=== PATIENT | male | born 1945 | race Caucasian/White ===

== ENCOUNTER 2017-04-18 08:00 | Day surgery (SDC) | payer MEDICARE, BC ==
[~2017-04-18] VITALS: Ht 182.9 cm; Wt 93.4 kg
[~2017-04-18 08:00] MED LIST: ASPI1TAB PO; CRES40TA PO; D31000CA4 PO; ISOS30TA4 PO; LOSA50TA20 PO; LR 1,000 ML IV ONE; METF500T13 PO; NEXI20GR PO; WARF-21 PO; WARF-22 PO; WARF-23 PO; [UNRECOGNIZED DRUG - OTHER] PO
[2017-04-18 08:43] LABS: INR 1.07
[2017-04-18 08:56] LABS: BILIRUBIN,DIRECT 0.2 MG/DL (0.0-0.2); BILIRUBIN,TOTAL 0.7 MG/DL (0.2-1.0)
[2017-04-18] MEDS ORDERED: LOVE0.8I SC (09:06)
[2017-04-18] MEDS ORDERED: LIDOCAINE 2% INJ 100 MG/5 ML SDV (FOR ANES.) As Ordered ONE ×2 (09:36→10:53)
[2017-04-18] MEDS ORDERED: GLYCOPYRROLATE INJ 0.2 MG/ML 2 ML VIAL As Ordered ONE (09:36)
[2017-04-18] MEDS ORDERED: ROCURONIUM BROMIDE 50 MG/5 ML VIAL/SYRINGE As Ordered ONE ×2 (09:36→10:45)
[2017-04-18] MEDS ORDERED: PROPOFOL 200 MG/20 ML VIAL As Ordered ONE ×2 (09:36→10:53)
[2017-04-18] MEDS ORDERED: ONDANSETRON 4MG/2ML VIAL (J2405) As Ordered ONE (09:36)
[2017-04-18] MEDS ORDERED: MIDAZOLAM INJ 2 MG/2 ML VIAL (J2250) As Ordered ONE (09:36)
[2017-04-18] MEDS ORDERED: BUPIVACAINE/EPIN 0.25% 30 ML VIAL As Ordered ONE (09:52)
[2017-04-18] MEDS ORDERED: fentaNYL 100 MCG/2 ML INJECTION (J3010) As Ordered ONE ×2 (10:17→10:53)
[2017-04-18] MEDS ORDERED: HYDROmorphone HCL 2 MG/ML 1ML VIAL (J1170) As Ordered ONE (10:54)
[2017-04-18] MEDS ORDERED: HYDROmorphone HCL 1 MG/ML SYRINGE (J1170) IV PRN (12:00)
[2017-04-18] MEDS ORDERED: NORCO, ANEXSIA 5/325MG TABLET (HYDROcodone/ACETAMINOPHEN) PO PRN (12:00)
[2017-04-18] MEDS ORDERED: PERCOCET 5MG/325MG TAB PO PRN (12:00)
[2017-04-18] MEDS ORDERED: fentaNYL 100 MCG/2 ML INJECTION (J3010) IV PRN (12:00)
[2017-04-18] MEDS ORDERED: LR 1,000 ML IV SCH (12:00)
[2017-04-18] MEDS ORDERED: ONDANSETRON 4MG/2ML VIAL (J2405) IV PRN (12:00)
[2017-04-18] MEDS ORDERED: METOCLOPRAMIDE INJ 10MG/2ML VIAL (J2765) As Ordered ONE (13:24)
[2017-04-18] MEDS ORDERED: METOCLOPRAMIDE INJ 10MG/2ML VIAL (J2765) IV ONE (13:45)
[2017-04-18 14:01] VITALS: BP 149/67
--- NOTE | 2017-04-21 06:53 | RO ---
DATE OF PROCEDURE: 04/18/2017 PREOPERATIVE DIAGNOSIS: Chronic cholecystitis with cholelithiasis. POSTOPERATIVE DIAGNOSIS: Chronic cholecystitis with cholelithiasis. PROCEDURE: Laparoscopic cholecystectomy. SURGEON: Dr. Milad Monson PIPE OUT WORKER: Dr. Kirk ANESTHESIA: General: ESTIMATED BLOOD LOSS: 10. COMPLICATIONS: None. INDICATIONS FOR PROCEDURE: The patient is a 71-year-old male who had a history of bacteremia recently due to an attack of acute cholecystitis. He was then transferred to [place] for evaluation. Recommendation was to proceed with laparoscopic and possible open cholecystectomy. We checked his labs preoperatively. His bilirubins were all normal. Therefore, there was no need for intraoperative cholangiogram (IOC) at this time. The risks and benefits of the procedure, not limited to, but including bleeding, infection, hernia formation, damage to surrounding structures, and need for further surgery were discussed in detail with the patient. Informed consent was obtained and the procedure was planned. PROCEDURE: The patient was brought back to operating room six after sufficient sedation and the abdomen was sterilely prepped and draped. Next, a time out was done to confirm proper patient and proper procedure. Following that, a stab incision was made in left upper quadrant and a Veress needle was inserted and the abdomen was insufflated to 15 mmHg. Next, a 5 mm incision was made infraumbilically. The incision was carried down to the level of the fascia. The abdomen was entered with a 5 mm OptiView port. The abdomen was examined, noting a lot of adhesions in the right upper quadrant and a normal Veress site. The Veress was then removed and the incision was extended and a 5 mm port was placed there. Using sharp dissection, the adhesions were all taken down without any difficulty. Once that was completed, an 11 mm port was placed subxiphoid and two 5 mm ports in the right upper quadrant. The gallbladder was grasped and elevated up towards the right shoulder. The cystic duct and cystic artery were both dissected free using a combination of blunt and sharp dissection. Once they were both clearly identified, they were both doubly clamped and cut. The gallbladder was then removed from the gallbladder fossa using electrocautery. The right upper quadrant was examined. No signs of bleeding were noted. The abdomen was then desufflated again. Skin incisions were closed with #4-0 Vicryl subcuticular sutures. The abdomen was cleaned and dried. Steri-Strips, 4x4 and tape were applied, thus ending the procedure.
== END 2017-04-18 15:15 | disposition home or self-care (01) ==
LOC: M SDC 08:00
PROVIDERS: ATTEND Surgery
DX: K80.10 Calculus of gallbladder with chronic cholecystitis without obstruction (principal)

== ENCOUNTER 2017-04-20 08:53 | Inpatient (IN) | payer MEDICARE, BC ==
[~2017-04-20] VITALS: Ht 182.9 cm; Wt 99.2 kg
[~2017-04-20 08:53] MED LIST changes: +LOVE0.8I SC; -LR 1,000 ML IV ONE
[2017-04-20] MEDS ORDERED: NS 500 ML IV ONE ×2 (09:15→10:00)
[2017-04-20] MEDS ORDERED: fentaNYL 100 MCG/2 ML INJECTION (J3010) IV ONE ×2 (09:30→11:00)
[2017-04-20] MEDS ORDERED: MORPHINE 2 MG/ML 1ML SYRINGE IV ONE (09:30)
[2017-04-20 09:41] LABS: BASO # 0.1 K/mm3 (0.0-0.2); BASO % 0.3 % (0.0-1.0); EOS % 0.3 % (0.0-3.0); LARGE UNSTAINED CELL # 0.3 K/mm3 (0.0-0.4); LARGE UNSTAINED CELL % 1.7 % (0.0-4.0); LYMPH # 1.6 K/mm3 (1.5-4.5); LYMPH % 7.9 % (24.0-44.0); MEAN CORPUSCULAR HEMOGLOBIN 31.7 pg (27.0-33.0); MEAN CORPUSCULAR HGB CONC 33.7 g/dl (32.0-36.5); MEAN CORPUSCULAR VOLUME 94.2 fl (80.0-96.0); MONO # 1.5 K/mm3 (0.0-0.8); MONO % 8.9 % (0.0-5.0); NEUTROPHILS # 13.6 K/mm3 (1.8-7.7); PLATELET COUNT, AUTOMATED 231 k/mm3 (150-450); WHITE BLOOD COUNT 16.8 K/mm3 (4.0-10.0)
[2017-04-20] MEDS ORDERED: NS 250 ML IV ONE ×2 (09:45→10:15)
[2017-04-20 09:46] LABS: INR 1.47
[2017-04-20 09:49] LABS: ALBUMIN 3.6 GM/DL (3.2-5.2); ALBUMIN/GLOBULIN RATIO 0.88 (1.00-1.93); BILIRUBIN,DIRECT 0.4 MG/DL (0.0-0.2); BILIRUBIN,TOTAL 1.4 MG/DL (0.2-1.0); CALCIUM LEVEL 8.8 MG/DL (8.8-10.2); CREATININE FOR GFR 3.5 MG/DL (0.70-1.30); GLOMERULAR FILTRATION RATE 18.5 (>42); POTASSIUM SERUM 3.9 MEQ/L (3.5-5.1); TOTAL PROTEIN 7.7 GM/DL (6.4-8.2)
[2017-04-20] MEDS ORDERED: NS 1,000 ML IV ONE (10:15)
[2017-04-20] MEDS ORDERED: PIPERACILLIN/TAZOBACTAM SOD 2.25 GM in D5W MINI-BAG PLUS 50 ML IV ONE (10:15)
[2017-04-20] MEDS ORDERED: ISOS30TA4 PO (10:44)
[2017-04-20] MEDS ORDERED: NEXI20CA PO (10:44)
[2017-04-20] MEDS ORDERED: ASPI81TA24 PO (10:44)
[2017-04-20] MEDS ORDERED: VITA100066 PO (10:44)
[2017-04-20] MEDS ORDERED: LOVE0.8I SC (10:44)
[2017-04-20] MEDS ORDERED: EYECAP PO (10:44)
[2017-04-20] MEDS ORDERED: LOSA50TA20 PO (10:44)
[2017-04-20] MEDS ORDERED: WARF-21 PO (10:48)
[2017-04-20] MEDS ORDERED: SENO8.6T10 PO (10:48)
[2017-04-20] MEDS ORDERED: CRES40TA PO (10:48)
[2017-04-20] MEDS ORDERED: WARF-22 PO (10:48)
[2017-04-20] MEDS ORDERED: ACETAMINOPHEN TAB 650MG DOSE (2X325MG) PO PRN (11:45)
[2017-04-20] MEDS ORDERED: ONDANSETRON 4MG/2ML VIAL (J2405) IV PRN (11:45)
[2017-04-20] MEDS ORDERED: NORCO, ANEXSIA 5/325MG TABLET (HYDROcodone/ACETAMINOPHEN) PO PRN (11:45)
[2017-04-20] MEDS: LR 1,000 ML IV SCH ×2 (12:20→18:40)
[2017-04-20] MEDS: MORPHINE 4 MG/ML 1ML SYRINGE IV PRN ×4 (12:20→23:54)
--- NOTE | 2017-04-20 13:01 | HPEPDOC ---
General Surgery H&P Date of Admission Apr 20, 2017 at 11:36 History and Physical CHIEF COMPLAINT: abdominal pain HISTORY OF PRESENT ILLNESS: 71 M with significant history of mechanical heart valve on coumadin who had cholecystectomy done last Friday and returns to the ED complaining of severe right upper quadrant abdominal pain, worsening with taking deep breaths. He has been maintained on lovenox (last dose this am) and he has resumed his coumadin (took last night). He reports increasing right upper quadrant discomfort not relieved by the norco he was given postoperatively. He was brought to [facility] ER last night, labs drawn were unremarkable and discharged home on percocets after he felt mildly improved with morphine. Overnight he did not get any relief from his abdominal pain and was having low grade fever. ALLERGIES: Please see below. HOME MEDICATIONS: Please see below. 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 ATHEROSCLEROSIS CORONARY ARTERY WITH UNSTABLE PECTORIS URINARY CALCULI OCULAR MIGRAINES HYPERLIPIDEMIA CATARACT BILATERAL ALLERGIC RHINITIS BUNDLE BRANCH BLOCK BARRETTS ESOPHAGUS HYPERTENSION ATYPICAL CHEST PAIN ENLARGED PROSTATE SOLITARY PULMONARY NODULE CHOLELITHIASIS WITHOUT OBSTRUCION MACULAR DEGENERATION LUMBAGO REMOTE ADVISOR USE OF ANTICOAGULANTS GLAUCOMA CHRONIC KINDEY DISEASE STAGE 3 CERVICALGIA PAST SURGICAL HISTORY: ANGIOGRAM 12/13 ANGIOPLASTY W/STENT 10/08 AND 10/12 APPENDECTOMY 1980 CABG 1992 COLONOSCOPY 12/31 AND 02/01 AND 04/05 AND 05/09 VARICOSE VEINS 1977 AORTIC VALVE REPLACEMENT 12/06 PERSONAL/SOCIAL HISTORY: Denies smoking, alcohol use, or recreational drug use. REVIEW OF SYSTEMS: GENERAL: Reports low-grade fever, no chills over the weekend postoperatively HEENT: Denies blurred vision and double vision. Denies ear symptoms. Denies hoarseness. NECK: Denies any neck pain. CARDIOVASCULAR: Denies chest pain and palpitations. MUSCULOSKELETAL: Denies arthralgias, back pain and thrombophlebitis. SKIN: Denies rash. NEUROLOGIC: Denies headache, stroke and transient ischemic attack. PSYCHIATRIC: Denies anxiety and depression. ENDOCRINE: Denies thyroid disease. HEMATOLOGY/ONCOLOGY: Denies any bleeding or clotting disorder. Patient is on Lovenox shots as bridge therapy and Coumadin for mechanical heart valve HEART: Denies any chest pains, palpitations, paroxysmal dyspnea, orthopnea. PULMONARY: Denies chronic cough, dyspnea and wheezing. GASTROINTESTINAL: Denies rectal bleeding, family history of colon cancer, constipation, diarrhea, dysphagia, heartburn and jaundice. GENITOURINARY: Denies dysuria, frequency, hematuria and nocturia. ENDOCRINE: Denies polydipsia, polyphagia, polyuria, heat or cold intolerance. INFECTIOUS: Denies any recent upper respiratory tract infection, UTI, need for use of antibiotics. NUTRITION: Reports poor appetite PHYSICAL EXAMINATION: VITAL SIGNS: Please see below. GENERAL APPEARANCE: Patient seen at bedside, mildly uncomfortable. HEENT: Normocephalic, atraumatic. Slight pale palpebral conjunctivae. Anicteric sclerae. Lips dry CHEST: No chest wall abnormalities. Normal respiratory motion/effort. NECK: Supple. No thyromegaly. No lymphadenopathies. LUNGS: Lung sounds are clear to auscultation bilaterally. No wheezing appreciated. Decreased breath sounds both bilateral areas. HEART: No chest wall abnormalities. Heart rate and rhythm are regular with no murmurs. ABDOMEN: Abdomen is obese, markedly rounded, protuberant, tympanitic to percussion, port sites are clean dry and intact, small amount of hematoma in the left side/left flank area. Tender to palpation over the right upper quadrant with mild guarding. SKIN: Warm, dry EXTREMITIES: Extremities have no deformities. No edema identified. NEUROLOGICAL: . ANCILLARIES: . LABORATORY DATA: Please see below. MICROBIOLOGY: Please see below. IMAGING: Noncontrast CT abdomen and pelvis Very large new perihepatic hematoma, largely subcapsular but with some hemoperitoneum. There is a small, component of hematoma in the omental fat. At its largest, the perihepatic hematoma displayes dimensions of 16.8 centimeters anteroposterior by 6.0 cm medial to lateral by 17.9 cm craniocaudal. IMPRESSION AND PLAN: S/P Laparoscopic Cholecystectomy Postoperative hematoma Dehydration - with acute elevation of his BUN and creatinine Patient will be admitted to the PCU we will continue to monitor his hemodynamic parameters as well as his hemoglobin and hematocrit. He may or may not need blood transfusion. So far he got 2 L of IV fluids and 125 ML's of crystalloid in our running. He was reported to have had some drop in his blood pressure when he got up to urinate. With regards to his anticoagulation, we'll hold both the Lovenox and the Coumadin. His Lovenox would still be active at this point that he got a shot of Lovenox this morning. Unfortunately this is not reversible. Also the main issue will be trying to balance the timing of the anticoagulation to the bleeding. He will need to restart his anticoagulation probably will heparin drip once we are sure that his active bleeding has stopped. The last the medical service to come see him and help us manage his other medical problems. Vital Signs Vital Signs Date Time Temp Pulse Resp B/P (MAP) Pulse Ox O2 Delivery O2 Flow Rate FiO2 04/20/17 12:20 16 04/20/17 10:30 88 97/58 (71) 98 04/20/17 09:15 Room Air 04/20/17 08:53 97.7 Laboratory Data Labs 24H Laboratory Tests 2 04/20/17 09:03: White Blood Count 16.8H, Red Blood Count 4.29L, Hemoglobin 13.6L, Hematocrit 40.4L, Mean Corpuscular Volume 94.2, Mean Corpuscular Hemoglobin 31.7, Mean Corpuscular Hemoglobin Concent 33.7, Red Cell Distribution Width 14.0, Platelet Count 231, Neutrophils (%) (Auto) 81.0H, Lymphocytes (%) (Auto) 7.9L, Monocytes (%) (Auto) 8.9H, Eosinophils (%) (Auto) 0.3, Basophils (%) (Auto) 0.3, Neutrophils # (Auto) 13.6H, Lymphocytes # (Auto) 1.6, Monocytes # (Auto) 1.5H, Eosinophils # (Auto) 0.0, Basophils # (Auto) 0.1, Large Unclassified Cells % 1.7 , Large Unclassified Cells # 0.3, Prothrombin Time 18.2H, Prothromb Time International Ratio 1.47, Activated Partial Thromboplast Time 58.7H, Anion Gap 15, Glomerular Filtration Rate 18.5L, Lactic Acid Level 6.4*H, Calcium Level 8.8 , Aspartate Amino Transf (AST/SGOT) 76H, Alanine Aminotransferase (ALT/SGPT) 102H, Alkaline Phosphatase 62, Total Bilirubin 1.4#H, Direct Bilirubin 0.4H, Total Creatine Kinase 88, Creatine Kinase MB 1.0, Creatine Kinase MB Relative Index 1.13, Troponin I 0.06, Total Protein 7.7, Albumin 3.6, Albumin/Globulin Ratio 0.88L, Lipase 261 CBC/BMP Laboratory Tests 04/20/17 09:03 Red Blood Count 4.29 L, Mean Corpuscular Volume 94.2, Mean Corpuscular Hemoglobin 31.7, Mean Corpuscular Hemoglobin Concent 33.7, Red Cell Distribution Width 14.0, Neutrophils (%) (Auto) 81.0 H, Lymphocytes (%) (Auto) 7.9 L, Monocytes (%) (Auto) 8.9 H, Eosinophils (%) (Auto) 0.3, Basophils (%) ( Auto) 0.3, Neutrophils # (Auto) 13.6 H, Lymphocytes # (Auto) 1.6, Monocytes # ( Auto) 1.5 H, Eosinophils # (Auto) 0.0, Basophils # (Auto) 0.1 Microbiology Microbiology 04/20/17 Blood Culture, Received Pending 04/20/17 Blood Culture, Received Pending Home Medications Scheduled Aspirin (Aspirin EC) 81 Mg Tab, 81 MG PO QHS, (Reported) Cholecalciferol (Vitamin D) 1,000 Unit Tab, 1,000 UNIT PO DAILY, (Reported) Enoxaparin Sodium (Lovenox) 100 Mg/Ml Inj, 100 MG SC DAILY, (Reported) Esomeprazole Magnesium Trihydr (Nexium) 20 Mg Cap, 20 MG PO BID, (Reported) Isosorbide Mononitrate (Isosorbide Mononitrate ER) 30 Mg Tab, 30 MG PO DAILY, ( Reported) Losartan Potassium (Losartan Potassium) 50 Mg Tab, 50 MG PO QHS, (Reported) Multivitamins (Eye Vitamins) 1 Cap Cap, 1 CAP PO DAILY, (Reported) Rosuvastatin Calcium (Crestor) 40 Mg Tab, 40 MG PO QHS, (Reported) Warfarin Sod (Warfarin Sodium) 10 Mg Tab, 10 MG PO 5XW, (Reported) QHS: SUN, , WED, FRI, SAT Warfarin Sod (Warfarin Sodium) 7.5 Mg Tab, 7.5 MG PO 2XW, (Reported) QHS: MON & THURS Scheduled PRN Docusate Sod/Senna (Senokot S 8.6-50 mg) 1 Tab Tab, 1 TAB PO BID PRN for CONSTIPATION, (Reported) Allergies Coded Allergies: No Known Allergies (Unverified , 04/18/17) VALE SANFORD MD Apr 20, 2017 13:01
[2017-04-20 14:20] VITALS: BP 116/62
--- NOTE | 2017-04-20 19:16 | CR ---
DATE OF CONSULTATION: 04/20/2017 This is a patient of Dr. Ballesteros, Dr. Pathak, Dr. Monson. CHIEF COMPLAINT: Abdominal pain. SUMMARY OF PRESENTATION: This is a 71-year-old who had a laparoscopic cholecystectomy done on 04/18/2017. He has a mechanical mitral valve, was sent home with Lovenox for anticoagulation. He felt somewhat bloated and uncomfortable when he went home. On Friday the pain got worse. On Friday he went to the [place] emergency room around 5:00 p.m. on Friday and stayed there until about 11:30. He was sent home with some pain medication. He had a terrible evening. He has sharp right upper quadrant pain, made worse with breathing. He said that it even hurts to burp. He had no vomiting. No chest pain. He had a normal bowel movement on Friday but not one today. He normally is quite flatulent. Today he has only had one episode of flatus and none recently. He has had no chest pain. This past evening he woke up at 5:00 a.m. He was not feeling well. He drank a large cup of iced coffee, too, his medications and his Lovenox, went back to bed and woke up at 7:00 to 7:30, felt lightheaded and like he might pass out. He felt that way all morning and his called the surgical service and he was instructed to come to the emergency department. In the emergency department, he was found to have evidence of an intraabdominal hematoma. He is undergoing transfusions at this point on the surgical service and I was asked to see him in medical consultation. He has listed allergy to doxycycline. Home medication list is not yet available. PAST MEDICAL HISTORY: Notable for: 1. Anemia. 2. Gastroesophageal reflux disease (GERD). 3. Anxiety. 4. Colonic polyps. 5. Varicose veins. 6. He has a listed diagnosis of aortic valve replacement. 7. History of atherosclerosis. 8. Urinary stones. 9. Ocular migraines. 10. Hyperlipidemia. 11. Cataracts. 12. Allergic rhinitis. 13. Left bundle branch block. 14. Cedillo's esophagus. 15. Hypertension. 16. Enlarged prostate. 17. Solitary pulmonary nodule. 18. Cholelithiasis. 19. Macular degeneration. 29. Chronic kidney disease stage III. I do not know his baseline creatinine. SURGICAL HISTORY: 1. Angiogram. 2. Stenting. 3. Appendectomy. 4. Coronary artery bypass graft (CABG). 5. Colonoscopies. 6. Aortic valve replacement in November 2006. FAMILY HISTORY: Notable for a father who at age 66 of some sort of bone cancer. Mother at age 90 of old age. SOCIAL HISTORY: He has a remote smoking history. He does not drink any particular alcohol. REVIEW OF SYSTEMS: Notable for no headache. No visual changes. No runny nose. No sore throat. He is not particularly hungry. He does not have chest pain. He has not been short of breath. No palpitations. He has felt lightheaded when he stands up. He had a bowel movement yesterday. He did not describe any dysuria. Otherwise unremarkable. PHYSICAL EXAMINATION: VITAL SIGNS: Temperature 98.0, pulse 91, respiratory rate 18, blood pressure 116/62, 97% on room air. His blood pressure has been low. He is awake, appropriately interactive, pleasantly conversant. He is uncomfortable with position change and spontaneously intermittently he is seen to wince. HEAD: Normocephalic. Sinuses nontender. Mucous membranes are tacky. NECK: Supple. Thick. LUNGS: Breathing is symmetrically diminished. HEART: Distant sounding. Normal S1, S2. There is a metallic click, loudest on the left mid clavicular line, which to me seems somewhat unusual for an aortic valve. Radial pulses are 1+. Capillary refill is less than 2 seconds. ABDOMEN: Grossly distended. Tympanitic. There is bruising of the subcutaneous tissue, especially on the left lower quadrant. There is tenderness in the right upper quadrant without rebound or guarding. EXTREMITIES: There is no significant lower extremity edema. He is moving all four extremities. PSYCHIATRIC: He has normal mood and affect. White cell count is 16.8, hemoglobin 13.6, and platelets of 231. INR is 1.47. BUN 23, creatinine 3.5. We do not have a baseline. Glucose of 167, lactic acid 6.4 and repeat is 3.8. Troponin 0.06. Blood culture pending. Abdominal and pelvic CT shows very large new perihepatic hematoma, largely subcapsular with some hemoperitoneum. There is a small component of hematoma in the omental fat. Perihepatic hematoma displays dimensions of 16 cm anteroposteriorly by 6 cm medially to laterally by 17.9 cm equina caudal. Chest x-ray showed bilateral lower plate-like atelectasis, right greater than left. Relatively low level of inspiration. Previous sternotomy. ASSESSMENT: As follows: This is a 71-year-old with postoperative hematoma. PLAN: As follows: 1. Hematoma. Management per the primary surgery team. At this point, the plan is to withhold Lovenox and plan to restart with heparin for prophylaxis against stroke in the setting of his mechanical valve. I would recommend following up with his outpatient mobile security specialist tomorrow for further guidance or perhaps even consultation as deemed clinically necessary. Certainly stop anticoagulation for 24 hours is not unreasonable and even 48 could be considered, but would defer to cardiology in this regard. 2. The patient has acute renal failure. We do not know his baseline creatinine. We will obtain old records from Dr. Ballesteros, as able tomorrow. We will calculate a FENA. Giving IV fluids and blood. Most likely this represents a hypotensive state. The patient is receiving blood during my evaluation. 3. The patient has hyperlipidemia. We will continue his statin. 4. The patient has hypertension by history, which certainly is not a current problem. 5. The patient has a doting family at bedside. 6. Deep vein thrombosis (DVT) prophylaxis will be mechanical. MTDD
[2017-04-20 19:48] LABS: CALCIUM LEVEL 7.9 MG/DL (8.8-10.2); CREATININE FOR GFR 3.73 MG/DL (0.70-1.30); GLOMERULAR FILTRATION RATE 17.2 (>42); POTASSIUM SERUM 4.5 MEQ/L (3.5-5.1)
[2017-04-20 19:59] VITALS: BP 120/59
[2017-04-20 20:54] LABS: CALCIUM OXALATE CRYSTALS SMALL
[2017-04-20] MEDS ORDERED: ROSUVASTATIN 10 MG TAB (CRESTOR) PO SCH (21:00)
[2017-04-20] MEDS ORDERED: PANTOPRAZOLE 40MG INJ (PROTONIX) (C9113) IV ONE (21:30)
--- NOTE | 2017-04-20 21:37 | ECGEPIP ---
Stationary ECG Study [facility] - ED Test Date: 2017-04-20 Pat Name: NEENA THOMPSON Department: Room: - Gender: M Piggery Worker: bryant : 1945 Requested By: GAVIN Reid Order Number: [id number] Reading MD: Magali Lindsay Measurements Intervals [place] Rate: 97 P: 40 W[place]: 183 QRS: 269 QRSD: 148 T: 39 QT: 371 QTc: 473 Interpretive Statements SINUS RHYTHM MARKED RIGHT AXIS DEVIATION RIGHT BUNDLE BRANCH BLOCK NO PRIOR FOR COMPARISON Electronically Signed On 04-20-2017 21:37:17 EDT by Magali Lindsay
[2017-04-20] MEDS: NORCO, ANEXSIA 5/325MG TABLET (HYDROcodone/ACETAMINOPHEN) PO PRN (21:44)
[2017-04-20] MEDS: SENOKOT S TAB PO SCH (21:45)
[2017-04-20 23:46] VITALS: BP 118/62
[2017-04-21] VITALS (21 sets, daily range): BP systolic 78–116; BP diastolic 46–72
[2017-04-21 02:40] LABS: ALBUMIN 2.8 GM/DL (3.2-5.2); ALBUMIN/GLOBULIN RATIO 0.88 (1.00-1.93); CALCIUM LEVEL 7.7 MG/DL (8.8-10.2); CREATININE FOR GFR 4.66 MG/DL (0.70-1.30); GLOMERULAR FILTRATION RATE 13.3 (>42); POTASSIUM SERUM 4.6 MEQ/L (3.5-5.1)
[2017-04-21] MEDS ORDERED: LR 1,000 ML IV ONE (03:00)
[2017-04-21] MEDS: LR 1,000 ML IV SCH ×2 (04:00→11:36)
[2017-04-21] MEDS: NORCO, ANEXSIA 5/325MG TABLET (HYDROcodone/ACETAMINOPHEN) PO PRN (04:52)
[2017-04-21 08:21] LABS: ALBUMIN 2.9 GM/DL (3.2-5.2); ALBUMIN/GLOBULIN RATIO 1.16 (1.00-1.93); ALKALINE PHOSPHATASE 64 U/L (45-117); ALT/SGPT 2090 U/L (12-78); ANION GAP 14 MEQ/L (8-16); AST/SGOT 2383 U/L (15-37); BILIRUBIN,TOTAL 0.9 MG/DL (0.2-1.0); BLOOD UREA NITROGEN 44 MG/DL (7-18); CALCIUM LEVEL 7.7 MG/DL (8.8-10.2); CARBON DIOXIDE LEVEL 22 MEQ/L (21-32); CHLORIDE LEVEL 102 MEQ/L (98-107); CREATININE FOR GFR 5.07 MG/DL (0.70-1.30); GLOMERULAR FILTRATION RATE 12.1 (>42); GLUCOSE, FASTING 136 MG/DL (83-110); MAGNESIUM LEVEL 2.1 MG/DL (1.8-2.4); PHOSPHORUS LEVEL 5.5 MG/DL (2.5-4.9); POTASSIUM SERUM 4.7 MEQ/L (3.5-5.1); SODIUM LEVEL 138 MEQ/L (136-145); TOTAL PROTEIN 5.4 GM/DL (6.4-8.2)
[2017-04-21] MEDS: SENOKOT S TAB PO SCH ×2 (09:00→21:00)
[2017-04-21] MEDS ORDERED: MORPHINE 2 MG/ML 1ML SYRINGE IV ONE ×2 (09:30→10:45)
[2017-04-21] MEDS: PANTOPRAZOLE 40MG INJ (PROTONIX) (C9113) IV SCH (09:31)
[2017-04-21] MEDS: MORPHINE 4 MG/ML 1ML SYRINGE IV PRN ×2 (12:44→14:55)
[2017-04-21 12:50] LABS: BASO % 0.1 % (0.0-1.0); EOS % 0.3 % (0.0-3.0); LARGE UNSTAINED CELL # 0.3 K/mm3 (0.0-0.4); LARGE UNSTAINED CELL % 2.3 % (0.0-4.0); LYMPH # 0.8 K/mm3 (1.5-4.5); LYMPH % 5.2 % (24.0-44.0); MEAN CORPUSCULAR HEMOGLOBIN 31.3 pg (27.0-33.0); MEAN CORPUSCULAR HGB CONC 33.6 g/dl (32.0-36.5); MEAN CORPUSCULAR VOLUME 93.2 fl (80.0-96.0); NEUTROPHILS # 9.3 K/mm3 (1.8-7.7); NEUTROPHILS % 83.1 % (36.0-66.0); PLATELET COUNT, AUTOMATED 206 k/mm3 (150-450); RED CELL DISTRIBUTION WIDTH 14.6 % (11.5-14.5); WHITE BLOOD COUNT 11.2 K/mm3 (4.0-10.0)
--- NOTE | 2017-04-21 13:45 | REP ---
CT ABDOMEN AND PELVIS WITHOUT IV OR ORAL CONTRAST: HISTORY: Abdomen pain. Status post gallbladder surgery [address] FINDINGS: There is a very large new hematoma along the right anterior and lateral and posterior aspect of the liver. Much of this appears to be subcapsular in its configuration and appearance, however there is some blood tracking in the some hepatic space and the perihepatic space extending into the paracolic gutter. There is also some hemoperitoneum in the pelvic reflections. Spleen is unremarkable and unchanged. No pancreatic abnormality is seen. There are gallbladder clips. There is some adjacent small hematoma in the omental fat beneath the gallbladder fossa. IMPRESSION: Very large new perihepatic hematoma, largely subcapsular but with some hemoperitoneum. There is a small, component of hematoma in the omental fat. At its largest, the perihepatic hematoma displays dimensions of 16.8 cm anteroposterior x 6.0 cm medial to lateral x 17.9 cm craniocaudal. Signed by Twan Mcleod MD 04/21/2017 03:04 P
[2017-04-21 14:01] LABS: ALBUMIN 2.7 GM/DL (3.2-5.2); BILIRUBIN,TOTAL 0.9 MG/DL (0.2-1.0); CALCIUM LEVEL 7.4 MG/DL (8.8-10.2); CREATININE FOR GFR 5.68 MG/DL (0.70-1.30); GLOMERULAR FILTRATION RATE 10.6 (>42); POTASSIUM SERUM 5.1 MEQ/L (3.5-5.1); TOTAL PROTEIN 5.4 GM/DL (6.4-8.2)
--- NOTE | 2017-04-21 14:31 | REP ---
Portable chest x-ray: Sitting AP view. History: Systemic inflammatory response syndrome. Comparison chest x-ray February 07, 2016. Findings: The lungs are exposed at a lesser level of inspiration. There is bibasilar linear opacity consistent with discoid atelectasis. This is heavier and more coarse on the right than on the left. No other infiltrate is seen. No evidence of pleural effusion. Impression: Prior sternotomy. Bilateral lower lobe plate-like atelectasis, right greater than left. Relatively low level of inspiration. Signed by Twan Mcleod MD 04/21/2017 03:07 P
--- NOTE | 2017-04-21 16:39 | IPNPDOC ---
Text Note Date of Service The patient was seen on 04/21/17. NOTE Subjective: Patient is a 71 year old male with a PMHx of Mechanical aortic valve replacement (on Coumadin), CAD, LBBB, HTN, DLP, CKD3 (Cr of 1.1 on 03/24/17) Allergic rhinitis, Solitary pulmonary nodule, Anemia, Hx of Nephrolithiasis, Migraines, Anxiety, BPH, Cedillo's Esophagus and GERD. Patient had a laparoscopic cholecystectomy on 04/18/17 and was sent home with Lovenox for his mechanical aortic valve. He began to develop abdominal pain at home, presented to the ER on 04/20 and was found to have a perihepatic hematoma. Patient was admitted to surgery's service and hospitalist service was consulted. Patient was seen and examined at the bedside. Currently he still notes extensive RUQ abdominal pain. Patient complained of nausea this morning and had an NG tube placed. He denies any chest pain or shortness of breath. He does note that he is dizzy upon ambulation. Objective: Vitals (See below) General: Lying in bed, no acute distress, comfortable, AAOx3 HEENT: NC, AT CVS: RRR, +S1S2, Mechanical S2 Lungs: Fair air entry b/l, -w/r/r Abdomen: Soft, ND, Tenderness at RUQ Extremities: - Edema, - Calf tenderness Assessment and plan: RUQ abdominal pain - likely 2/2 perihepatic hematoma - likely 2/2 recent surgical procedure - Presented to ER with abdominal pain - Physical with RUQ tenderness - Hemoglobin of ~14 on presentation; likely hemoconcentrated - CT abdomen 04/21: Perihepatic hematoma, subcapsular but with some hemoperitoneum, 16.8 x 6.0 x 17.9 cm - Has been transfused 3 units PRBC - Will continue to follow Hg and transfuse as required - Surgery following and managing - Discussed with Cardiology (Dr. Peralta); plan will be to remain off anticoagulation until Hg and hematoma stabilize Hypotension - likely 2/2 hypovolemia - See #1 Acute renal failure - likely 2/2 pre-renal etiology 2/2 hypovolemia / hypotension, possible intra-renal etiology 2/2 ATN - FENa of 0.3% - Hx of CKD3 with baseline Cr of 1.1 on 03/24/17 - CT abdomen does not appear to show any signs of hydronephrosis - c/w Aggressive IV fluid hydration; will switch LR to NS - Will hold on Renal US (re: CT abdomen completed) - Discussed case with Nephrology (Dr. Guerrero) on consult; appreciate their input Mechanical aortic valve replacement - on Coumadin as an outpatient - Was being bridged with Lovenox as an outpatient - See Hematoma section for Cardiology plan CAD LBBB HTN - Hold BP meds DLP - c/w Rosuvastatin Allergic rhinitis Solitary pulmonary nodule Hx of Nephrolithiasis Migraines Anxiety BPH - c/w Cedillo's Esophagus / GERD - c/w Protonix DVT prophylaxis - c/w SCDs VS,Fishbone, I+O VS, Fishbone, I+O Laboratory Tests 04/20/17 19:14 Calcium Level 7.9 L 04/21/17 02:07 Calcium Level 7.7 L, Aspartate Amino Transf (AST/SGOT) 1770 H, Alanine Aminotransferase (ALT/SGPT) 1438 H, Alkaline Phosphatase 54, Total Bilirubin 1.0 , Total Protein 6.0 #L, Albumin 2.8 #L 04/21/17 07:07 04/21/17 08:00 Calcium Level 7.7 L, Aspartate Amino Transf (AST/SGOT) 2383 H, Alanine Aminotransferase (ALT/SGPT) 2090 H, Alkaline Phosphatase 64, Total Bilirubin 0.9 , Total Protein 5.4 L, Albumin 2.9 L, Phosphorus Level 5.5 H 04/21/17 12:05 Red Blood Count 3.12 L, Mean Corpuscular Volume 93.2, Mean Corpuscular Hemoglobin 31.3, Mean Corpuscular Hemoglobin Concent 33.6, Red Cell Distribution Width 14.6 H, Neutrophils (%) (Auto) 83.1 H, Lymphocytes (%) (Auto ) 5.2 L, Monocytes (%) (Auto) 9.0 H, Eosinophils (%) (Auto) 0.3, Basophils (%) ( Auto) 0.1, Neutrophils # (Auto) 9.3 H, Lymphocytes # (Auto) 0.8 L, Monocytes # ( Auto) 1.0 H, Eosinophils # (Auto) 0.0, Basophils # (Auto) 0.0, Calcium Level 7.4 L, Aspartate Amino Transf (AST/SGOT) 3515 H, Alanine Aminotransferase (ALT/ SGPT) 2881 H, Alkaline Phosphatase 74, Total Bilirubin 0.9, Total Protein 5.4 L , Albumin 2.7 L Vital Signs Date Time Temp Pulse Resp B/P (MAP) Pulse Ox O2 Delivery O2 Flow Rate FiO2 04/21/17 14:55 18 04/21/17 12:00 97.6 100 96/54 (68) 95 Room Air 04/21/17 08:06 2.0 I&O- Last 24 Hours up to 6 AM 04/21/17 06:00 Intake Total 5035 ml Output Total 200 ml Balance 4835 ml MILIND SYKES MD Apr 21, 2017 16:39
[2017-04-21] MEDS ORDERED: NS 1,000 ML IV SCH (17:00)
[2017-04-21 19:11] LABS: MEAN CORPUSCULAR HEMOGLOBIN 31.5 pg (27.0-33.0); MEAN CORPUSCULAR HGB CONC 33.8 g/dl (32.0-36.5); MEAN CORPUSCULAR VOLUME 93.1 fl (80.0-96.0); RED CELL DISTRIBUTION WIDTH 15.1 % (11.5-14.5)
--- NOTE | 2017-04-21 19:47 | CR ---
DATE OF CONSULTATION: 04/21/2017 REQUESTING PHYSICIAN: Pilar Good REASON FOR CONSULT: Oligoanuric Acute Kidney Injury HISTORY OF THE PRESENT ILLNESS: The patient is a 71-year-old male with a past medical history of mechanical aortic valve replacement, on Coumadin, history of coronary artery disease, left bundle branch block, hypertension, history of nephrolithiasis and benign prostatic hyperplasia, history of chronic kidney disease stage III with baseline creatinine of 1.1 to 1.3, history of anemia, gastroesophageal reflux disease (GERD) and solitary pulmonary nodule. Patient was in his usual state of health until 04/18/2017 when he had a laparoscopic cholecystectomy. He was subsequently sent home with [employer] for his history of mechanical aortic valve. At home on Friday, the patient began to develop right upper quadrant abdominal pain, unrelieved with Percocet. He went to [facility] and was given a different prescription pain medication and sent home from the hospital. The patient's abdominal pain persisted and he developed abdominal distention. The patient became lightheaded and dizzy, and he felt that he may pass out. His dizziness and lightheadedness worsened throughout the course of the day, and his called the surgical service and he was instructed to come to the emergency room. The patient notes that while he was at home, he had continued to take his home antihypertensives, which include losartan 50 mg daily and isosorbide 30 mg daily. He denies any use of nonsteroidal anti-inflammatory drugs (NSAIDS) for pain relief. In the emergency room, on arrival, the patient was tachycardic, heart rate 126 and hypotensive. Blood pressure 72/46. CT scan of the abdomen and pelvis demonstrated a very large new perihepatic hematoma 16 cm x 6 cm x 17 cm. The patient was given vigorous IV hydration with five liters of lactated Ringers and he also received two units of packed red blood cells. Labs demonstrated leukocytosis, a drop in hemoglobin and acute kidney injury and elevated transaminases. PAST MEDICAL HISTORY: Chronic kidney disease, stage II-III. Baseline creatinine obtained from Dr. Ballesteros's office. Creatinine on 03/24/2017 was 1.1. Creatinine on 04/19/2017 at [facility] was 1.2. History of aortic valve replacement, on Coumadin. History of nephrolithiasis. Left bundle branch block. Hypertension. Enlarged prostate. Anemia. Anxiety. Migraines. Dyslipidemia. Solitary pulmonary nodule. Cholelithiasis. SURGICAL HISTORY: Angioplasty with stent, 2006 and 2010. Coronary artery bypass graft (CABG) in 1992. Aortic valve replacement in 2006. Appendectomy in 1980. Cholecystectomy on 04/18/2017. PERSONAL AND SOCIAL HISTORY: Denies smoking, alcohol use or recreational drug use. FAMILY HISTORY: Father age 66 of malignancy. Mother age 90 of old age. No reported renal failure. REVIEW OF SYSTEMS: Notable for dizziness and lightheadedness at rest. No syncope or presyncope. No visual changes. No chest pain. No shortness of breath. No vomiting. No diarrhea. Positive for abdominal pain and distention and scattered ecchymosis over the abdomen and decreased urination. Denies lower extremity swelling. Remainder review of systems negative. PHYSICAL EXAMINATION: VITAL SIGNS: Temperature 99.3, pulse 106, blood pressure 110/72, pulse oximetry 93% on 2 liters nasal cannula. INTAKE AND OUTPUT: In the past 24 hours, the patient has received 6 liters of intravenous (IV) fluids, mostly lactated Ringers. He has had a urine output of 240 mL to Clayton catheter. GENERAL: He is awake, alert, oriented. He is appropriately interactive, and in no acute distress. He does complain of lightheadedness at rest and appears fatigued. HEAD: Normocephalic, moist tongue. Extraocular muscles intact. No pallor NECK: Supple. Neck veins not prominent LUNGS: Bilateral symmetric air entry. No crackles or rales appreciated. CVS: S1, S2 mechanical click, tachycardic, 2+ radial pulse ABDOMEN: Distended. Scattered ecchymosis, tympanic, tender right upper quadrant. Deep palpation not performed to avoid injury. GENITOURINARY (): Clayton catheter in place with minimal urine. EXTREMITIES: No significant lower extremity edema, no dependent edema. PSYCHIATRIC: Normal mood and affect. Neurologic: No focal deficit. Appropriately interactive. LABORATORY DATA: WBC 11.2, hemoglobin 9.8, platelets 206, INR 1.4, lactic acid improved to 1.7 from 6.4 on admission. Sodium 137, potassium 5.1, bicarbonate 21 , anion gap 15, creatinine 5.6 from baseline creatinine of 1.1, corrected calcium 8.5, phosphorus 5.5, magnesium 2.1. LFTs rising: AST 3500, ALT 2800. Microbiology: Blood cultures - no growth for 24 hours. IMAGING: CT of the abdomen and pelvis, noncontrast, demonstrates a large new perihepatic hematoma 16 x 6 x 17 cm. No hydronephrosis / obstruction. ASSESSMENT AND PLAN: A 71-year-old male with a history of mechanical aortic valve replacement, on Coumadin, status post laparoscopic cholecystectomy on 04/18/2017 with subsequent perihepatic hematoma and acute renal failure secondary to hemodynamically mediated tubular injury, likely acute tubular necrosis superimposed on ARB dysautoregulation. 1. Acute renal failure. This is secondary to hemodynamically-mediated acute tubular injury/acute tubular necrosis with superimposed ARB dysautoregulation. He has a baseline history of chronic kidney disease stage III with creatinine ranging from 1.1 to 1.3. Most recent outpatient labs on 03/24/2017 showed a creatinine of 1.1. On 04/19/2017, at [facility], his creatinine was 1.2. CT abdomen and pelvis reviewed. No hydronephrosis or obstruction seen. The patient remains with borderline hypotension. His home systolic blood pressure is usually 120s to 130s. Here, at best, he has systolic 110. Most of his readings persist to be systolic 90s and as low as systolic 70s and 80s. The patient continues to complain of dizziness even upon rest. He has been aggressively volume resuscitated with five liters of lactated Ringers and we will now switch to normal saline. He has also received two units of packed red blood cells transfusion. He has had a rapid deterioration in glomerular filtration rate (GFR ) and this may be a dense ATN. His urine output has been minimal, oligoanuric, 200 mL of urine to the Clayton catheter. His electrolytes thus far are fairly stable, and he has no urgent indication for dialysis at this moment. However, he has a high likelihood of progressing to need renal replacement therapy within the next 24 hours. As his blood pressures are borderline, he may not be able to tolerate intermittent hemodialysis and may require continuous renal replacement therapy. I have discussed the same with the admitting team and will reach out to the airline operations agent hot iron worker for transfer to the ICU. He will need close monitoring of his volume status while he is fluid resuscitated and concomitantly oligoanuric. 2. Perioperative hematoma, perihepatic hematoma; secondary to recent surgical procedure and long-term anticoagulation, has received three units of packed red blood cells and is being volume resuscitated. Surgery is following. The patient will remain off of anticoagulation until hemoglobin stabilizes. Along with his acute renal failure, he has other manifestations of hypotensive organ injury, including liver function tests (LFTs) that are in the 1000s. 3. Mechanical aortic valve replacement. Anticoagulation currently on hold. Plan of care was discussed at the bedside with the patient and his . The possibility of possible renal replacement therapy and dialysis catheter placement was discussed with the patient and his as well. Plan of care was discussed with Dr. Pilar Good. We will monitor his chemistries every 6 to 8 hours. [facility]
[2017-04-21 21:11] LABS: CALCIUM LEVEL 7.5 MG/DL (8.8-10.2); CREATININE FOR GFR 6.68 MG/DL (0.70-1.30); GLOMERULAR FILTRATION RATE 8.8 (>42)
[2017-04-21 21:12] LABS: POTASSIUM SERUM 5.3 MEQ/L (3.5-5.1)
[2017-04-21] MEDS ORDERED: CALCIUM GLUCONATE 1,000 MG in D5W MINI-BAG PLUS 100 ML IV ONE (22:00)
[2017-04-22] VITALS (47 sets, daily range): BP systolic 95–181; BP diastolic 50–83
--- NOTE | 2017-04-22 00:06 | RO ---
DATE OF PROCEDURE: 04/21/2017 PREPROCEDURE DIAGNOSIS: Hypotension. POSTPROCEDURE: DIAGNOSIS: Hypotension. PROCEDURE: Left triple lumen venous internal jugular (IJ) catheter. SURGEON: Dr. Taye Huntley RADIOLOGIC TECHNICIAN: None. ANESTHESIA: 1% lidocaine. DESCRIPTION OF PROCEDURE: After informed consent was obtained and placed in the chart, the patient was placed in the supine position. The left IJ was prepped with sterile precautions, chlorhexidine and full sterile barrier precautions. The IJ was flat with inspiration; therefore, the patient was placed in Trendelenburg. Ultrasound was used to guide instillation of the 1% lidocaine subcutaneously. After adequate anesthetization of the skin, the RaSylantroson syringe was passed into the left IJ on the first pass. There was return of venous blood flow, although minimal. Wire was fed through the needle and the needle was removed. Nima in the skin was made. The triple lumen was then placed via modified Seldinger technique. All three ports returned venous blood flow and flushed easily. The line was sutured in at 16 cm. A sterile impregnated dressing was placed over the site. Postprocedure chest x-ray is pending. No observed complications.
[2017-04-22] MEDS ORDERED: NS 1,000 ML IV ONE ×2 (00:20→01:30)
[2017-04-22] MEDS ORDERED: HEPARIN SOD (PORCINE) 5000 UNITS/ML VIAL As Ordered ONE (01:13)
[2017-04-22] MEDS ORDERED: HEPARIN 1,000 UNITS/ML 10ML VIAL (FOR RADIOLOGY& DIALYSIS ONLY) IV ONE ×2 (01:45)
[2017-04-22 02:08] LABS: MEAN CORPUSCULAR HEMOGLOBIN 30.2 pg (27.0-33.0); MEAN CORPUSCULAR HGB CONC 32.9 g/dl (32.0-36.5); MEAN CORPUSCULAR VOLUME 91.8 fl (80.0-96.0); RED CELL DISTRIBUTION WIDTH 15.3 % (11.5-14.5); WHITE BLOOD COUNT 8.7 K/mm3 (4.0-10.0)
[2017-04-22 02:17] LABS: INR 3.3
[2017-04-22 02:52] LABS: CREATININE FOR GFR 7.02 MG/DL (0.70-1.30); GLOMERULAR FILTRATION RATE 8.3 (>42)
[2017-04-22 02:55] LABS: POTASSIUM SERUM 5.2 MEQ/L (3.5-5.1)
[2017-04-22] MEDS ORDERED: CALCIUM GLUCONATE 1,000 MG in D5W MINI-BAG PLUS 100 ML IV ONE (03:15)
--- NOTE | 2017-04-22 05:26 | CCN ---
DATE: 04/21/2017 I was consulted for hypotension and hypovolemic shock. Critical care time was one hour, this excludes procedures. Patient is lying in bed complaining of feeling lightheaded. He states his abdominal discomfort is better from his liver hematoma. Apparently the patient was admitted on 04/20. He has been having progressive hypotension and poor urine output, impending renal failure. Nephrology is planning to start continuous renal replacement therapy (CRRT) in the morning. I placed the left internal jugular (IJ) for his hypotension and potential need for vasopressor therapy and central venous pressure (CVP) monitoring. His CVP was extremely low measuring one. This matched my ultrasound results of near-collapse of the blood vessel. After a liter of fluid, CVP is up to 2-3. Additional fluid was has been administered. PHYSICAL EXAMINATION: VITAL SIGNS: Temperature is 99.3, pulse is 104, respiratory rate 18, oxygen saturation is 95% on two liters, and blood pressure is 101/53 with a mean arterial pressure (MAP) of 69. GENERAL: The patient is awake, alert and oriented. Affect and mood are appropriate. Nutrition and hygiene are good. HEENT: Oral and nasal mucosa pink and moist without lesions. Oropharynx without erythema or exudate. Pupils are equal and reactive to light. NECK: Supple. No tracheal deviation. He has a left IJ and a right IJ dialysis catheter. CARDIAC: Midline sternotomy scar. Regular S1, S2 without audible murmur, rub or gallop. He does have mechanical heart sounds. PULMONARY: Clear to auscultation without rales, rhonchi or wheezes. No accessory muscle use. ABDOMEN: Distended, tympanic. Some subcutaneous bruising. Right upper quadrant no longer tender. No significant rebound or guarding. EXTREMITIES: No peripheral edema. No clubbing or cyanosis. MUSCULOSKELETAL: Good muscle tone. He is moving all extremities appropriately. PSYCHIATRIC: Normal mood and affect. Speech is normal, not tangential. NEUROLOGIC: No unilateral weakness. No evidence of tremor. Pupils are equal and reactive to light. LABORATORY DATA: Laboratory evaluation shows a most recent hemoglobin at 10.3 at 2030. Chemistry panel at 2030 shows hyponatremia with a sodium 135, potassium 5.3, chloride 101, bicarb of 21, BUN of 58, creatinine of 6.68. Calcium is 7.5. AST is 3515, ALT is 2081, alk phos is 74. Total bilirubin is 0.9, albumin is 2.7. INR is 1.47. IMAGING: Chest x-ray shows appropriate position of both the right IJ dialysis catheter in the left triple lumen venous catheter. Of note on chest x-ray, the right hemidiaphragm is elevated. Abdominal CT was reviewed and shows perihepatic hematoma with largely subcapsular minimal hemoperitoneum, some hematoma in the omental fat. IMPRESSION: 1. Hypovolemic shock with low central venous pressure. I have given additional fluid boluses due to how severely low his CVP is due to his hypovolemia. We will monitor for the need for repeated red blood cell transfusion. Calcium appears to be adequate at this point in time. The patient remains critically ill and guarded due to the severity of his hypovolemia. 2. Renal failure. Dialysis catheter placed, anticipate dialysis on the next 24 hours. 3. Deep venous thrombosis (DVT) prophylaxis: Thromboembolism deterrent stockings (TEDs) and Kevin's. 4. Mechanical aortic valve. Per cardiology, okay to be off anticoagulation for 48 hours due to his hematoma. Will closely monitor for signs/symptoms of stroke. 5. Hyponatremia likely secondary to volume depletion. 6. Hyperkalemia from renal failure. 7. Leukocytosis. 8. Acute liver injury. 9. Hypoalbuminemia. Will start feeding as soon as cleared by surgery. Prognosis is guarded. The patient remains critical due to the severity of his hypotension and renal failure. MTDD
--- NOTE | 2017-04-22 05:31 | RO ---
DATE OF PROCEDURE: 04/22/2017 PREOPERATIVE DIAGNOSIS: Acute renal failure. POSTOPERATIVE DIAGNOSIS: Acute renal failure. PROCEDURE: Right internal jugular (IJ) dialysis catheter placement. SURGEON: Taye Huntley DO SURVEY PARTY CHIEF: None ANESTHESIA: 1% lidocaine REQUESTING PHYSICIAN: Dr. Joceline Guerrero Consent was written, obtained and placed in the chart. DESCRIPTION OF PROCEDURE: Time-out was performed with two patient identifiers identifying correct site, correct procedure. Right IJ was prepped in a sterile manner with chlorhexidine and full sterile barrier precautions. The right IJ was identified on ultrasound and 1% lidocaine was used to anesthetize the skin. [place] syringe was introduced into the right IJ. There was return of venous blood flow. Wire was fed through the needle and the dialysis catheter was placed via modified Seldinger technique. Both ports returned venous blood flow. Both were flushed initially with saline. This was followed by 1.0 mL of heparin in the venous port and 1.5 in the red port. There was no observed complications. Postprocedure chest x-ray is pending. This was sutured in at 15 cm. Sterile impregnated dressing was placed over the site. [facility]
[2017-04-22] MEDS ORDERED: CHLORASEPTIC SPRAY MT ONE (08:00)
--- NOTE | 2017-04-22 08:17 | REP ---
Portable chest x-ray: Sitting AP view. History: Dialysis catheter. Line placement. Comparison study: 12:03 a.m. film on this same date. Findings: EKG monitoring electrodes are seen. A nasogastric tube is noted coursing into the upper stomach. Prior sternotomy wires are seen. A right internal jugular venous catheter is seen terminating in the expected location of the superior vena cava. There is blunting and a little pleural thickening along the right lower lateral chest wall unchanged from the prior study. Increased markings with air bronchograms are seen in the right base. Right hemidiaphragm remains somewhat elevated unchanged. No evidence of pneumothorax seen. Signed by Twan Mcleod MD 04/22/2017 09:54 A
[2017-04-22] MEDS: SENOKOT S TAB PO SCH ×2 (08:32→20:51)
[2017-04-22] MEDS: PANTOPRAZOLE 40MG INJ (PROTONIX) (C9113) IV SCH (08:32)
[2017-04-22 09:03] LABS: CALCIUM LEVEL 7.1 MG/DL (8.8-10.2); CREATININE FOR GFR 7.45 MG/DL (0.70-1.30); GLOMERULAR FILTRATION RATE 7.7 (>42)
--- NOTE | 2017-04-22 09:08 | REP ---
PORTABLE CHEST X-RAY: Sitting AP view. HISTORY: Post line placement. Comparison study April 20, 2017. FINDINGS: EKG monitoring electrodes are seen. An NG tube is noted coiled within the gastric fundus. A left internal jugular central venous line is seen with its tip at the junction of the superior vena cava and brachiocephalic veins region. There is slight blunting of the right lateral pleural angle unchanged. Right hemidiaphragm is somewhat elevated. There are increased markings in the right base medially with one or two air bronchograms. This is similar to the prior study. There is no evidence of pneumothorax. IMPRESSION: Left IJ line at the superior vena cava brachiocephalic vein junction. No evidence of pneumothorax seen. Increased density right base with air bronchograms may reflect atelectasis as on April 20, 2017. Signed by Twan Mcleod MD 04/22/2017 09:55 A
[2017-04-22 09:19] LABS: POTASSIUM SERUM 5.3 MEQ/L (3.5-5.1)
--- NOTE | 2017-04-22 10:33 | CCN ---
DATE: 04/22/2017 This morning Mr. Alexis blood pressure is up to 145/70. Central venous pressure (CVP) is 5. He does have hypoxia and exertional dyspnea. He is in acute renal failure. Because of his improvement in his blood pressure it was determined to hemodialysis rather than CONTRACT GRAPHIC DESIGNER. He remains in acute renal failure with no to little urine output. He was anemic this morning, was transfused 1 unit. His hemoglobin is now 10. International normalized ratio (INR) was elevated at 3.3. His primary team has ordered fresh frozen plasma (FFP). PHYSICAL EXAMINATION: Temperature is 98.7, pulse is 101, respiratory rate is 18, blood pressure is 135/67, oxygen saturation IS 94% on 3.0 liters. General: Patient is awake, alert and oriented. Affect and mood are appropriate. Nutrition and hygiene are good. He is currently getting bedside hemodialysis. HEENT: Sclerae are clear and anicteric. Pupils are reactive to light. Mucous membranes are moist. Tongue is midline. Cardiac: Mechanical heart sounds without audible murmur, rub or gallop. He is currently in sinus tachycardia. No significant peripheral edema. Pulmonary: Clear to auscultation without rales, rhonchi or wheezes. No dullness to percussion. Abdomen: Soft, nontender, nondistended. No hepatosplenomegaly. No masses or herniations. Extremities: No cyanosis, clubbing or edema. Neurologic: No unilateral weakness, tremor or myoclonus. Musculoskeletal: Well-developed, without any joint effusions. LABORATORY EVALUATION: Shows a white blood cell count of 8.7, hemoglobin 8.4, initially improved to 10, and platelet count of 167. Chemistry panel from this morning shows sodium 138, potassium 5.3, chloride 103, bicarbonate of 20, BUN of 73, creatinine of 7.45, calcium of 7.1. IMPRESSION: 1. Hypoxia, likely secondary to volume status and the need for volume replacement with some pulmonary edema. Will monitor oxygen saturations for respiratory failure. Hemodialysis should help with his volume status. His volume status is quite tenuous as CVP is only 5 at this point in time. 2. Acute renal failure on hemodialysis today. Will continue to monitor for hyperkalemia and acidemia. 3. Diabetes. Fingersticks show adequate control on sliding scale insulin. 4. Aortic mechanical valve. Will require reinitiation of anticoagulation tomorrow as long as there is no signs of acute bleeding. The patient remains critically ill. Prognosis is guarded given his mechanical valve need for anticoagulation and his recent hypovolemic shock from liver hematoma. He will be closely monitored in the intensive care unit (ICU).
[2017-04-22] MEDS ORDERED: HEPARIN 1,000 UNITS/ML 10ML VIAL (FOR RADIOLOGY& DIALYSIS ONLY) XX ONE (12:00)
[2017-04-22] MEDS: CHLORASEPTIC SPRAY MT PRN ×3 (12:53→17:59)
[2017-04-22 12:55] LABS: ALBUMIN 2.9 GM/DL (3.2-5.2); ALBUMIN/GLOBULIN RATIO 1.16 (1.00-1.93); BILIRUBIN,DIRECT 0.4 MG/DL (0.0-0.2); BILIRUBIN,TOTAL 0.9 MG/DL (0.2-1.0); TOTAL PROTEIN 5.4 GM/DL (6.4-8.2)
[2017-04-22] MEDS ORDERED: SENN1TAB2 PO (13:27)
[2017-04-22] MEDS ORDERED: ONDA4VLL IV (13:27)
[2017-04-22] MEDS ORDERED: OXYCO5TA PO (13:27)
[2017-04-22] MEDS ORDERED: PROT40IN4 IV (13:27)
[2017-04-22] MEDS ORDERED: CHLORSP MT (13:27)
[2017-04-22] MEDS ORDERED: MORP4SYR IV (13:27)
[2017-04-22] MEDS ORDERED: INSUHUMDS SC (13:27)
[2017-04-22 16:03] LABS: ALBUMIN 2.8 GM/DL (3.2-5.2); ALBUMIN/GLOBULIN RATIO 1.08 (1.00-1.93); BILIRUBIN,DIRECT 0.6 MG/DL (0.0-0.2); BILIRUBIN,TOTAL 1.3 MG/DL (0.2-1.0); TOTAL PROTEIN 5.4 GM/DL (6.4-8.2)
[2017-04-22] MEDS ORDERED: FAT EMULSION IV 20% 500 ML IV SCH (18:00)
[2017-04-22] MEDS ORDERED: AMINO AC/ELECTROLYTE/DEX/CALC 2,000 ML IV SCH (18:00)
[2017-04-22] MEDS: HumaLOG INSULIN (NovoLOG) PER UNIT SC SCH ×2 (18:33→23:29)
[2017-04-22] MEDS ORDERED: VANCOMYCIN HCL 1,000 MG, VIAL MATE ADAPTER 1 EACH in D5W 250 ML IV ONE (18:45)
[2017-04-22 19:39] LABS: INR 1.94
[2017-04-22] MEDS: MEROPENEM INJ 1 GM in D5W MINI-BAG PLUS 100 ML IV SCH (20:51)
--- NOTE | 2017-04-22 23:46 | PHACANCOPD ---
PHARMACY VANCOMYCIN DOSING Pt Demographics Demographics Patient Age:71 , Weight:100.000 , Gender: male Events Past 24 Hours Events Past 24 Hours: YES: Dialysis Vancomycin Vancomycin Target Ranges: 15-20 mcg/ml Vancomycin Load Y/N: No Load Dose Date Time Vancomycin Load Dose: Date: Time: Vancomycin Dose Date: 04/22/17. Current Vancomycin Dose: [1GM x1 DOSE] Intermittent Dosing?: Yes Labs Labs Laboratory Tests 04/22/17 01:56 Red Blood Count 2.76 L, Mean Corpuscular Volume 91.8, Mean Corpuscular Hemoglobin 30.2, Mean Corpuscular Hemoglobin Concent 32.9, Red Cell Distribution Width 15.3 H, Calcium Level 7.0 L Micro Microbiology 04/22/17 Blood Culture, Received Pending 04/22/17 Blood Culture, Received Pending 04/20/17 Blood Culture - Preliminary, Resulted No Growth after 48 hours. All Specime... 04/20/17 Blood Culture - Preliminary, Resulted No Growth after 48 hours. All Specime... 04/20/17 Urine Culture - Final, Complete Creatinine Clearance Date:04/22/17. Creatinine Clearance: [0 ml/min]. Pending Labs VANCO RANDOM IN THE AM 04/23/17 Assessment and Plan Maintaining Current Dose?: Yes Reason for dose change: Other Pharmacist Note Pharmacist Note Date: 04/22/17. Pharm.D. note: 71YO MALE, 100KG, SCR AT 7.45 mcg/ml THIS MORNING PRIOR TO HD (per PN). HIS VANCO WAS INITIATED AT A STANDARD 1GM DOSE POST-HD FOLLOWED BY DAILY DOSING PER HIS RANDOM LEVELS. MEROPENEM WAS ALSO INITIATED AT A REDUCED FREQUENCY WITH THE PRIMARY DOSE GIVEN POST-HD. [facility] Apr 22, 2017 23:46
[2017-04-23] VITALS (20 sets, daily range): BP systolic 122–194; BP diastolic 60–93
[2017-04-23] MEDS ORDERED: CALCIUM CARBONATE 500 MG CHEW U/D PO PRN (02:45)
[2017-04-23] MEDS ORDERED: FAMOTIDINE 20 MG TAB PO SCH (04:45)
[2017-04-23] MEDS: PANTOPRAZOLE 40MG INJ (PROTONIX) (C9113) IV SCH ×3 (04:58→21:57)
[2017-04-23 05:56] LABS: ALBUMIN 2.6 GM/DL (3.2-5.2); BILIRUBIN,TOTAL 1.3 MG/DL (0.2-1.0); CALCIUM LEVEL 6.7 MG/DL (8.8-10.2); CREATININE FOR GFR 7.17 MG/DL (0.70-1.30); GLOMERULAR FILTRATION RATE 8.1 (>42); POTASSIUM SERUM 4.5 MEQ/L (3.5-5.1)
[2017-04-23 06:01] LABS: ALBUMIN/GLOBULIN RATIO 0.76 (1.00-1.93)
--- NOTE | 2017-04-23 06:40 | IPN ---
DATE: 04/22/2017 SUBJECTIVE: Patient seen and examined at the bedside. Chart has been reviewed. The patient continues to be oliguric, with less than 500 out since midnight. He complains this morning of increasing abdominal distention; discomfort is the same with no change. Denies any chest pain, pressure, tightness, lightheadedness or dizziness. Also complains of sore throat. No dysphagia or odynophagia. Afebrile overnight. No nausea or vomiting. OBJECTIVE: VITAL SIGNS: Temperature 98.7, pulse 101, respiratory rate 18, blood pressure 135/67, 94% on three liters nasal cannula. GENERAL: The patient is awake, alert, and oriented to person, place and time. Answering questions appropriately. HEENT: No jaundice or icterus. Pupils are round and reactive. Extraocular muscles are intact. No oral thrush. NECK: No cervical lymphadenopathy or thyromegaly. No jugular venous distention. LUNGS: Diminished. HEART: S1, S2, sinus tachycardia. ABDOMEN: Distended, tender in the right upper quadrant. No rebound or guarding. Positive bowel sounds. EXTREMITIES: Positive pitting edema bilaterally. LABORATORY DATA: White count 8.7, hemoglobin 8.4, hematocrit 25. Recheck hemoglobin and hematocrit are 10 and 29. Platelet count of 167. Sodium 138, potassium 5.2, chloride 102, bicarbonate 20, BUN 73, creatinine 7.45 , glucose of 126. INR of 3.30. MICROBIOLOGY: Urine culture 04/20, no growth of clinical significance. Hepatitis serology is negative. IMAGING: Chest x-ray: Nasogastric tube in the upper stomach. Prior sternotomy. Right internal jugular (IJ). Blunting and a little pleural thickening along the right lower lateral chest. Increased air bronchograms at the right base. No pneumothorax. CT abdomen and pelvis imaging study 04/20: Very large, new perihepatic hematoma, largely subcapsular but with some hemoperitoneum. Small component of hematoma in the omental fat, at its largest, the perihepatic hematoma displays dimensions of 16.8 x 6.0 x 17.9 cm craniocaudal. ASSESSMENT AND PLAN: This is a 71-year-old male with history of aortic valve replacement in November 2006, coronary artery disease (CAD), coronary artery bypass graft (CABG), stenting, Cedillo's esophagus, hypertension, solitary pulmonary nodule, chronic kidney disease stage III, baseline of 1.1, macular degeneration, reflux, colonic polyps, varicosities, atherosclerotic disease, urinary stones, ocular migraines, admitted under surgical services due to complains of increasing abdominal pain, status post laparoscopic cholecystostomy, cholecystectomy on 04/18/2017. The patient was found to have a large, subcapsular perihepatic hematoma measuring 16.8 x 6 x 17.9 cm, admitted due to severe abdominal pain. The patient's hemoglobin has dropped. He has been transfused four units of leukocytes to reduce red blood cells (RBCs), was found to have acute on chronic renal failure with baseline creatinine of 1.1, admitting creatinine of 3.5, most likely secondary to acute tubular injury, acute tubular necrosis from recent hypotensive episode with readings as low as 70 to 80 systolic from blood loss anemia. The patient now continues to have metabolic acidosis, hyperkalemia, fluid overload, and is requiring hemodialysis. IMPRESSION: 1. Perihepatic hematoma, very large with very large subcapsular hematoma measuring 16.8 cm anterior posterior, 6 cm medial to lateral, and 17.9 cm craniocaudal, with some hemoperitoneum. The patient at this time is on full supportive care with fresh frozen plasma (FFP) due to shock liver, and is currently being given fresh frozen plasma for international normalized ratio (INR) of 3.30 with liver function tests in the thousands with normal bilirubin level. Hepatitis serology is negative. Hemoglobin and hematocrit (H and H) had dropped to 8.4 with questionable hemodilution, with repeat hemoglobin and hematocrit of 10 and 29, appears to be stable from 10.3 and 30.7 yesterday. Anticoagulation has been held due to significant hematoma despite risk of emboli from mechanical aortic valve. No surgical intervention. Continue with conservative management for now. 2. Shock liver , hypovolemic shock from continued use of nitrates and ARB as well as acute blood loss anemia from liver hematoma. Systolic pressure was 70-80 on 04/20/2017, and 04/21/2017. The patient's blood pressure is significantlyimproved. However, significant hypotensive episodes has caused his shock liver with severe transaminitis. Supportive care for now. Hepatitis serology isnegative. Monitor patient's acetaminophen limit, acetaminophen to less than 1 gram daily. Concerning for hepatic failure with coagulopathy with INR increase to 3.3, ammonia retention, and increased biliribin. Per Dr. Alegre, [facility] at [place], [place], patient is not a liver transplant candidate due to multiorgan failure with renal failure requiring hemodialysis, age, and multiple co-morbid conditions. He recommends supportive care with antibiotics if febrile, FFP and vitamin K for coagulopathy to stabilize hematoma, RBC transfusion for anemia, and platelet transfusion if thrombocytopenia occurs. 3. Acute tubular necrosis with acute metabolic acidosis, hyperkalemia, and fluid overload. The patient is oliguric and is requiring hemodialysis. Defer to nephrology to arrange for hemodialysis needs. The patient's angiotensin II receptor brittany (ARB) has been discontinued. Will start on total parenteral nutrition (TPN) today. Defer to nephrology for fluid balance. 4. Acute Blood loss anemia secondary to post-op hematoma and lovenox. The patient's hemoglobin and hematocrit appear to be stable; therefore, we will hold off on repeat blood transfusion. Monitor for symptoms and monitor for worsening abdominal pain. 5. History of mechanical aortic valve. Per cardiology, Dr. Hawkins, off anticoagulation due to significant hematoma until blood loss anemia resolves. This has been discussed with the patient regarding increased risk of cerebrovascular accident (CVA) and embolic phenomena. Once h&h remains stable with no coagulopathy and improved liver enzymes, may re-start heparin iv gtt to monitor for recurrent bleeding. 6. Hypotension secondary to continued use of nitrates and ARB with severe blood loss anemia with pericapsular hematoma, resolved. The patient's blood pressure is significantly improved. No signs of infection. 7. Hypoalbuminemia. Nutrition consult and TPN needs. 8. Deep venous thrombosis (DVT) prophylaxis. No anticoagulation secondary hematoma. Thromboembolism deterrent stockings (TEDs) and sequentials for now. MTDD
[2017-04-23] MEDS: HumaLOG INSULIN (NovoLOG) PER UNIT SC SCH ×3 (07:03→17:53)
[2017-04-23] MEDS ORDERED: LACTULOSE 20 GM/30 ML SYRUP UD PO ONE (07:15)
[2017-04-23 07:23] LABS: BASO % 0.2 % (0.0-1.0); EOS # 0.2 K/mm3 (0.0-0.50); EOS % 1.5 % (0.0-3.0); INR 1.97; LARGE UNSTAINED CELL # 0.1 K/mm3 (0.0-0.4); LARGE UNSTAINED CELL % 0.7 % (0.0-4.0); LYMPH # 0.5 K/mm3 (1.5-4.5); LYMPH % 4.1 % (24.0-44.0); MEAN CORPUSCULAR HEMOGLOBIN 32.2 pg (27.0-33.0); MEAN CORPUSCULAR HGB CONC 35.2 g/dl (32.0-36.5); MEAN CORPUSCULAR VOLUME 91.4 fl (80.0-96.0); MONO # 0.4 K/mm3 (0.0-0.8); MONO % 3.9 % (0.0-5.0); NEUTROPHILS % 89.6 % (36.0-66.0); PLATELET COUNT, AUTOMATED 164 k/mm3 (150-450); RED CELL DISTRIBUTION WIDTH 14.4 % (11.5-14.5); WHITE BLOOD COUNT 11.1 K/mm3 (4.0-10.0)
[2017-04-23] MEDS ORDERED: PHYTONADIONE 5 MG TAB PO ONE (08:00)
[2017-04-23] MEDS: SENOKOT S TAB PO SCH ×2 (08:11→22:05)
[2017-04-23] MEDS: SUCRALFATE SUSP 1GM/10ML UD PO SCH ×3 (08:43→17:31)
--- NOTE | 2017-04-23 08:58 | REP ---
PORTABLE CHEST X-RAY: Single view. HISTORY: Shortness of breath and fever. Comparison study April 22, 2017. FINDINGS: A right internal jugular central line terminates in the expected location of the superior vena cava. EKG monitoring electrodes overlie the chest. Median sternotomy wires are seen and mediastinal clips are noted. There is elevation right hemidiaphragm and some blunting of the right pleural angle with pleural thickening is again seen. There is discoid atelectasis in the left base and one or two air bronchograms are seen just above the elevated right hemidiaphragm in the right base medially. No new infiltrate is seen. Signed by Twan Mcleod MD 04/23/2017 03:17 P
--- NOTE | 2017-04-23 09:49 | CCN ---
DATE OF SERVICE: 04/23/2017 Mr. Qureshi is a 71-year-old male who has a subcapsular hematoma. He has acute liver injury with hyperammonemia. Anticoagulation has been held due to his life-threatening hemorrhage. He is experiencing some diaphragmatic irritation with restriction of the lung. He has been out of bed to chair today. His plans are to receive dialysis again today for his renal failure. He is hypocalcemic. He has had no symptoms of the hyperammonemia. His thought process is clear. PHYSICAL EXAMINATION: Pulse is 99, blood pressure is 159/76, main arterial pressure is 103, central venous pressure (CVP) is 8, respiratory rate is 24, oxygen saturation is 96% on 4 liters. Temperature is 99.2. General: Awake and alert and oriented. Minimally tachypneic without accessory muscle use. HEENT: Sclerae clear and anicteric. Pupils are 2-3 mm but reactive to light. Mucous membranes are moist. Tongue is midline. Oropharynx without erythema or exudate. Neck is supple. No tracheal deviation. Right dialysis catheter is in place without surrounding erythema. Left internal jugular (IJ) is in place without surrounding erythema. Cardiac: Regular S1, S2, sharp mechanical click. No rub or gallop. No significant systemic edema. Pulmonary: Decreased breath sounds at the right base. No rales, rhonchi, or wheezes. Otherwise clear to auscultation. Abdomen is distended. There are positive bowel sounds. No mass. The liver is difficult to palpate, and deep palpation was not performed to avoid injury. Extremities: No cyanosis, clubbing, or edema. Musculoskeletal: Normal muscle tone. No evidence of joint effusion or fracture. LABORATORY EVALUATION: Sodium is 135, potassium is 4.5, chloride is 98, bicarbonate is 25, BUN is 65, creatinine is 7.17, calcium is 6.7. White blood cell count is 11.1, glucose is 171, hemoglobin is 10.2, hematocrit is 28.8, platelet count is 164, 90% neutrophilia. INR is 1.97. Total bilirubin (T Bili) is 1.3, AST is down to 4430, ALT is down to 3467, alkaline phosphatase is 211, total bilirubin (T Bili) 1.3, albumin 2.6. Chest x-ray shows right hemidiaphragm elevation. No pulmonary infiltrate. IMPRESSION: 1. Acute liver injury from perihepatic hematoma and hypovolemic shock. The patient's blood pressure actually on the hypertensive side now. AST and ALT are climbing down. International normalized ratio (INR) is now down to 1.9. Total bilirubin bili is 1.3. He still remains critical and needs to be monitored closely for bleeding risk. Will recheck an INR at 11:30. 2. Hyperammonemia, being treated with lactulose. Will continue to monitor ammonia level. 3. Hypocalcemia. I have given 1 gram of calcium gluconate. Nephrology plans on changing the calcium concentration in the bath. 4. Fever. The patient currently on empiric antibiotics, meropenem and vancomycin. 5. Hyperglycemia. Glucose slightly elevated at 171. Would recommend adding insulin to the total parenteral nutrition (TPN). 6. Mild elevation in troponin, likely secondary to his acute clinical state. I do not believe this is secondary to ischemia. 7. Mechanical aortic valve. He has a good mechanical click without evidence of embolic disease. He is at much higher risk for bleeding than he is for thrombosis at this point in time. Will reinitiate anticoagulation when his risk of bleeding is decreased. 8. Hyponatremia, likely from a small amount of volume overload. 9. Hypoalbuminemia, replaced via TPN. 10. Gastrointestinal (GI) prophylaxis, on Protonix. 11. Deep venous thrombosis (DVT) prophylaxis, thromboembolic deterrents (TEDs) and Kend[place]. The patient remains guarded. Clinical condition remains guarded.
[2017-04-23] MEDS ORDERED: VANCOMYCIN HCL 1,000 MG, VIAL MATE ADAPTER 1 EACH in D5W 250 ML IV SCH (10:00)
[2017-04-23] MEDS ORDERED: CALCIUM GLUCONATE 1,000 MG in D5W MINI-BAG PLUS 100 ML IV ONE (10:00)
[2017-04-23] MEDS ORDERED: VANCOMYCIN INTERMITTENT/PULSE DOSING BY CLINICAL PHARMACIST PER DOSING PROTOCOL XX SCH (10:30)
--- NOTE | 2017-04-23 10:33 | PHACANCOPD ---
PHARMACY VANCOMYCIN DOSING Pt Demographics Demographics Patient Age:71 , Weight:104.200 , Gender: male Vancomycin Vancomycin Target Ranges: 15-20 mcg/ml Vancomycin Load Y/N: No Load Dose Date Time Vancomycin Load Dose: Date: Time: Vancomycin Dose Date: 04/22/17. Current Vancomycin Dose: [1GM x1 DOSE] Intermittent Dosing?: Yes Labs Micro Microbiology 04/22/17 Blood Culture, Received Pending 04/22/17 Blood Culture, Received Pending 04/20/17 Blood Culture - Preliminary, Resulted No Growth after 48 hours. All Specime... 04/20/17 Blood Culture - Preliminary, Resulted No Growth after 72 hours. All specime... 04/20/17 Urine Culture - Final, Complete Creatinine Clearance Date:04/22/17. Creatinine Clearance: [0 ml/min]. Pending Labs VANCO RANDOM IN THE AM 04/23/17 Assessment and Plan Maintaining Current Dose?: No Reason for dose change: Other Pharmacist Note Pharmacist Note 04/23/17: Today is Day#2 of meropenem/vancomycin therapy for empiric coverage. Today's random level resulted at 12.5mcg/ml. The patient is scheduled for hemodialysis again today, and so I will increase today's vancomycin dose to 1500mg x 1 dose after HD. Another random vancomycin level will be scheduled to be drawn with tomorrow's morning labs, and we will continue intermittent dosing based on these random levels. Date: 04/22/17. Pharm.D. note: 71YO MALE, 100KG, SCR AT 7.45 mcg/ml THIS MORNING PRIOR TO HD (per PN). HIS VANCO WAS INITIATED AT A STANDARD 1GM DOSE POST-HD FOLLOWED BY DAILY DOSING PER HIS RANDOM LEVELS. MEROPENEM WAS ALSO INITIATED AT A REDUCED FREQUENCY WITH THE PRIMARY DOSE GIVEN POST-HD. [facility]ARM[facility] Apr 23, 2017 10:33
[2017-04-23] MEDS: BISACODYL 10 MG SUPP PR PRN (10:55)
[2017-04-23] MEDS ORDERED: HEPARIN 1,000 UNITS/ML 10ML VIAL (FOR RADIOLOGY& DIALYSIS ONLY) XX ONE (11:00)
[2017-04-23] MEDS: DICYCLOMINE 10 MG CAP PO SCH ×2 (12:00→17:30)
[2017-04-23] MEDS: CHLORASEPTIC SPRAY MT PRN (12:10)
[2017-04-23 12:45] LABS: INR 1.92
[2017-04-23] MEDS: MORPHINE 4 MG/ML 1ML SYRINGE IV PRN ×2 (14:08→18:22)
--- NOTE | 2017-04-23 15:12 | IPN ---
DATE: 04/22/2017 CRITICAL CARE PROGRESS NOTE SUBJECTIVE: The patient is seen this morning in the intensive care unit. Last night, I spoke with the progressive care unit nurse regarding the patient's borderline blood pressure despite vigorous IV fluids. A decision was made to transfer the patient to the intensive care unit for closer monitoring. Dr. Huntley was kind enough to assist in the placement of central line and dialysis access for the patient. His potassium was elevated overnight. He received further intravenous fluid boluses. His CVP was initially 1 with blood pressures 90s over 50s. After two further liters of normal saline, his CVP improved to 5 and this morning when I saw him, his systolic had improved to 130s over 70s. The patient has now received four units of packed red blood cells in total. This morning, he was awake, alert and tolerating clear liquids. He denied any lightheadedness or dizziness at rest. However, he did note shortness of breath with exertion. I had a discussion with the patient, his and his children regarding his renal failure. They consented for dialysis initiation. He remains in acute renal failure, oligoanuric. REVIEW OF SYSTEMS: Negative for headache, lightheadedness, dizziness, chest pain , palpitations. Positive for dyspnea on exertion, abdominal distention, abdominal pain. Positive for urinary catheter. Negative for lower extremity swelling, nausea, vomiting, diarrhea. Negative for visual changes, sore throat, cough. Remainder of review of systems is negative. VITAL SIGNS: Temperature 99.2, pulse 99, respiratory rate 16, blood pressure 131/60, pulse oximetry 93% on 3 liters nasal cannula. GENERAL: Awake, alert, oriented, in no acute distress, seen in the intensive care unit. HEENT: Moist mucous membranes. Extraocular muscles intact. NECK: With central line and temporary dialysis catheter. CHEST: S1, S2, regular rate and rhythm. RESPIRATORY: Decreased breath sounds at the bases on 3 liters nasal cannula. Mild tachypnea. Respiratory rate 20 to 25. ABDOMEN: Distended, tympanic. Scattered ecchymosis. EXTREMITIES: No significant dependent edema or lower extremity edema. NEUROLOGIC: Awake, alert, oriented times three. PSYCHIATRIC: Appropriate mood and affect. GENITOURINARY: Clayton catheter in place with minimal urine. Patient was also seen again when hemodialysis was initiated. He was seen at the bedside tolerating hemodialysis with BFR 250cc/min INTAKE: 3775. URINE OUTPUT: 185 mL. WEIGHT ON THE BED SCALE: 100 kg, increased from 96.9 kg yesterday. MEDICATIONS: Reviewed by me. The patient was started on Clinimix. He was given 2 grams of calcium gluconate overnight while hyperkalemic. He was started on meropenem 1 gram IV every 24 hours. Vancomycin 1 gram IV once. The remainder of his medications are unchanged as compared to yesterday. LABORATORY: Hemoglobin 9.6, platelet count 167, INR 3.3, glucose 158, sodium 138, predialysis potassium 5.3, bicarbonate 20, creatinine 7.4, BUN 73, corrected calcium 8. LFTs continue to rise; AST 13,000, ALT 6500. Microbiology: Initial blood cultures from 04/20/2017 with no growth for 48 hours. Repeat blood cultures 04/22/2017 pending. Chest x-ray from 04/22/2017: Elevated right hemidiaphragm, blunting R base. No pneumothorax. ASSESSMENT AND PLAN: A 71-year-old male with a past medical history of mechanical aortic valve replacement, on Coumadin, status post laparoscopic cholecystectomy on 04/18/2017 with subsequent perihepatic hematoma and hemorrhagic shock with acute renal failure secondary to hemodynamically mediated tubular injury, acute tubular necrosis, superimposed on ARB dysautoregulation. 1. Oligoanuric acute tubular necrosis secondary to hemodynamically mediated tubular injury, tubular necrosis with superimposed ARB dysautoregulation. The patient was dialyzed this morning with a 2K milliequivalent bath for 2-1/2 hours with full measures taken to reduce the risk of dialysis dysequilibrium syndrome. His blood pressure tolerated hemodialysis with half kg ultrafiltration. He will likely require hemodialysis again tomorrow. The patient will be assessed daily for dialysis needs based on his electrolytes and respiratory status. His medication list was reviewed and no nephrotoxic medications found. His vancomycin random level will be checked daily. We will monitor for signs of renal recovery with interdialytic creatinine and for urine output to Clayton catheter. However, I do not expect to see rapid renal recovery. This is more likely a dense ATN. 2. Acute liver injury. The patient's liver function tests (LFTs) continue to rise. AST 13,000, ALT 6500. His international normalized ratio (INR) continues to rise as well; 3.3. There is likely a component of ischemic hepatitis contributing to his elevated transaminases along with the perihepatic hematoma. His statin was discontinued by myself while his liver function tests are markedly abnormal. 3. Hypovolemic shock with low central venous pressure. The patient's CVP has improved after further fluid boluses. He is now status post four units of packed red blood cells. His blood pressure has responded appropriately. He has not required pressor support. 4. Mechanical aortic valve. Anticoagulation has been on hold. The patient was dialyzed today without any heparin. 5. Hyperkalemia. Improved with dialysis initiation. The patient is critically ill and prognosis is guarded. Greater than 45 minutes was spent in the critical care of this patient exclusive of procedures. The plan of care was discussed with the on-call hospitalist, the basket sorter, Dr. Huntley, and with Dr. Guerra and the patient's and daughter at the bedside. EDWIN
[2017-04-23] MEDS: VANCOMYCIN HCL 1,000 MG, VIAL MATE ADAPTER 1 EACH in D5W 250 ML IV ONE ×2 (17:31→22:05)
[2017-04-23] MEDS ORDERED: AMINO AC/ELECTROLYTE/DEX/CALC 2,000 ML IV SCH (18:00)
[2017-04-23] MEDS ORDERED: FAT EMULSION IV 20% 500 ML IV SCH (18:00)
[2017-04-23] MEDS ORDERED: VANCOMYCIN HCL 500 MG in D5W MINI-BAG PLUS 100 ML IV ONE (19:00)
--- NOTE | 2017-04-23 21:55 | IPN ---
DATE: 04/23/2017 The patient is seen and examined at the bedside. Chart has been reviewed. Overnight, the patient had a maximum temperature (t-max) of 101.1. Due to increased risk of infection with multi organ failure, the patient was empirically treated with vancomycin times one dose and meropenem for broad spectrum anaerobic and gram-negative coverage. Chest x-ray shows increased markings with air bronchograms at the right base and unchanged right hemidiaphragm elevation. Blood cultures are pending. He remains oliguric with urine output of 88, gastric drainage was 1.6 liters. He continues to have increasing abdominal distention and discomfort but able to sit on the chair, increasing respiratory rate into 20 to 22. Blood pressures were maintained at 150 to 175. He denies any chest pressure or tightness, slight tachycardia at 98 to 103 with peak of about 120 last evening. Vital signs: Temperature 99.2 with a maximum temperature (t-max) of 101.1, pulse of 98 and sinus rhythm, respiratory rate 22, blood pressure 156/74, 91% on 4 liters nasal cannula. GENERAL: The patient is awake, alert, oriented times three. He is answering questions appropriately. Slight respiratory distress but no nasal flaring or tracheal deviation. No jugular venous distention. LUNGS: Diminished bilaterally but clear to auscultation. HEART: S1, S2. Sinus tachycardia. ABDOMEN: Distended. Obese. Tender in right upper quadrant. No masses or herniations. Hyperactive bowel sounds. EXTREMITIES: No pitting edema. LABORATORY DATA: White count is pending. Hemoglobin 10.4, hematocrit 27.7, previous hemoglobin of 9.4 and hematocrit 26.4. Sodium 135, potassium 4.5, chloride 98, bicarbonate 25, BUN 65, creatinine 7.17, glucose 171, calcium 6.7, total bilirubin 1.3, direct bilirubin 0.6, AST 4431, ALT 3467, alkaline phosphatase 211, ammonia 53. MICROBIOLOGY: 04/20/2017: Blood cultures no growth after 48 hours. 2016 urine culture with no growth of clinical significance. Two sets of blood cultures on 04/22/2017 pending. IMAGING STUDIES: Chest x-ray on 04/23/2017 pending. ASSESSMENT AND PLAN: This is a 71-year-old male with a history of mechanical aortic valve on chronic Coumadin, history of coronary artery disease, left bundle branch block, hypertension, nephrolithiasis, benign prostatic hyperplasia, chronic kidney disease stage III, baseline creatinine 1.1 to 1.3, history of anemia, reflux, solitary pulmonary nodule, status post laparoscopic cholecystectomy on 04/18/2017, was sent home with Lovenox for his mechanical aortic valve, developed increasing right upper quadrant abdominal pain one day post discharge on Friday, seen at [facility] emergency room and was given [place] and was discharged from the emergency room. The patient then complained of lightheadedness and dizziness, presented to [facility] and was found to be hypotensive with systolic pressure in the 70s, tachycardic, no fevers. The patient was using his losartan and isosorbide at home despite dizziness and lightheadedness. Evaluation included CT of the abdomen and pelvis due to complaints of right upper quadrant pain, which showed a large perihepatic hematoma measuring 16.8 cm x 6 cm medial to lateral by 17.9 cm cranial caudal with some adjacent small hematoma in the omental fat beneath the gallbladder fossa. Some hemoperitoneum in the pelvic reflections and blood tracking in the hepatic space and perihepatic space extending into pericolic gutter. Appears to be subcapsular in the right anterolateral and posterior aspect of the liver. The patient was admitted under surgical services. He initially had a hemoglobin of 13 and had decreased to 8.4 throughout his admission. He received leukocyte red blood cell transfusions, total of 4 units. He was found to be much more oliguric with hyperkalemia, metabolic acidosis, and increasing volume overload and required emergent hemodialysis. The patient's liver function tests appear to be consistent with shock liver with initial admission, AST of 76 [place] [address] with increasing bilirubin at 1.3. Ammonia level increased at 53. The patient is awaiting transfer to [facility] for a higher level of care, currently with a fever, maximum temperature (t-max) of 101.1 at 1610 hours on 04/22/2017. Due to increased risk of infection with decompensated liver failure, the patient was given one dose of vancomycin, as well as meropenem for gram-negative and anaerobic broad spectrum coverage. He has also been given supportive care with fresh frozen plasma for elevated INR of 3.3. CURRENT ISSUES: 1. acute hepatic failure with elevated bilirubin, ammonia, shock liver from severe hypotension and coagulopathy with INR of 3.3, acute tubular necrosis secondary to severe hypotension and ARB, dysauto regulation requiring emergent hemodialysis due to oliguria, hyperkalemia and metabolic acidosis, systemic inflammatory response syndrome (SIRS) with tachycardia at 119, fever of 101. The patient is currently receiving full supportive care per Dr. Alegre, liver transplant clinic md associate at [place], [place]. His recommendations will be to continue with full supportive care, vitamin K, fresh frozen plasma for coagulopathy, antibiotics for fevers, as the patient will be increased risk of infection with full hepatic failure, hemodialysis, blood transfusion for anemia and platelet transfusion if the patient develops severe thrombocytopenia with active bleeding. Still awaiting transfer from [facility]. 2. Acute renal failure secondary to acute tubular necrosis and dysauto regulation secondary to ARB, severe hypotension on admission causing shock liver. The patient is currently managed by Dr. Joceline Guerrero, experimental machinist, and has received emergent hemodialysis due to oliguria, metabolic acidosis, hyperkalemia. Systolic pressures have been adequate with 150 to 181 systolic. We will continue with hemodialysis, managed by Dr. Guerrero. 3. Acute blood loss anemia secondary to large subcapsular hematoma measuring 16 cm x 6 cm x 17 cm in the perihepatic region. The patient received a total of 4 units of leukocyte reduced wendie blood cell transfusion. Hemoglobin on admission was 13.6 with the lowest at 8.4, currently at 10.4. Full supportive care. For now, transfuse as needed with fresh frozen plasma if the patient remains coagulopathic and with packed red blood cell transfusion, leukocyte reduced. 4. Respiratory distress secondary to increasing abdominal distention, perihepatic hematoma, as well as fluid overload from renal failure. Management per nephrology for fluids. Removal via hemodialysis. Dr. Huntley has been consulted. The patient is still saturating 90 to 96% on 4 liters nasal cannula. We will repeat the chest x-ray today. The patient may need intubation for worsening respiratory distress, pleural effusion despite hemodialysis. 5. History of mechanical aortic valve. Anticoagulation has been held due to a large liver subcapsular hematoma. The patient is at increased risk of emboli and CVA. The patient has been made aware of the risk and unfortunately anticoagulation needs to be held until the patient is better stabilized. 6. Nutrition. The patient is currently on TPN. Shipping And Receiving Operator has been consulted. Managed by primary service. 7. History of coronary artery disease/coronary artery bypass graft (CABG). Complains of shortness of breath, most likely secondary to increasing abdominal distention. Check cardiac markers. Check BNP with worsening shortness of breath. 8. Gastroesophageal reflux disease (GERD). On intravenous Protonix. 9. Hyperlipidemia. Statins are held due to liver failure. 10. Shock liver with liver failure with coagulopathy, elevated ammonia, hyperbilirubinemia and severe transaminitis. The patient has received full supportive care with fresh frozen plasma, vitamin K. No significant ascites found on previous CT scan to worry about spontaneous bacterial peritonitis. On empiric antibiotics with one dose of vancomycin and meropenem due to fever of 101.1. 11. Chronic left bundle branch block. 12. Diet. TPN managed by licensing director and primary service. 13. Deep vein thrombosis (DVT) prophylaxis. Due to blood loss anemia from the liver subcapsular hematoma, the patient's blood thinners have been discontinued and due to significant coagulopathy, currently on Venodyne and thromboembolic compression stockings (TEDS). DISPOSITION: Still awaiting transfer to [facility]. As of 6: 15 a.m. this morning, there are no beds. MTDD
[2017-04-23] MEDS: MEROPENEM INJ 1 GM in D5W MINI-BAG PLUS 100 ML IV SCH (21:58)
[2017-04-23] MEDS: oxyCODONE 5MG TAB PO PRN (23:23)
[2017-04-24] VITALS (13 sets, daily range): BP systolic 121–165; BP diastolic 61–81
[2017-04-24] MEDS: SUCRALFATE SUSP 1GM/10ML UD PO SCH ×5 (00:14→23:16)
[2017-04-24] MEDS: DICYCLOMINE 10 MG CAP PO SCH ×5 (00:14→23:17)
[2017-04-24] MEDS: HumaLOG INSULIN (NovoLOG) PER UNIT SC SCH ×5 (00:16→23:19)
[2017-04-24] MEDS: MORPHINE 4 MG/ML 1ML SYRINGE IV PRN ×3 (03:54→23:17)
[2017-04-24 05:31] LABS: BASO % 0.2 % (0.0-1.0); EOS # 0.3 K/mm3 (0.0-0.50); EOS % 2.3 % (0.0-3.0); LARGE UNSTAINED CELL # 0.2 K/mm3 (0.0-0.4); LARGE UNSTAINED CELL % 2.1 % (0.0-4.0); LYMPH # 0.7 K/mm3 (1.5-4.5); LYMPH % 4.3 % (24.0-44.0); MEAN CORPUSCULAR HEMOGLOBIN 32.2 pg (27.0-33.0); MEAN CORPUSCULAR HGB CONC 35.9 g/dl (32.0-36.5); MEAN CORPUSCULAR VOLUME 89.7 fl (80.0-96.0); MONO # 0.8 K/mm3 (0.0-0.8); MONO % 6.6 % (0.0-5.0); NEUTROPHILS # 9.6 K/mm3 (1.8-7.7); NEUTROPHILS % 84.5 % (36.0-66.0); PLATELET COUNT, AUTOMATED 170 k/mm3 (150-450); RED CELL DISTRIBUTION WIDTH 14.6 % (11.5-14.5); WHITE BLOOD COUNT 11.4 K/mm3 (4.0-10.0)
[2017-04-24 05:33] LABS: INR 1.55
[2017-04-24 05:55] LABS: ALBUMIN 2.4 GM/DL (3.2-5.2); ALBUMIN/GLOBULIN RATIO 0.89 (1.00-1.93); BILIRUBIN,TOTAL 1.6 MG/DL (0.2-1.0); CALCIUM LEVEL 6.7 MG/DL (8.8-10.2); CREATININE FOR GFR 6.43 MG/DL (0.70-1.30); GLOMERULAR FILTRATION RATE 9.2 (>42); POTASSIUM SERUM 4.4 MEQ/L (3.5-5.1); TOTAL PROTEIN 5.1 GM/DL (6.4-8.2)
--- NOTE | 2017-04-24 08:43 | REP ---
CT ABDOMEN AND PELVIS WITHOUT IV OR ORAL CONTRAST: HISTORY: Abdominal distension worsening anemia, history of subcapsular hematoma. Comparison CT study April 20, 2017. CT FINDINGS: There is a small to moderate right pleural effusion and there is essentially lobar atelectasis in the right lower lobe new from the prior study. Air bronchograms are seen in the right lower lobe. A small quantity of left pleural fluid is seen. This is new from the prior study as well. The lung bases are otherwise clear. Today's study again demonstrates a very large subcapsular hematoma surrounding the right lobe of the liver. This is very slightly larger than on the April 20, 2017 study. There is an area of posteroinferiorly approximately 4 cm in diameter, which is more prominent. The greatest [id number] thickness today is 5.1 cm. The craniocaudal span measures 17.6 cm. Anteroposterior span is 18.4 cm. These measurements are quite similar to those obtained April 20, 2017. The hematoma has a heterogeneous appearance consistent with hematocrit effect and semi-solid content. There is some compression and deformity of the right hepatic contour as before. A moderate hemoperitoneum is seen and this has increased since the April 20, 2017 study with more fluid in the pericolic gutters bilaterally and new fluid surrounding the spleen. No bowel distension is seen. There is distal colonic diverticulosis. A Clayton catheter is in place. IMPRESSION: 1. Increased right pleural effusion now small to moderate. New small left pleural effusion. 2. Progressive, lobar atelectasis right lower lobe of the lung. 3. Slight increase in the size of the subcapsular hematoma. 4. Increased in size of the hemoperitoneum. Signed by Twan Mcleod MD 04/24/2017 08:58 A
[2017-04-24] MEDS ORDERED: PHYTONADIONE 5 MG TAB PO SCH (09:00)
[2017-04-24] MEDS: PANTOPRAZOLE 40MG INJ (PROTONIX) (C9113) IV SCH ×2 (09:35→21:22)
[2017-04-24] MEDS: SENOKOT S TAB PO SCH ×2 (09:35→21:22)
--- NOTE | 2017-04-24 10:40 | IPN ---
DATE OF SERVICE: 04/23/2017 Critical Care Progress Note SUBJECTIVE: The patient is seen today at the bedside in the intensive care unit (ICU). His family is at bedside. His overnight course is significant for fevers, temperature maximum 101.1. He was started on meropenem 1 gram intravenous (IV) every 24 and vancomycin 1 gram IV given once. He has also been started on Clinimix running at 60 mL an hour. He notes dyspnea on exertion, and he remains on 3-liter nasal cannula without increase in supplemental oxygen requirement over the past 24 hours. The patient remains hemodynamically stable and not requiring pressor support. He has received in total three fresh frozen plasmas (FFPs) and four packed red blood cells (PRBC). He has also received vitamin K for his coagulopathy with improvement in his international normalized ratio (INR). His hemoglobin has been stable in the 10s. The patient denies any change in his abdominal discomfort. He remains oligoanuric to Clayton catheter. REVIEW OF SYSTEMS: Negative for headache, lightheadedness, dizziness, chest pain, palpitations. Positive for shortness of breath, dyspnea on exertion, abdominal tenderness and distention. Positive for minimal urine output to Clayton catheter. Remainder of review of systems is negative. VITAL SIGNS: Current temperature 98.7, maximum temperature (Tmax) in previous 24 hours 101.1, pulse 95, respiratory rate 20, blood pressure 134/63, pulse oximetry 96% on 4 liters nasal cannula. INTAKE AND OUTPUT: The patient remains in daily positive fluid balance. Over the past 24 hours, intake 3775, output 2281 of which urine was only 88 mL for a positive fluid balance of 1.5 liters. He has a nasogastric tube in place with drainage of 1700 mL. His daily weight continues to rise from 96.9 to currently 104.2 kg over the past 72 hours. PHYSICAL EXAMINATION: The patient is awake, alert, oriented, and in no acute distress. HEENT: Sclerae are clear and anicteric. Extraocular muscles are intact. Mucous membranes are moist. A nasogastric tube is in place. NECK: Is supple. He has a left internal jugular (IJ) catheter and a right IJ dialysis catheter in place without surrounding erythema. CARDIAC: S1, S2, with a mechanical click. 2+ radial pulse. No peripheral lower extremity edema. No significant sacral of dependent edema. PULMONARY: Decreased breath sounds bilaterally. The right base is decreased more than the left. Mild tachypnea. Respiratory rate 22 on 4 liters nasal cannula. No rales or no wheeze or rhonchi. ABDOMEN: Is distended and tympanitic with scattered ecchymosis. EXTREMITIES: He has compression devices in the lower extremities. No significant edema in the lower extremities. MUSCULOSKELETAL: Power and range of motion is intact. NEUROLOGIC: He is alert and oriented without focal deficit. PSYCHIATRIC: Appropriate mood and affect. LABORATORY STUDIES: White count 11.1, hemoglobin 10.2, platelet 164. INR improved to 1.9 from 3.3 previously. Sodium 135, potassium 4.5, bicarbonate 25, BUN 65, creatinine 7.1, corrected calcium 7.9, liver function tests (LFTs) downtrending, AST 4400, ALT 3400, ammonia level 58, BNP 415. Random vancomycin level 12.5. MICROBIOLOGY: Blood cultures from 04/20/2017 with no growth. Repeat blood cultures from 04/22/2017 pending. Urine culture 04/20/2017 no growth. IMAGING: Chest x-ray 04/23/2017, elevation of right hemidiaphragm. No new infiltrates. INPATIENT MEDICATIONS: The patient is on IV Clinimix running at 60 mL an hour. He has received calcium gluconate. He is on IV fat emulsion. He is on day #2 of meropenem and vancomycin with a random vancomycin level of 12.5. His Tylenol containing compounds was continued. He was started on lactulose for hyperammonemia level. He received vitamin K for his coagulopathy. ASSESSMENT AND PLAN: A 71-year-old male with history of mechanical aortic valve replacement, on Coumadin, status post laparoscopic cholecystectomy on 04/18/2017 with subsequent large perihepatic hematoma and hypovolemic shock, admitted with oligoanuric acute tubular necrosis (ATN), acute liver injury, volume overload, and evolving coagulopathy. 1. Oligoanuric acute kidney injury acute tubular necrosis secondary to hypovolemic shock, acute tubular necrosis with superimposed angiotensin receptor brittany (ARB) dysautoregulation. The patient remains oligoanuric. He will have a second hemodialysis treatment today for 4 hours with ultrafiltration goal of 1-2 kg. He may require serial daily dialysis for the next 24-72 hours to help with his volume status and respiratory management. He remains in daily positive fluid balance, and he has been hemodynamically stabilized at this point. His mean arterial pressures (MAPs) are above 65 without any requirement of pressor support, and he has been tolerating intermittent hemodialysis. We will reassess daily for any signs of renal recovery. We will watch his interdialytic creatinine and urine output to Clayton. His medications are reviewed and no nephrotoxic medications found. His vancomycin level is 12.5. 2. Acute liver injury secondary to ischemic hepatitis and perihepatic hematoma. his liver function tests (LFTs) have been improving. The patient's ammonia level is elevated, but he is not encephalopathic currently. He has been started on lactulose. He has received vitamin K for his coagulopathy, and he has also received fresh frozen plasma 3 units. He is being dialyzed without heparin. 3. Hypocalcemia. The dialysate calcium concentration will be increased to 3 mEq. 4. Fever spikes. The patient is currently on empiric antibiotics with meropenem and vancomycin. His random vancomycin level was 12.5. He should have a daily vancomycin level drawn, and he should be dosed for low levels. 5. Hyponatremia, mild, secondary to vigorous volume resuscitation. Will improve with dialysis. We will plan for 1-2 kg ultrafiltration today. 6. Mechanical aortic valve. His anticoagulation remains at hold due to coagulopathy and increased bleeding risk and perihepatic hematoma. He is being dialyzed without systemic heparin. 7. Shortness of breath. The patient is in daily positive fluid balance. He is now hemodynamically stable not requiring any pressors. He was dialyzed yesterday with half a kg removed. He will dialyzed again today with goal of 1-2 kg ultrafiltration (UF). If his blood pressures continue to remain stable, I would recommend to reduce to minimize his IV intake to prevent further volume overload and to maintain euvolemia and to prevent any further respiratory distress. We will continue to dialyze him for volume management. The patient remains guarded. Greater than 35 minutes was spent in the critical care of this patient, exclusive of procedures. The plan of care discussed with Dr. Huntley. EDWIN
--- NOTE | 2017-04-24 11:53 | PHACANCOPD ---
PHARMACY VANCOMYCIN DOSING Pt Demographics Demographics Patient Age:71 , Weight:103.900 , Gender: male Vancomycin Vancomycin Target Ranges: 15-20 mcg/ml Vancomycin Load Y/N: No Load Dose Date Time Vancomycin Load Dose: Date: Time: Vancomycin Dose Date: 04/22/17. Current Vancomycin Dose: [1GM x1 DOSE] Intermittent Dosing?: Yes Labs Micro Microbiology 04/22/17 Blood Culture - Preliminary, Resulted No growth after 24 hours . All specim... 04/22/17 Blood Culture - Preliminary, Resulted No growth after 24 hours . All specim... 04/20/17 Blood Culture - Preliminary, Resulted No Growth after 72 hours. All specime... 04/20/17 Blood Culture - Preliminary, Resulted No Growth after 72 hours. All specime... 04/20/17 Urine Culture - Final, Complete Creatinine Clearance Date:04/22/17. Creatinine Clearance: [0 ml/min]. Pending Labs VANCO RANDOM IN THE AM 04/23/17 Assessment and Plan Maintaining Current Dose?: Yes Reason for dose change: No Dose Change Pharmacist Note Pharmacist Note 04/24/17: Day #3 of meropenem/vancomycin therapy for empiric coverage. All cultures remain negative at this point, but WBC remains elevated, and the patient has been febrile. Today's random level resulted at 24.1mcg/ml, and the patient is to continue with dialysis. We will continue the patient on vancomycin 1500mg IV HD. I have scheduled a random vancomycin level to be drawn with tomorrow's morning labs. We will continue to monitor and make any further dose adjustments if needed. 04/23/17: Today is Day#2 of meropenem/vancomycin therapy for empiric coverage. Today's random level resulted at 12.5mcg/ml. The patient is scheduled for hemodialysis again today, and so I will increase today's vancomycin dose to 1500mg x 1 dose after HD. Another random vancomycin level will be scheduled to be drawn with tomorrow's morning labs, and we will continue intermittent dosing based on these random levels. Date: 04/22/17. Pharm.D. note: 71YO MALE, 100KG, SCR AT 7.45 mcg/ml THIS MORNING PRIOR TO HD (per PN). HIS VANCO WAS INITIATED AT A STANDARD 1GM DOSE POST-HD FOLLOWED BY DAILY DOSING PER HIS RANDOM LEVELS. MEROPENEM WAS ALSO INITIATED AT A REDUCED FREQUENCY WITH THE PRIMARY DOSE GIVEN POST-HD. [facility] Apr 24, 2017 11:53
[2017-04-24 13:23] LABS: INR 1.3
[2017-04-24] MEDS ORDERED: VANCOMYCIN HCL 500 MG in D5W MINI-BAG PLUS 100 ML IV ONE ×2 (14:30→18:00)
[2017-04-24] MEDS ORDERED: HEPARIN 1,000 UNITS/ML 10ML VIAL (FOR RADIOLOGY& DIALYSIS ONLY) XX ONE (15:00)
[2017-04-24] MEDS: CHECK TO SEE IF PATIENT IS RECEIVING DIALYSIS TODAY AND REFER TO THE VANCOMYCIN ORDER XX SCH (17:52)
[2017-04-24] MEDS ORDERED: AMINO AC/ELECTROLYTE/DEX/CALC 2,000 ML IV SCH (18:00)
[2017-04-24] MEDS ORDERED: FAT EMULSION IV 20% 500 ML IV SCH (18:00)
[2017-04-24] MEDS ORDERED: VANCOMYCIN HCL 750 MG, VIAL MATE ADAPTER 1 EACH in D5W 250 ML IV SCH ×2 (18:00→19:00)
--- NOTE | 2017-04-24 18:24 | IPN ---
DATE: 04/24/2017 The patient is seen and examined at the bedside. Chart has been reviewed. Per nursing, the patient had increasing abdominal distention with increasing of tense abdomen. Per the daughter at the bedside, he has been having increasing amount of pain in the right upper quadrant, un-alleviated by oxycodone and intravenous morphine. The patient otherwise denies nausea or vomiting. He is passing flatus. Nasogastric (NG) tube has been clamped over the past 24 hours with worsening abdominal distention. Hemoglobin and hematocrit has decreased from 11 to 9.4 over the past 24 hours. This morning he denies any chest pain, pressure or tightness, worsening shortness of breath, palpitations, or lightheadedness. Vital signs have remained stable. He appears to be afebrile for the past 48 hours. Blood pressure is well-maintained in the 130s to 150s. Input and output overnight: Input of 2730, output of 910, positive 1820 with urine output of 95. Current weight is 103.9 from previous weight of 104.2 kg. The patient receive hemodialysis yesterday and this morning had improving liver function tests but decreasing hemoglobin and hematocrit. No signs of metabolic acidosis or hyperkalemia. VITAL SIGNS: Temperature 98.6, pulse of 87, respiratory rate 20, blood pressure 148/72, 95% on four liters nasal cannula. INPUT AND OUTPUT: Input 2730, output 910, 1820 positive. Urine output is 95, gastric drainage 815. Current weight is 103.9, previous weight of 104.2. GENERAL: The patient is awake, alert and oriented times to person, place and time, answering questions appropriately. LUNGS: Diminished. Mild tachypnea. HEART: S1, S2. Sinus rhythm. ABDOMEN: Distended, tense. Hyperactive bowel sounds. Slightly tender on deep palpation. No rebound. No guarding. EXTREMITIES: No edema. LABORATORY DATA: White count 11, hemoglobin 9.4, hematocrit 26, platelet count 170. Sodium 138, potassium 4.4, chloride 102, bicarbonate 26, BUN 52, creatinine 6.43, glucose 136, calcium 6.7, total bilirubin 1.6, AST 1629, ALT 2230, alkaline phosphatase 257, ammonia of 68. Repeat ammonia level is pending. INR of 1.55. IMAGING STUDIES: Chest x-ray on 04/23/2017: Right internal jugular line terminates in expected location at the SVC, elevated right hemidiaphragm, blunting of the right pleural angle and pleural thickening, discoid atelectasis at the left base and one or two air bronchograms above the elevated right hemidiaphragm. No new infiltrates seen. ASSESSMENT AND PLAN: This is a 71-year-old male with a history of mechanical aortic valve on chronic anticoagulation with Coumadin, history of coronary artery disease (CAD), left bundle branch block, hypertension, nephrolithiasis, benign prostatic hyperplasia (BPH), chronic kidney disease stage III, baseline creatinine 1.1 to 1.3, anemia, reflux, solitary pulmonary nodule, status post laparoscopic cholecystectomy on 04/18/2017, was sent home with Lovenox for his mechanical aortic valve, developed increasing right upper quadrant abdominal pain status post discharge on Friday, was seen at [facility] Room (ER) and was given Matheson and discharged from the emergency room. The patient then complained of lightheadedness and dizziness and presented to [facility]. He was found to be hypotensive with systolic pressure in the 70s, tachycardic, but no fevers with continued use of his losartan and isosorbide at home. CT abdomen and pelvis showed right upper quadrant pain, which showed a large perihepatic hematoma measuring 16.8 cm x 6 cm x 17.9 cm, cranial caudal with some adjacent small hematoma in the omental fat beneath the gallbladder and some hemoperitoneum, appears to be subcapsular. The patient was admitted under surgical services with initial admission hemoglobin of 13, decreased to 8.4 throughout his admission. The patient received four units of leukocyte reduced red blood cells transfusions. The patient had a baseline creatinine 1.1. He developed significant oliguria with hyperkalemia, metabolic acidosis, and volume overload requiring emergent hemodialysis. Liver function tests increased with admission aspartate aminotransferase (AST) of 76, peak AST of 13,728 with increasing bilirubin of 1.3, ammonia level increased at 53, and coagulopathy with an international normalized ratio (INR) peak of 3.3 thought to be secondary to shock liver. The patient had hepatic failure and decision was to transfer to [facility] for a higher level of care. He then developed a fever, maximum temperature of 101.1 at 1610 on 04/22/2017, and due to risk of infection with liver failure, the patient was given one dose of vancomycin and for Gram-negative and anaerobic broad spectrum coverage was placed on meropenem with renal dosing. The patient has also received supportive care with fresh frozen plasma and vitamin K despite mechanical aortic valve for elevated INR of 3.3, currently improved. Liver function tests have improved over the past 48 hours. However, he now had increasing abdominal distention, pain, and drop in hemoglobin from 11 to 9.4. CURRENT ISSUES: 1. Multiorgan failure with hepatic failure due to shock liver with elevated bilirubin, ammonia, coagulopathy requiring supportive care with vitamin K, fresh frozen plasma, lactulose. Acute tubular necrosis, due to severe hypotension and hypovolemia from angiotensin-receptor brittnay (ARB) and dysauto regulation requiring emergent hemodialysis due to oliguria, hyperkalemia and metabolic acidosis, systemic inflammatory response syndrome (SIRS) with tachycardia and fever. Currently, the patient is receiving full supportive care per Dr. Alegre, liver transplant promotions director at [place], [place]. His recommendations are to continue with vitamin K, fresh frozen plasma for coagulopathy, antibiotics for fevers, as the patient is increased risk of infection with hepatic failure until shock liver resolves over the next few days. Hemodialysis for oliguric renal failure with hyperkalemia and metabolic acidosis. Blood transfusions for anemia and platelet transfusion if the patient develops significant severe thrombocytopenia with ongoing bleeding. Primary service, Dr. Monson, and family to decide if they would prefer to be transferred to [facility] as the patient's condition regarding his liver functions is improving. However, we will continue to evaluate his decrease in hemoglobin and hematocrit. 2. Acute renal failure, secondary to acute tubular necrosis (ATN) and dysauto regulation secondary to ARB. Severe hypotension on admission causing shock liver. Currently managed by nylon hot wire cutter, Dr. Joceline Guerrero. The patient has received emergency hemodialysis during this admission due to oliguria, metabolic acidosis, and hyperkalemia with adequate systolic pressure remaining in the 130s to 150s. The patient's metabolic acidosis, fluid overload, and hyperkalemia have resolved. He is currently saturating well on four liters of nasal cannula supplemental oxygen. 3. Acute blood loss anemia, secondary to large subcapsular hematoma measuring 16 cm x 6 cm x 17 cm in the perihepatic region, secondary to anticoagulation with Lovenox, bridged therapy for his mechanical aortic valve status post laparoscopic cholecystectomy. The patient has received a total of four units of leukocyte reduced wendie blood cell transfusion and two units of fresh frozen plasma for emergent reversal of his coagulopathy. Procoagulation for his aortic mechanical valve has been placed on hold until the patient's anemia has completely resolved. The patient's hemoglobin on admission was 13.6 with the lowest at 8.4, currently at 9.4, decreased from 11 over the past 24 hours. We will reevaluate the patient's hematoma with a repeat CT of the abdomen and pelvis without contrast due to significant decrease of two grams from 11 to 9.4 this morning. Hold off on anticoagulation until the patient's subcapsular hematoma has been reevaluated. The patient has received four units of leukocyte reduced red blood cells in total and two units of fresh frozen plasma during this admission. He appears to be hemodynamically stable. 4. Respiratory distress and hypoxia, requiring supplemental oxygen, currently four liters due to increasing abdominal distention from the perihepatic hematoma, fluid overload from renal failure. Management per nephrology for removal of fluids. Dr. Huntley has been consulted. The patient appears to be saturating well 90% to 96% on four liters nasal cannula. Chest x-ray is unchanged. No indication for intubation at this time. 5. History of mechanical aortic valve. Anticoagulation has been held due to a large liver subcapsular hematoma, increased risk of emboli, and cerebrovascular accident (CVA). The patient has been made aware of the risks and unfortunately anticoagulation needs to be held until the patient is better stabilized with consistently unchanged hemoglobin and hematocrit and international normalized ratio (INR) with no signs of coagulopathy without intervention. 6. Nutrition, on total parenteral nutrition (TPN). Regulatory Affairs Consultant has been consulted. Managed by primary surgical services. 7. History of coronary artery disease with complaints of shortness of breath, most likely secondary to increased abdominal distention and fluids. Cardiac markers show demand mediated ischemia with no acute coronary syndrome. 8. Reflux on Protonix. 9. Hyperlipidemia. Statins are held due to liver failure. 10. Shock liver with hepatic failure, coagulopathy, elevated ammonia levels, hyperbilirubinemia and severe transaminitis. The patient aspartate aminotransferase (AST) and alanine aminotransferase (ALT) are improving. He has received fresh frozen plasma and vitamin K for his coagulopathy, lactulose for his pneumonia, antibiotics for fevers. At this time, no signs of infection. 11. Fever, most likely secondary to hematoma. However, due to shock liver, he has been provided supportive care with empiric antibiotics with meropenem for Gram-negative and anaerobic coverage. 12. Chronic left bundle branch block, stable. 13. Diet. TPN. 14. Deep vein thrombosis (DVT) prophylaxis. Due to acute blood loss anemia from the liver subcapsular hematoma, the patient is currently on Venodyne compression stockings.
[2017-04-24] MEDS: MEROPENEM INJ 1 GM in D5W MINI-BAG PLUS 100 ML IV SCH (19:58)
[2017-04-25] VITALS (13 sets, daily range): BP systolic 145–190; BP diastolic 65–88
[2017-04-25 05:21] LABS: INR 1.33
[2017-04-25 05:27] LABS: BASO % 0.3 % (0.0-1.0); EOS # 0.3 K/mm3 (0.0-0.50); EOS % 3.1 % (0.0-3.0); LARGE UNSTAINED CELL # 0.3 K/mm3 (0.0-0.4); LARGE UNSTAINED CELL % 3.5 % (0.0-4.0); LYMPH # 0.5 K/mm3 (1.5-4.5); LYMPH % 5.3 % (24.0-44.0); MEAN CORPUSCULAR HEMOGLOBIN 31.7 pg (27.0-33.0); MEAN CORPUSCULAR HGB CONC 34.7 g/dl (32.0-36.5); MEAN CORPUSCULAR VOLUME 91.3 fl (80.0-96.0); MONO # 0.7 K/mm3 (0.0-0.8); MONO % 7.2 % (0.0-5.0); NEUTROPHILS # 7.4 K/mm3 (1.8-7.7); NEUTROPHILS % 80.6 % (36.0-66.0); PLATELET COUNT, AUTOMATED 184 k/mm3 (150-450); RED CELL DISTRIBUTION WIDTH 14.4 % (11.5-14.5); WHITE BLOOD COUNT 9.1 K/mm3 (4.0-10.0)
[2017-04-25 05:58] LABS: ALBUMIN 2.3 GM/DL (3.2-5.2); ALBUMIN/GLOBULIN RATIO 0.82 (1.00-1.93); BILIRUBIN,TOTAL 1.7 MG/DL (0.2-1.0); CALCIUM LEVEL 7.6 MG/DL (8.8-10.2); CREATININE FOR GFR 5.97 MG/DL (0.70-1.30); POTASSIUM SERUM 4.7 MEQ/L (3.5-5.1); TOTAL PROTEIN 5.1 GM/DL (6.4-8.2)
[2017-04-25] MEDS: SUCRALFATE SUSP 1GM/10ML UD PO SCH ×4 (06:32→23:41)
[2017-04-25] MEDS: DICYCLOMINE 10 MG CAP PO SCH ×4 (06:32→23:41)
[2017-04-25] MEDS: HumaLOG INSULIN (NovoLOG) PER UNIT SC SCH ×2 (06:33→12:17)
[2017-04-25] MEDS: PANTOPRAZOLE 40MG INJ (PROTONIX) (C9113) IV SCH ×2 (08:05→20:20)
[2017-04-25] MEDS: SENOKOT S TAB PO SCH ×2 (08:06→20:20)
--- NOTE | 2017-04-25 10:23 | PHACANCOPD ---
PHARMACY VANCOMYCIN DOSING Pt Demographics Demographics Patient Age:71 , Weight:104.800 , Gender: male Events Past 24 Hours Events Past 24 Hours: NO: Dialysis, Diuretic Therapy, Change in CrCl, Fever, Elevation in WBC, Pending Diagnostics, Pending Procedures, Other Vancomycin Vancomycin Target Ranges: 15-20 mcg/ml Vancomycin Load Y/N: No Load Dose Date Time Vancomycin Load Dose: Date: Time: Vancomycin Dose Date: 04/22/17. Current Vancomycin Dose: [1GM x1 DOSE] Intermittent Dosing?: Yes Labs Micro Microbiology 04/22/17 Blood Culture - Preliminary, Resulted No Growth after 48 hours. All Specime... 04/22/17 Blood Culture - Preliminary, Resulted No Growth after 48 hours. All Specime... 04/20/17 Blood Culture - Preliminary, Resulted No Growth after 72 hours. All specime... 04/20/17 Blood Culture - Final, Complete NO GROWTH AFTER 5 DAYS 04/20/17 Urine Culture - Final, Complete Creatinine Clearance Date:04/22/17. Creatinine Clearance: [0 ml/min]. Pending Labs VANCO RANDOM IN THE AM 04/23/17 Assessment and Plan Maintaining Current Dose?: No Reason for dose change: Other Pharmacist Note Pharmacist Note 04/25/17: Day #4 Today's random level resulted at 20.3 mcg/ml. I spoke with Dr. Joceline Guerrero who has been following the Vanco dosing for this patient. Per MD we are to hold Vanco dosing for today and schedule another random level tomorrow. Based on that level we will contact Nephrology and discuss dosing from there. We will continue to monitor patient with nephrology making dosing recommendations. 04/24/17: Day #3 of meropenem/vancomycin therapy for empiric coverage. All cultures remain negative at this point, but WBC remains elevated, and the patient has been febrile. Today's random level resulted at 24.1mcg/ml, and the patient is to continue with dialysis. We will continue the patient on vancomycin 1500mg IV HD. I have scheduled a random vancomycin level to be drawn with tomorrow's morning labs. We will continue to monitor and make any further dose adjustments if needed. 04/23/17: Today is Day#2 of meropenem/vancomycin therapy for empiric coverage. Today's random level resulted at 12.5mcg/ml. The patient is scheduled for hemodialysis again today, and so I will increase today's vancomycin dose to 1500mg x 1 dose after HD. Another random vancomycin level will be scheduled to be drawn with tomorrow's morning labs, and we will continue intermittent dosing based on these random levels. Date: 04/22/17. Pharm.D. note: 71YO MALE, 100KG, SCR AT 7.45 mcg/ml THIS MORNING PRIOR TO HD (per PN). HIS VANCO WAS INITIATED AT A STANDARD 1GM DOSE POST-HD FOLLOWED BY DAILY DOSING PER HIS RANDOM LEVELS. MEROPENEM WAS ALSO INITIATED AT A REDUCED FREQUENCY WITH THE PRIMARY DOSE GIVEN POST-HD. FREDY FERRARA PHARMACY Apr 25, 2017 10:23
[2017-04-25] MEDS ORDERED: HEPARIN DRIP 25,000 UNITS in APPROPRIATE DILUENT 1 EA IV SCH (10:34)
[2017-04-25] MEDS ORDERED: HEPARIN SOD (PORCINE) 5000 UNITS/ML VIAL IV PRN (10:45)
--- NOTE | 2017-04-25 10:51 | IPN ---
DATE OF SERVICE: 04/24/2017 CRITICAL CARE NOTE SUBJECTIVE: Patient is seen this morning in the intensive care unit. He denies any acute complaints. He was dialyzed yesterday with 2500 mL ultrafiltration. He was out of bed this morning and continues to note dyspnea on exertion. He remains on 4 liters nasal cannula and is hemodynamically stable. His is present at the bedside. Patient is tolerating clear liquid diet. He remains oligoanuric. Overnight the patient has remained afebrile. He had a CT scan that showed a new small to moderate right-sided pleural effusion and atelectasis of the right lower lobe, a slight increase in his subcapsular hematoma and increased size in hemoperitoneum. He remains on meropenem and vancomycin dosed after hemodialysis. His random vancomycin level was elevated today, 24.1. REVIEW OF SYSTEMS: Negative for headache, dizziness, chest pain, palpitations. Positive for shortness of breath and dyspnea on exertion. Positive for abdominal distention and tenderness. Remainder of review of systems is negative. VITAL SIGNS: Temperature 98.6, pulse 87, respiratory rate 20-26, blood pressure 148/72, pulse oximetry 95% on 4 liters nasal cannula. INTAKE AND OUTPUT: Intake 2730, output 3410 of which 2500 mL was from dialysis. Weight on the bed scale 103.9 kg up from admission 96.9 kg. PHYSICAL EXAMINATION: GENERAL: The patient is awake, alert, oriented times three. He was in no acute distress. Family is present at the bedside. He is receiving hemodialysis at this time. HEENT: Extraocular muscles are intact. Moist mucous membranes. NECK: Left internal jugular (IJ) triple-lumen catheter (TLC) catheter, right IJ temporary dialysis catheter. LUNGS: Mild tachypnea, respiratory rate 20-25 on 4-liter nasal cannula. Diminished breath sounds at bases. HEART: S1, S2, mechanical click. Regular rate. Pedal edema present, but no dependent sacral or lower extremity edema. ABDOMEN: Distended, scattered ecchymosis. Deep palpation was not performed. MUSCULOSKELETAL: Normal muscle tone and range of motion. GENITOURINARY: Clayton catheter with minimal urine output. NEUROLOGIC: no focal deficit LABORATORIES: WBC 11.4, hemoglobin 9.4, platelets 170. INR 1.5. Sodium 138, potassium 4.4, bicarbonate 26, BUN 52, creatinine 6.4, corrected calcium 7.9. Liver function tests (LFTs) continue to downtrend, AST 1600, ALT 2200, ammonia downtrending 35. Random vancomycin level 24.1. MICROBIOLOGY: Blood cultures 04/22 no growth for 24 hours. Blood cultures 04/20 no growth for 72 hours. IMAGING: CT scan of the abdomen and pelvis 04/24: Increased right pleural effusion, mild to moderate with lobar atelectasis at the right lower lobe. Slight increase in the size of subcapsular hematoma and increase in size of hemoperitoneum. Clayton catheter seen in place. INPATIENT MEDICATIONS: Reviewed. Patient remains on Clinimix and intravenous (IV) fat emulsion, on meropenem and vancomycin postdialysis. Remainder of medications are unchanged from prior. ASSESSMENT AND PLAN: 1. Oligoanuric acute kidney injury (CHANNING) requiring renal replacement therapy. The patient received his third serial hemodialysis treatment today. From a volume point of view, I am very reluctant to further aggressively ultrafiltrate him. His respiratory status remains stable on 4 liters nasal cannula. He does have some limitation for full inspiration, especially for the right lung with the elevated hemidiaphragm secondary to large subcapsular hematoma and CT scan did show small to moderate right-sided pleural effusion with atelectasis. I do not think that aggressive ultrafiltration would benefit him from a respiratory point of view at this time and in fact would prolong the amount of time for renal recovery in this patient with acute renal failure from hemodynamic mediated tubular injury. I will hold off on dialysis tomorrow. He will continue to be assessed daily for hemodialysis needs based upon clinical presentation, respiratory status, volume status and electrolytes. If this is a dense acute tubular necrosis (ATN), he may take a couple weeks to have renal recovery. His renal recovery will hinge upon maintenance of hemodynamic stability and avoidance of nephrotoxins. Further aggressive ultrafiltration is not warranted at this time and would prolong his time course to renal recovery. 2. Fever spikes. Blood cultures remain negative thus far. The patient is on empiric antibiotics with meropenem and vancomycin postdialysis. He has not had a fever spike in the past 24 hours. His random vancomycin level was elevated this morning at 24.5. He should have a daily vancomycin level drawn and he should be dosed for levels less than 15. Giving a dose of vancomycin 500 mg to 750 mg would probably be enough to keep his vancomycin level between 15 and 20. Would avoid levels higher than that for nephrotoxicity. I have discussed with pharmacy regarding vancomycin dosing. 3. Acute liver injury secondary to ischemic hepatitis and perihepatic hematoma. His liver function tests (LFTs) continue to improve. His ammonia level is downtrending. He is not encephalopathic. His coagulopathy has been reversed with vitamin K and fresh frozen plasma (FFP). We are dialyzing him without systemic heparin. On CT scan, he does have a mild increase in his subcapsular hematoma and hemoperitoneum. 4. Hypocalcemia. The patient's dialysate calcium concentration was increased to 3 mEq. 5. Shortness of breath. A component of his shortness of breath is likely from his right-sided small to moderate pleural effusion, lower lobe atelectasis and elevated hemidiaphragm. He remains stable on 4 liters nasal cannula. We would not aggressively ultrafiltrate him for his dyspnea on exertion. Aggressive dialysis and ultrafiltration will prolong the time to renal recovery. He will be daily assessed for dialysis needs. Plan of care is discussed with Dr. Huntley, the patient and his at bedside, as well as inpatient pharmacy. 40 minutes spent in the critical care of this patient exclusive of procedures. MTDD
--- NOTE | 2017-04-25 10:51 | CCN ---
DATE OF SERVICE: 04/24/2017 Mr. Qureshi is a 71-year-old male who has a subcapsular liver hematoma. Patient has been hospital day four and intensive care unit (ICU) Day two. Patient states to be feeling a lot better today. Patient is tolerating his meals such as pudding and cream of wheat in small portions. Patient states that he has some times trouble breathing, but it clears up when he clears his throat or when he coughs. Later on today there is a plan for patient to continue dialysis on day three. Patient is tolerating all his medications and has no complaints this morning. VITAL SIGNS: Pulse 83, regular, blood pressure 139/75 (96), pulse oximetry of 95% on nasal cannula 4 liters, temperature 98.6, maximum temperature (T-max) 99.3. PHYSICAL EXAMINATION: GENERAL APPEARANCE: Awake, alert and oriented times three. Minimal tachypnea without accessory muscle use. CARDIAC: Regular S1, S2, sharp mechanical click. No rubs or gallops appreciated. No murmurs. LUNGS: Decreased lung breath sounds at the right base. No rales, rhonchi appreciated. Patient is positive for laryngeal wheezes that clear with a cough. GASTROINTESTINAL (GI): Abdomen is distended. There are positive bowel sounds. However, is difficult to palpate and the deep palpation was not performed to avoid injury. EXTREMITIES: No cyanosis, clubbing or edema appreciated. LABORATORY EVALUATION: WBC 11.4, hemoglobin 9.4, hematocrit 26.3, platelets of 170. Chemistry showed sodium 138, potassium of 4.4, chloride of 102, carbon dioxide of 26, BUN of 52, creatinine of 6.43, calcium of 6.7, total bilirubin of 1.6, AST 1629, ALT of 2230, total protein of 5.1, albumin of 2.4, ammonia level of 35. Coagulation studies: PT 19.0, INR 1.55. IMAGING: Abdominal and pelvic CT was a comparison CT study of 04/20/2017. Impression: 1. Increased right pleural effusion now small to moderate. New small left pleural effusion. 2. Progressive, lobular atelectasis right lower lobe of the lung. 3. Slight increase in size of the subcapsular hematoma. 4. Increase in size of the hemoperitoneum. IMPRESSION: 1. Hypoxia. Patient is to continue oxygen supplementation as needed. We are giving the patient PEP therapy and a green Acapella to help with the hypoxia. 2. Acute liver injury with perihepatic hematoma. AST and ALT are climbing down. Today they are 1629 and 2230, respectively. International normalized ratio (INR ) is down from 1.9 to 1.55. We will monitor his hemoglobin and hematocrit for another 24 hours. If stable, we will start a heparin drip for 24 hours which he will stay in the intensive care unit (ICU) so that we can monitor for bleeding. 3. Hyperammonemia. The patient's ammonia levels are climbing down from 68 to 35. Will continue to monitor the patient as needed. 4. Fever. The patient is currently on empiric antibiotics, meropenem and vancomycin. Nephrology lowered the dose from 1500 to 500 of the vancomycin per base of vancomycin levels and the patient. Will continue to monitor the patient as needed. 5. Mechanical aortic valve. Patient has a good mechanical click without evidence of embolic disease. He is a much higher risk for bleeding than he is for thrombosis of this. Will continue to monitor the patient's hemoglobin, hematocrit for the next 24 hours. Once it is stable, we will start the patient on a heparin drip for 24 hours where he will stay in the ICU so we can monitor him for bleeding. My preceptor for this patient encounter was Dr. Taye Huntley. The preceptor was physically present in the room during the encounter and was fully available as needed. All aspects of the patient interview, examination, medical decision making process, and medical care plan development were reviewed and approved by the preceptor. The preceptor is aware and concurs with the plan as stated in the body of this note and will attest to such by her co-signature. I, Taye Huntley, conducted an independent history and physical. I agree with the plan as outlined above. EDWIN
[2017-04-25] MEDS ORDERED: zolPIDEM TARTRATE 5 MG TAB PO PRN (12:30)
[2017-04-25] MEDS: CHECK TO SEE IF PATIENT IS RECEIVING DIALYSIS TODAY AND REFER TO THE VANCOMYCIN ORDER XX SCH (15:50)
[2017-04-25] MEDS: MEROPENEM INJ 1 GM in D5W MINI-BAG PLUS 100 ML IV SCH (20:20)
[2017-04-25] MEDS: MORPHINE 4 MG/ML 1ML SYRINGE IV PRN ×2 (20:29→23:41)
--- NOTE | 2017-04-25 20:53 | IPN ---
DATE: 04/25/2017 Patient seen and examined at the bedside. Chart has been reviewed. He denies any nausea or vomiting, fever or chills overnight. Shortness of breath is at baseline. Currently on 3 liters nasal cannula. The patient's abdomen still is distended and tender to touch. Repeat CT abdomen and pelvis showed slight increase in the subcapsular hematoma. Hemoglobin and hematocrit without intervention remains at 9.4 to 10.2 and currently at 9.2, probable hemodilutional. INR remains at 1.33. No other issues per nursing. The patient remains oliguric. Urine output is 36 without hyperkalemia or metabolic acidosis, or significant fluid overload. VITAL SIGNS: Temperature 98.2, pulse 93, respiratory rate 22, blood pressure 148/60, 95% on 3 liters nasal cannula. LABORATORY DATA: White count 9.1, hemoglobin 9.2, hematocrit 26.4, platelet count 184. Sodium 136, potassium 4.7, chloride 101, bicarbonate 26, BUN 50, creatinine 5.97, glucose 142, calcium 7.6, total bilirubin 1.7, AST 814, ALT 1462, alkaline phosphatase 280. Ammonia level of 35 yesterday. Blood cultures negative. ASSESSMENT AND PLAN: This is a 71-year-old male with a history of mechanical aortic valve, on chronic anticoagulation with Coumadin, history of coronary artery disease, left bundle, hypertension, nephrolithiasis, benign prostatic hyperplasia, chronic kidney disease stage III, baseline creatinine 1.1 to 1.3, anemia, reflux, solitary pulmonary nodule, status post laparoscopic cholecystectomy 04/18/2017, was sent home with Lovenox for his mechanical aortic valve, developed increasing right upper quadrant abdominal pain, status post discharge on Friday, was seen at [facility], [facility] and discharged from the emergency room. The patient then complained of lightheadedness, dizziness, presented to [facility] ([facility] was found to be hypotensive with systolic pressure in the 70s, tachycardic with no fevers but with continued use of losartan, isosorbide at home. The patient was thought to be in hypovolemic shock. CT abdomen showed right upper quadrant large subcapsular hematoma measuring 16.8 x 6 cm x 17.9 cm with some adjacent small hematoma in the omental fat beneath the gallbladder and some hemoperitoneum, appears to be subcapsular. The patient was admitted under surgical services with initial hemoglobin of 13, decreased to 8.4 throughout this admission and received 4 units of leukocyte reduced red blood cell transfusion. The patient had a baseline creatinine of 1.1, became oliguric with hyperkalemia, metabolic acidosis, volume overload requiring emergent hemodialysis. Liver function tests increased due to shock liver with admission AST of 76, peak AST of 13,728 with increasing bilirubin of 1.3 and ammonia increased at 53, coagulopathy with INR peak of 3.3 thought to be secondary to shock liver. The patient had hepatic failure and decision was made to transfer to [facility] for higher level of care. He then developed a fever, maximum temperature of 101.1 at 1610 hours on 04/22/2017 and due to risk of infection and liver failure, the patient was given vancomycin, intermittent dosing due to renal failure and for gram-negative and anaerobic coverage was placed on meropenem with renal dosing. The patient has also received supportive care with fresh frozen plasma two units, vitamin K despite mechanical aortic valve for elevated INR of 3.3 and ongoing bleeding. Liver function tests have improved over the past 72 hours but still has increasing abdominal distention and pain, and intermittent drop in hemoglobin. Repeat CT abdomen and pelvis shows slight increase in subcapsular hematoma. Patient clinically, however, looks stable. CURRENT ISSUES: 1. Shock liver with elevated bilirubin, ammonia, coagulopathy requiring supportive care with vitamin K, fresh frozen plasma and lactulose. The patient has a subcapsular hematoma, which will resolve on its own. Plans are for transfer to [facility] for a higher level of care. Per Dr. Alegre, liver transplant silo erector [facility] in [place], [place], his recommendations are to continue with supportive care for the liver failure, vitamin K, fresh frozen plasma if needed, antibiotics for fevers, due to increased risk of infection with hepatic failure until shock liver resolves over the next few days. Blood transfusions for anemia, platelet transfusion if the patient develops severe thrombocytopenia with ongoing bleeding. Still awaiting bed from [facility] ([facility]. 2. Acute renal failure. Baseline creatinine 1.1, peak creatinine of 7 with metabolic acidosis, hyperkalemia and fluid overload secondary to acute tubular necrosis (ATN) and dysautoregulation with ARB and severe hypotension on admission requiring emergent hemodialysis, managed by hydraulics teacher, Dr. Joceline Guerrero. The patient appears to be clinically stable with resolution of the metabolic acidosis, hyperkalemia, saturating three liters nasal cannula currently. 3. Acute hypoxic respiratory failure, on three liters nasal cannula secondary to abdominal distention, fluid overload from renal failure and sepsis. No emergent requirement for intubation. 4. Acute blood loss anemia secondary to large subcapsular hematoma measuring 15 x 6 x 17 cm in the perihepatic region secondary to anticoagulation with Lovenox, which was used as bridge therapy for his mechanical aortic valve status post laparoscopic cholecystectomy. The patient did receive four units of leukocyte reduced red blood cell transfusion and two units of fresh frozen plasma for emergent reversal of his coagulopathy. Anticoagulation for his aortic mechanical valve has been placed on hold until the patient's anemia has completely resolved and his coagulopathy from his shock liver is stabilized. Hemoglobin and hematocrit was 13 at its highest but lowest of 8.4. He has received four units of leukocyte reduced red blood cells and fresh frozen plasma for stabilization of his coagulopathy. Repeat CT abdomen and pelvis shows slight increase in subcapsular hematoma. Hemoglobin and hematocrit remains at 9.7 to 10 without intervention. Hold off on anticoagulation until subcapsular hematoma has been revaluated. He appears to be hemodynamically stable at this time. 5. Respiratory distress and hypoxia requiring supplemental oxygen, currently three liters due to increasing abdominal distention from subcapsular hematoma, fluid overload from renal failure is currently managed by nephrology. Dr. Huntley has been consulted. He appears to be saturating well 90-98% on three liters nasal cannula. Chest x-ray is unchanged. No indication for intubation at this time. 6. History of mechanical aortic valve. Anticoagulation has been held due to large liver subcapsular hematoma despite increased risk for emboli and cerebrovascular accident (CVA). The patient has been made aware of the risks. Unfortunately, anticoagulation needs to be held until he is better stabilized and hemoglobin and hematocrit remain stable with normal international normalized ratio (INR) and no signs of active bleeding. 7. Nutrition, on total parenteral nutrition (TPN). Oil Field Equipment Mechanic has been consulted. Managed by primary surgical services. 8. History of coronary artery disease with complaints of shortness of breath with troponin leak secondary to severe critical illness. 9. Reflux, on Protonix. 10. Hyperlipidemia. Statins are held due to liver failure. 11. Shock liver with hepatic failure, coagulopathy, elevated ammonia levels, hyperbilirubinemia and severe transaminitis secondary to severe hypotension on presentation and large subcapsular hematoma. Current transaminitis is improving with subsequent improvement in patient's INR as well as ammonia levels. Supportive care with fresh frozen plasma, vitamin K if needed, lactulose for ammonia, antibiotics for fevers. 12. Fevers. Most likely secondary to hematoma. However, due to shock liver, multiorgan failure with respiratory distress and kidney failure requiring hemodialysis, patient has been given empiric antibiotics. Blood cultures remain negative. He is currently on meropenem for gram-negative anaerobic coverage and gram-positive coverage with intermittent vancomycin that is renally dosed. 13. Chronic left bundle branch block. Stable. 14. Diet:. TPN. 15. Deep vein thrombosis (DVT) prophylaxis. Due to acute blood loss anemia from the liver subcapsular hematoma, patient is current on Venodyne compression stockings. DISPOSITION: Still awaiting a bed from [facility].
[2017-04-26] VITALS (12 sets, daily range): BP systolic 138–173; BP diastolic 67–95
--- NOTE | 2017-04-26 04:30 | IPN ---
DATE OF SERVICE: 04/25/2017 SUBJECTIVE: Patient is seen this morning in the intensive care unit (ICU) in an interdisciplinary team with Dr. Monson, surgery and Dr. Szymanski, ICU. His daughter is at bedside. Patient reports he ambulated this morning without oxygen. His shortness of breath is unchanged from prior. His oral intake has picked up. He has no acute complaints this morning. He is to be started on heparin drip today. REVIEW OF SYSTEMS: Negative for headache, lightheadedness, chest pain, palpitations. Positive for dyspnea on exertion, abdominal distention. Negative fornausea, vomiting, diarrhea. Positive for improving oral intake. Negative for lower extremity edema. Remainder of review of systems is negative. INTAKE AND OUTPUT: Intake 3350 of which oral intake was 1160. Output of 2030 for a positive fluid balance of 1.3 liters. Patient's urine output was 36 mL. His weight in the bed scale today is 104.8 kg increased from 103.9 yesterday. PHYSICAL EXAMINATION: GENERAL: Patient is awake, alert, oriented times three in bed in no acute distress. HEENT: Moist tongue. Extraocular muscles are intact. NECK: Supple. He has bilateral catheters making it difficult to assess his neck veins. CARDIAC: S1, S2, mechanical click. Regular rate. 2+ radial pulse. LUNGS: Decreased at bases without rale or rhonchi. Scattered wheeze present. GASTROINTESTINAL (GI): Abdomen is distended. There is scattered ecchymosis. Deep palpation is not performed. EXTREMITIES: Without peripheral edema and without sacral or dependent edema. GENITOURINARY: Clayton catheter with minimal urine. NEUROLOGIC: Awake, alert, oriented times three. No focal deficit. PSYCHIATRIC: Appropriate mood and affect. LABORATORIES: White count 9, hemoglobin 9.2, platelets 184. Sodium 136, potassium 4.7, bicarbonate 26, BUN 50, creatinine 5.9. Corrected calcium 9. LFTs downtrending. Microbiology: Blood cultures 04/22 with no growth for 48 hours. Blood cultures 04/20 no growth for 5 days. INPATIENT MEDICATIONS: Reviewed. Patient is receiving vancomycin. I have discussed with pharmacy regarding the dosing. His vancomycin random level is 20.3. His vancomycin will be held today. He remains on Clinimix, is started on IV heparin drip and on as needed Ambien. Remainder of medications are unchanged from prior. ASSESSMENT AND PLAN: 1. Acute tubular necrosis (ATN) requiring renal replacement therapy in the setting of hypovolemic shock. The patient has had three serial hemodialysis treatments for management of his volume status and previous hyperkalemia. As I discussed with the patient and his daughter at the bedside this morning, he will not be aggressively dialyzed or ultra filtrated further. He will be assessed daily for hemodialysis needs based upon his clinical presentation, respiratory status, volume status, and electrolytes. Aggressive dialysis and ultrafiltration is not warranted at this time clinically and would prolong his time course to renal recovery. We will continue to monitor him daily for signs of renal recovery including trend of intradialytic serum creatinine and urine output. Patients with ATN typically have a renal failure phase that lasts for 1-3 weeks. However, if there is ongoing hemodynamic instability or nephrotoxics, the duration can be variable and there may very well likely be a progression in underlying chronic kidney disease. 2. Fever spikes. Blood cultures thus far remain negative. The patient is on IV meropenem and vancomycin. His vancomycin level should be kept under 20. I have discussed with pharmacy again today regarding his vancomycin dosing. His vancomycin random this morning was 20. He will not be dialyzed today. I suggest that we do not administer vancomycin today. Elevated vancomycin levels would be nephrotoxic and prolong the time for renal recovery. 3. Acute liver injury secondary to ischemic hepatitis and perihepatic hematoma. His liver function tests (LFTs) continue to improve along with his coagulopathy. He has not required any blood products in the past 24 hours. He has been previously dialyzed without systemic heparin. Per the intensive care team, there is a plan to start him on IV heparin today with close monitoring of his complete blood count (CBC). 4. Nutrition. The patient remains on Clinimix and IV fat emulsion. He has been advanced to a renal diet. As he has been very hemodynamically stable, I suggest that we limit the amount of IV intake to prevent fluid overload in this oligoanuric patient. Plan of care is discussed with Dr. Szymanski and Dr. Monson along with the patient and his daughter at bedside.
[2017-04-26] MEDS: SUCRALFATE SUSP 1GM/10ML UD PO SCH ×2 (05:14→12:19)
[2017-04-26] MEDS: DICYCLOMINE 10 MG CAP PO SCH ×4 (05:15→23:55)
[2017-04-26 05:28] LABS: BASO % 0.3 % (0.0-1.0); EOS # 0.3 K/mm3 (0.0-0.50); EOS % 2.8 % (0.0-3.0); LARGE UNSTAINED CELL # 0.4 K/mm3 (0.0-0.4); LARGE UNSTAINED CELL % 3.5 % (0.0-4.0); LYMPH # 1.2 K/mm3 (1.5-4.5); LYMPH % 6.6 % (24.0-44.0); MEAN CORPUSCULAR HEMOGLOBIN 30.1 pg (27.0-33.0); MEAN CORPUSCULAR HGB CONC 33.2 g/dl (32.0-36.5); MEAN CORPUSCULAR VOLUME 90.9 fl (80.0-96.0); MONO # 1.2 K/mm3 (0.0-0.8); MONO % 10.1 % (0.0-5.0); NEUTROPHILS # 9.2 K/mm3 (1.8-7.7); NEUTROPHILS % 76.6 % (36.0-66.0); PLATELET COUNT, AUTOMATED 182 k/mm3 (150-450); RED CELL DISTRIBUTION WIDTH 14.4 % (11.5-14.5)
[2017-04-26 05:31] LABS: INR 1.53
[2017-04-26 05:48] LABS: ALBUMIN 2.3 GM/DL (3.2-5.2); ALBUMIN/GLOBULIN RATIO 0.82 (1.00-1.93); BILIRUBIN,TOTAL 2.2 MG/DL (0.2-1.0); CREATININE FOR GFR 8.23 MG/DL (0.70-1.30); GLOMERULAR FILTRATION RATE 6.9 (>42); TOTAL PROTEIN 5.1 GM/DL (6.4-8.2)
[2017-04-26 05:49] LABS: POTASSIUM SERUM 5.3 MEQ/L (3.5-5.1)
[2017-04-26] MEDS: SENOKOT S TAB PO SCH ×2 (08:45→20:04)
[2017-04-26] MEDS: PANTOPRAZOLE 40MG INJ (PROTONIX) (C9113) IV SCH ×2 (08:45→20:04)
[2017-04-26] MEDS ORDERED: HEPARIN 1,000 UNITS/ML 10ML VIAL (FOR RADIOLOGY& DIALYSIS ONLY) XX ONE (11:15)
[2017-04-26] MEDS ORDERED: HEPARIN SOD (PORCINE) 5000 UNITS/ML VIAL IV PRN (12:45)
[2017-04-26] MEDS ORDERED: HEPARIN DRIP 25,000 UNITS in APPROPRIATE DILUENT 1 EA IV SCH (13:00)
[2017-04-26] MEDS ORDERED: VANCOMYCIN HCL 1,000 MG, VIAL MATE ADAPTER 1 EACH in D5W 250 ML IV ONE (16:00)
--- NOTE | 2017-04-26 18:25 | IPN ---
DATE: 04/26/2017 SUBJECTIVE: The patient is seen and examined at the bedside. Chart has been reviewed. Per nursing, the patient had a low-grade temperature of 100.3 at midnight, 101.1 on 04/24, still on intravenous (IV) vancomycin and meropenem, renal dosing. Yesterday, heparin drip was started. The patient's hemoglobin continued to decrease from a morning hemoglobin of 9.2 to 2156 hemoglobin of 8.7. The patient continues to have tense and distended abdomen. Pain is improved. Complains of insomnia. OBJECTIVE: VITAL SIGNS: Temperature maximum (T-max) 100.3, current temperature 98.2, pulse 99, respiratory rate 24, blood pressure 173/82, 94% on two liters nasal cannula. GENERAL: Awake, alert, and oriented times three. Answers questions appropriately. HEART: S1, S2. Mechanical click noted in the aortic area second right intercostal space. LUNGS: Decreased breath sounds. No rales or wheezing. Decreased at the bases. ABDOMEN: Distended, tense. Positive bowel sounds. Slightly tender in the right upper quadrant with deep palpation. EXTREMITIES: No edema. SKIN: Multiple ecchymotic areas in the abdomen. LABORATORY DATA: White count 12, hemoglobin 9.1, hematocrit 27.5, platelet count 182. Sodium 137, potassium 5.2, chloride 101, bicarbonate 25, BUN 79, creatinine 0.23, glucose 110. INR of 1.53. MICROBIOLOGY: Blood cultures 04/22 no growth. 04/24/2017: IMAGING: CT abdomen increased right pleural effusion now small to moderate. New small left pleural effusion, progressive lobar atelectasis right lower lobe. Slight increase in the size of the subcapsular hematoma, increase in size of the hemoperitoneum. ASSESSMENT AND PLAN: This is a 71-year-old male with a history of mechanical aortic valve on chronic anticoagulation with Coumadin, history of coronary artery disease, left bundle, hypertension, nephrolithiasis, benign prostatic hypertrophy (BPH), chronic kidney disease stage III, baseline creatinine 1.12-1.3, anemia, reflux, solitary pulmonary nodule, status post laparoscopic cholecystectomy 04/18, was sent home with Lovenox for his mechanical valve, developed increasing right upper quadrant abdominal pain and presented to [facility] on Friday, was given [place], and discharged from the emergency room (ER). The patient had continues symptoms with lightheadedness and dizziness, and presented to [facility] ER where he was found to be hypotensive, systolic pressure in the 70s, tachycardic with no fevers, with continued use of losartan and isosorbide at home. The patient was found to have a right upper quadrant subcapsular hematoma measuring 16 x 6 x 17 with some adjacent small hematoma, with some adjacent hemoperitoneum. The patient was admitted under surgical services with initial hemoglobin of 13 decreased to 8.4 through this admission. Received four units of leukocyte-reduced red blood cells. The patient had baseline creatinine of 1.1, became oliguric with hyperkalemia and metabolic acidosis requiring emergent hemodialysis. Liver function tests were worsened due to shock liver, admission AST of 76, peak AST 13,728 with bilirubin peak of 1.3, ammonia at 53, and coagulopathy with INR of 3.3. The patient had hepatic failure. Decision was made to transfer to [facility] for a higher level of care, then developed a fever, maximum temperature of 101.1 on 1610 hours on 04/22. Due to risk of infection and liver failure, the patient was given vancomycin intermittent dosing due to renal failure, as well as intravenous meropenem for gram-negative anaerobic coverage. The patient received full supportive care with fresh frozen plasma (FFP) two units, vitamin K despite mechanical aortic valve for elevated INR of 3.3 and ongoing bleeding. Liver function tests improved over the past 92 hours but still with persistent abdominal distention, pain, and intermittent drop in hemoglobin. Attempts were made for resuming heparin intravenous drip yesterday with decrease in hemoglobin and was discontinued. CURRENT ISSUES: 1. Shock liver with elevated bilirubin, ammonia, coagulopathy requiring supportive care with vitamin K, fresh frozen plasma and lactulose. Improving. Slight increase in subcapsular hematoma on repeat CT abdomen performed due to significant decrease 48 hours ago. Currently still with hemoglobin of 8.7 to 9.1. Monitor for worsening. Heparin drip was discontinued yesterday due to persistent decrease in hemoglobin. Per Dr. Alegre, liver transplant structural biologist at [facility], his recommendations are to continue with supportive care for the liver failure. If needed for active bleeding and coagulopathy, may give vitamin K, fresh frozen plasma (FFP), antibiotics for fevers, due to increased risk of infection with hepatic failure and shock liver, and blood transfusions for anemia, platelet transfusion only if severe thrombocytopenia with ongoing bleeding. Defer to primary service if patient and family still wants transfer to higher level of care at [facility]. Currently improving. 2. Acute renal failure with hyperkalemia. Defer to construction pit worker for dialysis needs. The patient had emergent dialysis due to metabolic acidosis, hyperkalemia , fluid overload secondary to acute tubular necrosis (ATN) and dysautoregulation with angiotensin II receptor blockers (ARB), severe hypotension on admission due to nitrates and ARB being taken at home by the patient. The patient appears to be clinically stable with resolution of the metabolic acidosis and fluid overload, saturating three liters nasal cannula currently. 3. Acute hypoxic respiratory failure, on three liters nasal cannula secondary to abdominal distention, pleural effusion, fluid overload from renal failure and sepsis. No emergent requirement for intubation. 4. Acute blood loss anemia secondary to large subcapsular hematoma measuring 15 x 6 x 17 cm secondary to anticoagulation usage for his mechanical aortic valve status post laparoscopic cholecystectomy. Status post four units of leukocyte-reduced red blood cell transfusion and two units of fresh frozen plasma for emergent reversal of his coagulopathy with international normalized ratio (INR) of 3.3 secondary to shock liver and hepatic failure. Anticoagulation for his aortic valve has been placed on hold. The patient's hemoglobin had dropped yesterday with heparin intravenous drip. Hemoglobin was 13, lowest was 8.4, yesterday 8.7. The patient did receive four units of leukocyte-reduced red blood cells and fresh frozen plasma two units. Repeat CT abdomen showed slight increase in subcapsular hematoma. Hold off on anticoagulation until subcapsular hematoma has completely resolved, stable hemoglobin and hematocrit, and not coagulopathic with stable INR. 5. Respiratory distress and hypoxia requiring supplemental oxygen, currently three liters due to increasing abdominal distention from subcapsular hematoma, fluid overload from renal failure, managed by nephrology. Pulmonary critical care has been consulted. He appears to be saturating well 98% on three liters nasal cannula. Chest x-ray is unchanged with bilateral small effusions. No indication for intubation. 6. Mechanical aortic valve. Monitor the patient's active bleeding. Defer to resident engineer for resumption of heparin drip. The patient has been made aware of risks of emboli and cerebrovascular accident (CVA). The patient has been made aware of the risks. Unfortunately, anticoagulation needs to be held until he is better stabilized and hemoglobin and hematocrit remain stable with normal INR and no signs of active bleeding. 7. Nutrition. Social Services Assistant consult. Managed by primary service. 8. History of coronary artery disease with complaints of shortness of breath with troponin leak secondary to severe critical illness. 9. Reflux, on proton pump inhibitor (PPI). 10. Hyperlipidemia. Statins are held due to liver failure. 11. Insomnia. Avoid benzodiazepines due to liver failure. 12. Shock liver with hepatic failure, coagulopathy, elevated ammonia levels, hyperbilirubinemia and severe transaminitis secondary to severe hypotension on presentation and large subcapsular hematoma. Currently improving with supportive care with FFP, vitamin K. Lactulose as needed for elevated ammonia levels, and antibiotics for fevers. 12. Fevers. Most likely secondary to hematoma, due to shock liver, multiorgan failure with respiratory distress and kidney failure requiring hemodialysis. Patient has been given empiric antibiotics. Blood cultures remain negative so far. Meropenem for gram-negative anaerobic coverage and gram-positive coverage with intermittent vancomycin that is renally dosed per nephrology. Pharmacy to keep levels below 20. 13. Chronic left bundle branch block. Stable. 14. Diet: Per hand former. 15. Deep vein thrombosis (DVT) prophylaxis. Venodyne compression stockings. MTDD
[2017-04-26] MEDS: MEROPENEM INJ 1 GM in D5W MINI-BAG PLUS 100 ML IV SCH (20:04)
[2017-04-26 20:25] LABS: INR 1.33
--- NOTE | 2017-04-26 22:45 | IPN ---
DATE OF SERVICE: 04/26/2017 SUBJECTIVE: The patient was seen and examined at the bedside in the intensive care unit (ICU) today morning. Patient's and daughter were also present at the bedside. Patient is hemodynamically stable at this time. He is not requiring any pressors. He continues to be oliguric at this time. Urine output is less than 100 mL overnight. Patient's total parenteral nutrition has been stopped at this time. He has been started on renal diet. His hemoglobin is stable at this time. REVIEW OF SYSTEMS: Patient reports a small fever spike last night at 100.3 degrees Fahrenheit. He denies any chest pain. He does report some shortness of breath and mild wheezing. Patient reports abdominal distention and pain. He denies any diarrhea or constipation. Patient denies any nausea or vomiting at this time. He also reports pain in the right upper quadrant and right side of the chest. Rest of review of systems is negative. OBJECTIVE: Vital signs: Temperature is 98.8 degrees Fahrenheit. Blood pressure is 168/79. Pulse is 89. Respiratory rate of 22, saturating 98% on nasal cannula at 2 liters. Intake and output: Urine output recorded as 101 mL yesterday, 85 mL so far today. He is 2.4 liters positive yesterday and 455 mL positive today since overnight. PHYSICAL EXAMINATION: General: Patient is awake, alert, oriented times three lying in bed in mild respiratory distress. Head and neck exam: Extraocular muscles intact. Pupils equally round and reactive to light. Mucous membranes are moist. Neck is supple. I could not appreciate jugular venous distention (JVD) because patient has a right internal jugular (IJ) temporary hemodialysis catheter and left IJ triple-lumen catheter. Cardiovascular: S1, S2, regular rate. No murmur, rub or gallop. Respiratory: Decreased breath sounds at the bases. Decreased vocal resonance at the bases. Patient has mild wheezing and mild expiratory rhonchi at the bases and midlung zones as well. Abdomen: Grossly distended, tense. Old laparoscopic surgical incision sites are covered with dressings. Patient has some bruises at the abdomen and is tender to deep palpation. There is positive abdominal wall edema as well. Genitourinary: Patient has an indwelling Clayton catheter and there is hardly any urine in the Clayton bag at this time. Musculoskeletal: There is no clubbing or cyanosis. Patient has very trace edema of the bilateral lower extremities. Central nervous system: No focal neurological deficit. Power is 5/5 in bilateral upper extremities. Psychiatric: Patient is slightly anxious, otherwise appropriate and follows commands. Skin: No rashes or ulcerations, but patient does have ecchymosis and bruises in the abdomen. LABORATORY REVIEW: CBC showed a WBC of 12, hemoglobin 9.1, platelets 182. BMP showed sodium 137, potassium 5.3, chloride 101, bicarbonate 25, BUN 79, creatinine 8.2, GFR is 6.9, calcium 7, total bilirubin 2.2, AST 390, which is better than yesterday. ALT is 977, which is better than yesterday as well. Alkaline phosphatase is 278. Albumin is 2.3. Random vancomycin level is 18.6. Microbiology: Blood cultures sent on 04/22 are negative. IMAGING: CAT scan of the abdomen and pelvis done on 04/24/2017 shows increased right pleural effusion, progressive lobar atelectasis in the right lower lobe, slight increase in the size of subcapsular hematoma and increase in size of hemoperitoneum. MEASUREMENTS: Patient got the CVP done today morning, which was 14. Intra-abdominal pressure monitored through the bladder pressure was 19. CURRENT INPATIENT MEDICATIONS: Patient's medications were all reviewed by me. He has been started on heparin drip. Total parenteral nutrition (TPN) has been stopped. He continues to be on intravenous (IV) meropenem. I ordered a dose of vancomycin after hemodialysis today. He continues to be on morphine as needed. He is on Protonix 40 mg IV twice a day. I stopped his Carafate because of risk of toxicity in acute renal failure. ASSESSMENT: 71-year-old male with acute renal failure secondary to hemorrhagic shock and shock liver as well. PLAN: 1. Acute renal failure secondary to acute tubular necrosis secondary to hemorrhagic shock. Patient is requiring hemodialysis. He was dialyzed 2 days ago. I would do another session of hemodialysis today. Since patient is fluid overloaded and has a high CVP, I will try to do an ultrafiltration of 2 kg as tolerated by his blood pressure. Patient is still oliguric at this time and he has a high intra-abdominal pressure as well. Try to maintain a mean arterial pressure (MAP) of more than 70 at this time for renal perfusion. 2. Hemorrhagic shock. Patient's hemoglobin is stable at this time. He is not requiring any more blood transfusions at this time. He is status post 4 units of packed red blood cells (PRBC) and 3 fresh frozen plasma (FFP) during this admission. Hemoglobin is stable at 9.1, which is acceptable. Continue to monitor serial complete blood count (CBC). 3. Shock liver secondary to hemorrhagic shock and ischemia secondary to subcapsular hematoma. Patient's liver function is improving. AST, ALT and alkaline phosphatase are getting better. However, total bilirubin continues to be high. Continue to monitor the improvement of liver function. Avoid nephrotoxic and hepatotoxic medications at this time. 4. Hemoperitoneum. I got the patient's abdominal pressure checked. It was 19 at this time. I would continue to monitor the abdominal pressure daily. That is why I am going to continue the Clayton at this time even though patient is oliguric. I discussed the patient's current status with the surgical team as well. No further surgical intervention or drainage is necessary at this time. Continue to monitor for now. 5. Protein calorie malnutrition. Patient was nothing by mouth for long time. He was on total parenteral nutrition (TPN) yesterday. TPN was stopped last night. He is tolerating the renal diet at this time. 6. Fever spikes. Fever spikes are most likely secondary to hemoperitoneum. Cultures are negative so far. Patient is currently on intravenous (IV) vancomycin and meropenem. Vancomycin dose is being adjusted by nephrology. Patient will get another dose of vancomycin after hemodialysis today. 7. Shortness of breath and fluid overload. Patient's CVP is 14. He has hemoperitoneum, which is elevating the diaphragms and he has a large subcapsular hematoma which is elevating the right hemidiaphragm. I would dialyze the patient and try to remove about 2 liters of fluid, which would help improve his shortness of breath. 8. 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 Patient's anticoagulation was on hold because of subcapsular hematoma, but I see the patient has been restarted on heparin. Coumadin is still on hold. Rest of the management is as per primary team. The plan of care was discussed with the patient's and with patient's RN at the bedside. I also discussed the case with the surgical service, Dr. Norman. I spent a total of 45 minutes in the critical care of this patient in the intensive care unit (ICU). That does not include the reevaluation of this patient during hemodialysis procedure today in the afternoon.
[2017-04-27] VITALS (7 sets, daily range): BP systolic 149–162; BP diastolic 65–77
[2017-04-27] MEDS: MORPHINE 4 MG/ML 1ML SYRINGE IV PRN ×2 (00:03→22:39)
[2017-04-27] MEDS: DICYCLOMINE 10 MG CAP PO SCH ×3 (05:24→17:29)
[2017-04-27 05:51] LABS: BASO % 0.4 % (0.0-1.0); EOS # 0.3 K/mm3 (0.0-0.50); EOS % 2.4 % (0.0-3.0); LARGE UNSTAINED CELL # 0.5 K/mm3 (0.0-0.4); LARGE UNSTAINED CELL % 4.1 % (0.0-4.0); LYMPH # 1.4 K/mm3 (1.5-4.5); LYMPH % 7.5 % (24.0-44.0); MEAN CORPUSCULAR HEMOGLOBIN 30.7 pg (27.0-33.0); MEAN CORPUSCULAR HGB CONC 33.4 g/dl (32.0-36.5); MEAN CORPUSCULAR VOLUME 91.9 fl (80.0-96.0); MONO # 1.3 K/mm3 (0.0-0.8); MONO % 10.8 % (0.0-5.0); NEUTROPHILS # 8.9 K/mm3 (1.8-7.7); NEUTROPHILS % 74.8 % (36.0-66.0); PLATELET COUNT, AUTOMATED 162 k/mm3 (150-450); RED CELL DISTRIBUTION WIDTH 14.3 % (11.5-14.5); WHITE BLOOD COUNT 11.8 K/mm3 (4.0-10.0)
[2017-04-27 06:12] LABS: ALBUMIN 2.2 GM/DL (3.2-5.2); ALBUMIN/GLOBULIN RATIO 0.76 (1.00-1.93); BILIRUBIN,TOTAL 2.1 MG/DL (0.2-1.0); CALCIUM LEVEL 6.8 MG/DL (8.8-10.2); CREATININE FOR GFR 7.32 MG/DL (0.70-1.30); GLOMERULAR FILTRATION RATE 7.9 (>42); POTASSIUM SERUM 4.9 MEQ/L (3.5-5.1); TOTAL PROTEIN 5.1 GM/DL (6.4-8.2)
[2017-04-27] MEDS: PANTOPRAZOLE 40MG INJ (PROTONIX) (C9113) IV SCH ×2 (08:40→20:01)
[2017-04-27] MEDS: SENOKOT S TAB PO SCH ×2 (08:41→20:01)
[2017-04-27 09:36] LABS: MAGNESIUM LEVEL 2.2 MG/DL (1.8-2.4); PHOSPHORUS LEVEL 4.2 MG/DL (2.5-4.9)
[2017-04-27 10:30] LABS: INR 1.24
[2017-04-27 10:59] LABS: FIBRINOGEN 575 MG/DL (221-452)
[2017-04-27] MEDS ORDERED: MEROPENEM INJ 500 MG in D5W MINI-BAG PLUS 100 ML IV SCH (11:00)
[2017-04-27] MEDS ORDERED: HEPARIN SOD (PORCINE) 5000 UNITS/ML VIAL IV PRN (11:45)
--- NOTE | 2017-04-27 13:39 | IPN ---
DATE: 04/27/2017 SUBJECTIVE: The patient's hemoglobin and hematocrit continues to waiver without intervention. Still with abdominal distention and tenderness, unchanged from before. Improved shortness of breath, saturating at 96 on 2 liters. Denies any chest pain, pressure or tightness, lightheadedness, or dizziness. OBJECTIVE: VITAL SIGNS: Temperature 97.5, pulse 83, respiratory rate 20, blood pressure 162/77, 96% on 2 liters nasal cannula. GENERAL: Awake, alert, and oriented. Answers questions appropriately. HEENT: Extraocular muscles are intact. Pupils are round and reactive. Moist mucous membranes. Neck is supple. Right IJ in place. Left IJ triple lumen in place. HEART: S1, S2. Sinus rhythm. No murmurs, rubs or gallops. LUNGS: Diminished breath sounds and occasional wheezing and rhonchi. ABDOMEN: Distended, tense. Tender to deep palpation. Positive abdominal wall edema. Indwelling Clayton catheter. Oliguric. EXTREMITIES: Trace edema in the lower extremities. SKIN: Multiple ecchymosis and bruising in the abdomen. LABORATORY DATA: Hemoglobin 8.8, previously 9.1, hematocrit 26, platelet count of 162, AST and ALT improved to 199 and 639. INR 1.33 yesterday. ASSESSMENT AND PLAN: This is a 71-year-old male with a history of mechanical aortic valve on chronic anticoagulation with Coumadin, history of coronary artery disease, left bundle, hypertension, nephrolithiasis, benign prostatic hypertrophy (BPH), chronic kidney disease stage III, baseline creatinine 1.1 to 1.3, anemia, reflux, solitary pulmonary nodule, status post laparoscopic cholecystectomy 04/18, was sent home with Lovenox for his mechanical valve, developed increasing right upper quadrant abdominal pain and presented to [facility] Emergency Room on Friday, was given [place], and discharged from the emergency room (ER). The patient continued to have symptoms with progressive lightheadedness and dizziness, and presented to [facility] emergency room and was found to be hypotensive, systolic pressure in the 70s, tachycardic with no fevers, with continued use of losartan and isosorbide at home. CT of the abdomen and pelvis showed subcapsular hematoma measuring 16 x 6 x 17 cm with adjacent hemoperitoneum and admitted under surgical services with initial hemoglobin of 13, decreased go 8.4 through this admission and received 4 units of leukocyte-reduced red blood cells. Fresh frozen plasma for INR of 3.3. Was found to have acute kidney injury and herpetic failure. The patient's baseline creatinine 1.1 with oliguric, hyperkalemia and with metabolic acidosis requiring emergent hemodialysis. The patient continued to have abnormal liver function tests, thought to be secondary to shock liver. He then developed a fever of 101 on 04/22/2017 and due to risk of infection and liver failure, the patient was given empiric IV antibiotics for gram-positive and gram-negative and anaerobic coverage. The patient did receive fresh frozen plasma and vitamin K despite mechanical aortic valve due to INR of 3.3 and ongoing liver bleeding with increased bleed on repeat CT of the abdomen and pelvis and decreasing hemoglobin after heparin drip was restarted. IMPRESSION: 1. Shock liver with elevated bilirubin, ammonia, coagulopathy requiring supportive care with vitamin K, fresh frozen plasma and lactulose. Improving. Currently in the 100s. Slight increase in subcapsular hematoma. Repeat CT performed due to decrease in hemoglobin and hematocrit, that is from two hours ago. Hemoglobin remains at 8.7 to 9.1. Monitor for worsening anemia. Heparin drip was discontinued due to persistent decrease in hemoglobin. Per Dr. Alegre, liver transplant saw repairer at [facility], his recommendations are to continue with supportive care for the liver failure. If needed for active bleeding and coagulopathy, may give vitamin K, fresh frozen plasma (FFP), antibiotics for fevers, due to increased risk of infection with hepatic failure and shock liver, and blood transfusions for anemia, platelet transfusion only if severe thrombocytopenia with ongoing bleeding. Defer to primary service if patient and family still want transfer to higher level of care at [facility]. Currently improving. 2. Acute renal failure with hyperkalemia. Defer to clerk of works for dialysis needs. The patient had emergent dialysis due to metabolic acidosis, hyperkalemia , fluid overload secondary to acute tubular necrosis (ATN) and dysautoregulation with angiotensin II receptor blockers (ARB), severe hypotension on admission due to nitrates and ARB being taken at home by the patient, as well as blood loss into the subcapsular liver hematoma. The patient appears to be clinically stable with resolution of hypotension, metabolic acidosis and fluid overload. Currently saturating well at 96 to 98% on 2 liters nasal cannula. 3. Acute hypoxic respiratory failure, on 2 liters nasal cannula secondary to worsening abdominal distention, previous fluid overload from renal failure and sepsis. No emergent requirement for intubation. 4. Acute blood loss anemia secondary to large subcapsular hematoma measuring 15 x 6 x 17 cm secondary to anticoagulation for his mechanical aortic valve, status post laparoscopic cholecystectomy. Status post 4 units of leukocyte-reduced red blood cell transfusion and 2 units of fresh frozen plasma for emergent reversal of his coagulopathy with international normalized ratio (INR) of 3.3 secondary to shock liver and hepatic failure. Anticoagulation for his aortic valve has been placed on hold. Heparin was started but with decrease in hemoglobin, slightly increase on CT of the abdomen and pelvis of the subcapsular hematoma. The patient did receive 4 units of leukocyte-reduced red blood cells and 2 units of fresh frozen plasma two units. Repeat CT with slight increase in subcapsular hematoma. Hold off on anticoagulation until hemoglobin and hematocrit remain stable and not coagulopathic with stable INR. PER FAMILY REQUEST, Dr. Arminda Ramos, lithographic plate maker fundraising consultant was consulted. 5. Respiratory distress and hypoxia requiring supplemental oxygen, currently on 2 liters, managed by pulmonology. Chest x-ray unchanged with bilateral small pleural effusions. No indication for intervention. 6. Mechanical aortic valve. Due to persistent bleed, we will start heparin drip. Slight increase in subcapsular hematoma and decrease in hemoglobin and hematocrit. We will need to wait until the patient's INR is stabilized with no intervention and hemoglobin and hematocrit remains unchanged. 7. Nutrition. Manager Support consult. Managed by primary service. 8. Coronary artery disease with complaints of shortness of breath with troponin leak secondary to severe critical illness. 9. Reflux, on proton pump inhibitor (PPI). 10. Hyperlipidemia. Statins are held due to liver failure. 11. Insomnia. Avoid benzodiazepines due to liver failure. Currently on melatonin. 12. Fevers. Secondary to hematoma, due to shock liver, multiorgan failure with respiratory distress and kidney failure requiring hemodialysis. Patient has been given empiric antibiotics. Blood cultures are negative. Chest x-ray is unchanged. Meropenem for gram-negative coverage, intermittent vancomycin due to dialysis needs for gram-positive coverage. 13. Chronic left bundle branch block. Stable. 14. Diet, per etl database developer. 15. Deep vein thrombosis (DVT) prophylaxis. Venodyne compression stockings. MTDD
[2017-04-27] MEDS: HEPARIN DRIP 25,000 UNITS in APPROPRIATE DILUENT 1 EA IV SCH (13:45)
--- NOTE | 2017-04-27 15:10 | IPN ---
DATE: 04/27/2017 ADDENDUM: Per family, they would like to request a hematology consult. I discussed the case with Dr. Arminda Ramos who will see the patient in consult. No reason to think that the patient has a primary hematological issue but per family request, she has been consulted. She requested for factor eight to be checked. MTDD
[2017-04-27] MEDS: oxyCODONE 5MG TAB PO PRN ×2 (15:37→19:52)
--- NOTE | 2017-04-27 17:04 | CCN ---
DATE: 04/27/2017 CRITICAL CARE PROGRESS NOTE SUBJECTIVE: The patient was seen and examined at the bedside today morning in the intensive care unit (ICU). The patient's was also present at the bedside. Last 24-hour events were noted. The patient was dialyzed yesterday. He tolerated the hemodialysis procedure well. His shortness of breath and wheezing is better as compared with yesterday. I do not see any signs of renal recovery at this time. The patient continues to be oliguric, but he does report that his abdominal bloating is slightly better today. The patient's heparin is on hold at this time because of drop in his hemoglobin. REVIEW OF SYSTEMS: The patient denies any fevers, chills, rigors, headache, chest pain. He does report mild shortness of breath. He reports abdominal distention and bloating, but he is able to tolerate his diet in small amounts, and he reports early satiety. He denies any constipation. He moved his bowels yesterday. He denies any muscle aches and pains. Rest of review of systems is negative. OBJECTIVE: VITAL SIGNS: Temperature is 97.8 degrees Fahrenheit, blood pressure 136/74, pulse is 83, respiratory rate of 16, saturating 97% on nasal cannula at two liters. INTAKE AND OUTPUT: Urine output recorded as only 149 mL yesterday, 52 mL so far today since overnight. Ultrafiltration with hemodialysis was two liters. Weight in the bed scale is 103 kg. The patient is 268 mL positive so far according to his intake and output. PHYSICAL EXAMINATION: GENERAL: The patient is awake, alert, and oriented times three, lying in bed. His respiratory distress is better as compared with yesterday. HEAD/NECK: Extraocular muscles intact. Pupils equal, round, and reactive to light. Mucous membranes are moist. The patient has a right internal jugular (IJ) temporary hemodialysis catheter and he has a left IJ triple-lumen catheter. CARDIOVASCULAR: S1, S2. Regular rate. No murmur, rub, or gallop. RESPIRATORY: Decreased breath sounds at the bases. The patient has decreased vocal resonance at the right base, and he has actually bronchial breath sounds on the right base. There is no wheezing at this time. ABDOMEN: Soft, grossly distended. There is ecchymosis all over his abdomen. Old laparoscopic surgical incision sites are covered with dressing. The patient has a mild amount of tenderness on deep palpation, and mild amount of rebound tenderness as well. GENITOURINARY: The patient has an indwelling Clayton catheter at this time. There is no urine in the bag at this time. Bladder pressure was checked again today, and it was 16. MUSCULOSKELETAL: No clubbing or cyanosis. No edema of the extremities. Pulses are 2+. CENTRAL NERVOUS SYSTEM (INTERNAL MEDICINE DOCTOR): No focal neurological deficit. Power is 5/5 in bilateral upper extremities. PSYCHIATRIC: The patient has a normal mood and affect today. SKIN: No rashes or ulcerations except from ecchymosis on the abdomen. LABORATORY DATA: CBC showed a WBC 11.8, hemoglobin 8.8, platelets are 162. Fibrinogen is 575. D-dimer is more than 4000. PT is 15.8, INR is 1.2. BMP showed sodium 137, potassium 4.9, chloride 100, bicarbonate 26, BUN 70, creatinine 7.3, glucose 115, calcium is 6.8. Phosphorus 4.2, magnesium 2.2, total bilirubin 2.1, AST 199 which is better than yesterday. ALT is 639 which is improving. Alkaline phosphatase is 244 which is also better than yesterday. Albumin level is 2.2. Random vancomycin level was 18.6 yesterday. CURRENT INPATIENT MEDICATIONS: The patient's medications are all reviewed by me. His meropenem has been changed to 500 mg IV every 24 hours. Heparin has been on hold. I stopped his Sucralfate yesterday because of renal failure. There is no other change in the medications today as compared with yesterday. ASSESSMENT: A 71-year-old male status post laparoscopic cholecystectomy. Patient admitted to intensive care unit (ICU) this time with acute renal failure, hemorrhagic shock, and shock liver because of subcapsular hematoma in the liver. PLAN: 1. Acute renal failure: It is secondary to acute tubular necrosis caused by hemorrhagic shock. The patient is still hemodialysis dependent. He continues to be oliguric. Last hemodialysis session was yesterday. He tolerated the hemodialysis procedure well. He will be evaluated on day-to-day basis for need of hemodialysis. No urgent need of hemodialysis today. The patient will probably need another session of hemodialysis tomorrow morning. Continue to monitor intake and output; however, the patient is oliguric at this time. I am going to remove the Clayton catheter and we will monitor the urine output with a urinal. 2. Shock liver secondary to hemorrhagic shock and ischemia secondary to subcapsular hematoma: The patient's liver function continues to improve. Aspartate transaminase (AST), alanine transaminase (ALT), and alkaline phosphatase are getting better. Avoid nephrotoxic and hepatotoxic medications. Heparin anticoagulation is on hold at this time. 3. Hemoperitoneum: The patient's intra-abdominal pressure was 19 yesterday. It is 16 today. He is tolerating the diet. Continue the close monitoring at this time. No intervention is planned from surgical standpoint at this time. The rest of the management is as per surgical service. 4. Protein calorie malnutrition: The patient's albumin is low. It is secondary to recent shock liver and decreased oral intake from the shock. He just started tolerating his regular diet. Total parenteral nutrition (TPN) was stopped two days ago. Continue to encourage increased oral intake. 5. Fever spikes: His fevers are secondary to hemoperitoneum. Cultures are negative so far. He is on meropenem. I have changed the dose to 500 mg IV every 24 hours because of acute renal failure and hemodialysis dependency. 6. Shortness of breath and fluid overload: The patient was dialyzed yesterday. Two liters of fluid were removed. His shortness of breath is improved today. The patient will be evaluated tomorrow as well for any need of hemodialysis and further ultrafiltration. 7. History of mechanical aortic valve: The patient was briefly started on heparin, but then there was a drop in his hemoglobin and slight increase in the size of the hematoma. Heparin is still on hold. The patient's family is requesting hematology consult. Hematology has been called on board. Rest of the management is as per hematology service and primary team. 8. Hypocalcemia: It is secondary to hypoalbuminemia. The patient's corrected calcium is around 8.2. No need of IV calcium administration at this time. The plan of care was discussed with the patient's and patient's nurse at the bedside, and with the primary hospitalist, Dr. Sylvia Guerra. Total critical care time spent in the management of this patient in ICU was 45 minutes.
[2017-04-27] MEDS: MEROPENEM INJ 500 MG in D5W MINI-BAG PLUS 100 ML IV SCH (20:01)
[2017-04-27 20:19] LABS: MEAN CORPUSCULAR HEMOGLOBIN 30.8 pg (27.0-33.0); MEAN CORPUSCULAR HGB CONC 33.4 g/dl (32.0-36.5); MEAN CORPUSCULAR VOLUME 92.3 fl (80.0-96.0); RED CELL DISTRIBUTION WIDTH 14.4 % (11.5-14.5); WHITE BLOOD COUNT 14.3 K/mm3 (4.0-10.0)
[2017-04-28] VITALS (8 sets, daily range): BP systolic 149–169; BP diastolic 68–84
[2017-04-28] MEDS: MORPHINE 4 MG/ML 1ML SYRINGE IV PRN (01:39)
[2017-04-28] MEDS: DICYCLOMINE 10 MG CAP PO SCH ×5 (05:04→23:09)
[2017-04-28] MEDS: HEPARIN DRIP 25,000 UNITS in APPROPRIATE DILUENT 1 EA IV SCH ×2 (05:05→23:03)
[2017-04-28 05:26] LABS: BASO # 0.1 K/mm3 (0.0-0.2); BASO % 0.5 % (0.0-1.0); EOS # 0.3 K/mm3 (0.0-0.50); EOS % 1.8 % (0.0-3.0); LARGE UNSTAINED CELL # 0.5 K/mm3 (0.0-0.4); LARGE UNSTAINED CELL % 2.9 % (0.0-4.0); LYMPH # 1.4 K/mm3 (1.5-4.5); LYMPH % 5.9 % (24.0-44.0); MEAN CORPUSCULAR HEMOGLOBIN 30.2 pg (27.0-33.0); MEAN CORPUSCULAR HGB CONC 32.5 g/dl (32.0-36.5); MEAN CORPUSCULAR VOLUME 92.9 fl (80.0-96.0); MONO # 1.2 K/mm3 (0.0-0.8); MONO % 7.7 % (0.0-5.0); NEUTROPHILS # 13.1 K/mm3 (1.8-7.7); NEUTROPHILS % 81.2 % (36.0-66.0); PLATELET COUNT, AUTOMATED 197 k/mm3 (150-450); RED CELL DISTRIBUTION WIDTH 14.6 % (11.5-14.5); WHITE BLOOD COUNT 16.2 K/mm3 (4.0-10.0)
[2017-04-28 05:37] LABS: INR 1.28
[2017-04-28 06:07] LABS: ALBUMIN 2.3 GM/DL (3.2-5.2); ALBUMIN/GLOBULIN RATIO 0.7 (1.00-1.93); BILIRUBIN,TOTAL 2.4 MG/DL (0.2-1.0); CREATININE FOR GFR 9.44 MG/DL (0.70-1.30); GLOMERULAR FILTRATION RATE 5.9 (>42); POTASSIUM SERUM 4.9 MEQ/L (3.5-5.1); TOTAL PROTEIN 5.6 GM/DL (6.4-8.2)
[2017-04-28] MEDS: SENOKOT S TAB PO SCH ×2 (09:07→20:12)
[2017-04-28] MEDS: PANTOPRAZOLE 40MG INJ (PROTONIX) (C9113) IV SCH ×2 (09:08→20:13)
[2017-04-28] MEDS ORDERED: HEPARIN 1,000 UNITS/ML 10ML VIAL (FOR RADIOLOGY& DIALYSIS ONLY) XX ONE (10:00)
[2017-04-28] MEDS: CARVedilol 3.125 MG TAB PO SCH ×2 (12:28→20:12)
--- NOTE | 2017-04-28 13:14 | IPN ---
DATE: 04/28/2017 SUBJECTIVE: Patient was seen and examined at the bedside today morning in the intensive care unit (ICU) during hemodialysis procedure. Patient is tolerating the hemodialysis procedure well. Last 24-hour events and vitals were noted. Patient continues to be oliguric at this time. Clayton catheter was removed yesterday. Patient reports that he was able to urinate himself, but there is very slight urine output. He is tolerating the diet at this time. He denies any nausea or vomiting. REVIEW OF SYSTEMS: The patient denies any fevers, chills, rigors, headache, chest pain. He does report mild shortness of breath. Patient reports abdominal distention and bloating, and decreased appetite, however he denies any nausea or vomiting and he is moving his bowels. The rest of review of systems is negative. OBJECTIVE: VITAL SIGNS: Temperature is 99.3 degrees Fahrenheit, blood pressure 149/75, pulse is 110, respiratory rate of 20, saturating 94% on room air. INTAKE AND OUTPUT: Urine output recorded as 67 mL yesterday, 100 mL so far today since overnight. Weight on the bed scale is 109 kg. PHYSICAL EXAMINATION: GENERAL: The patient is awake, alert, and oriented times three, lying in bed, getting hemodialysis done. HEAD/NECK: Extraocular muscles intact. Pupils equally round and reactive to light. Mucous membranes are moist. He has a right internal jugular (IJ) temporary hemodialysis catheter which is being used for dialysis. Left IJ has a triple-lumen catheter. CARDIOVASCULAR: S1, S2. Regular rate. No murmur, rub, or gallop. RESPIRATORY: Decreased breath sounds at the right base and decreased vocal resonance at the right base. Otherwise, no rales or rhonchi. ABDOMEN: Soft, grossly distended. Multiple ecchymosis all over the abdomen. There are Steri-Strip dressings over the laparoscopic surgical sites. There is mild rebound tenderness on the abdomen. GENITOURINARY: Clayton is out at this time. MUSCULOSKELETAL: No clubbing or cyanosis. No edema of the extremities. Pulses are 2+. CENTRAL NERVOUS SYSTEM (HOE WORKER): No focal neurological deficit. Power is 5/5 in all extremities. PSYCHIATRIC: Patient is slightly agitated and anxious today. SKIN: No rashes or ulcers except ecchymosis on the abdomen. LABORATORY REVIEW: CBC showed a WBC of 16.2, hemoglobin 9.2, platelets are 197. BMP showed sodium 134, potassium 4.9, chloride 97, bicarbonate 22, BUN 101, creatinine 9.4, calcium is 7. AST 142, ALT 436, alkaline phosphatase 235, albumin is 2.3. CURRENT INPATIENT MEDICATIONS: The patient's medications were all reviewed by me. Ambien has been stopped now. I have started the patient on carvedilol 3.125 mg by mouth twice a day for hypertension and tachycardia. ASSESSMENT: 71-year-old male status post laparoscopic cholecystectomy. Patient admitted to the intensive care unit (ICU) at this time because of acute renal failure, hemorrhagic shock, and shock liver because of subcapsular hematoma in the liver. PLAN: 1. Acute oliguric renal failure. Patient continues to be oliguric. It is secondary to ATN caused by hemorrhagic shock. Patient is still dialysis dependent. He is getting his hemodialysis done today at this time. Clayton catheter was removed. Continue to monitor the urine output at this time. 2. Shock liver secondary to hemorrhagic shock and ischemia secondary to subcapsular hematoma: Liver functions continues to improve. Heparin has been restarted since yesterday. Continue to monitor for a drop in hemoglobin. 3. Hemoperitoneum. The patient's intra-abdominal pressure was 16 yesterday. He reports that his bloating is improving. He is tolerating the diet. Heparin has been cautiously restarted. Continue to monitor for any worsening of the symptoms. 4. Shortness of breath and fluid overload. Patient is being dialyzed today. I shall try to remove about 2.5 liters of fluid as tolerated by his blood pressure. 5. History of mechanical aortic valve. Patient has been restarted on heparin anticoagulation. He will be bridged to Coumadin after two days. 6. Fever spikes. Patient's temperature is controlled at this time. Continue the empiric meropenem at this time. Fever is most likely secondary to hemoperitoneum. 7. Hyponatremia. It is most likely secondary to hypervolemia. Hemodialysis and ultrafiltration will help improve hyponatremia. The plan of care was discussed with the patient's and his at the bedside. Total critical care time spent in the management of this patient today in ICU was 35 minutes. That does not include the evaluation of the patient and adjustment of his dialysis regimen.
[2017-04-28] MEDS: MORPHINE 2 MG/ML 1ML SYRINGE IV PRN ×2 (13:36→23:09)
[2017-04-28 15:49] LABS: VANCOMYCIN RANDOM 20.5 UG/ML
[2017-04-28] MEDS: WARFARIN SOD 5 MG TAB PO SCH (17:40)
[2017-04-28] MEDS: MEROPENEM INJ 500 MG in D5W MINI-BAG PLUS 100 ML IV SCH (20:11)
[2017-04-28] MEDS: oxyCODONE 5MG TAB PO PRN (20:13)
[2017-04-29] VITALS (11 sets, daily range): BP systolic 98–151; BP diastolic 54–87
[2017-04-29] MEDS: oxyCODONE 5MG TAB PO PRN (04:22)
[2017-04-29 05:01] LABS: BASO # 0.1 K/mm3 (0.0-0.2); BASO % 0.4 % (0.0-1.0); EOS # 0.2 K/mm3 (0.0-0.50); EOS % 0.9 % (0.0-3.0); LARGE UNSTAINED CELL # 0.5 K/mm3 (0.0-0.4); LARGE UNSTAINED CELL % 3.3 % (0.0-4.0); LYMPH # 0.8 K/mm3 (1.5-4.5); LYMPH % 4.7 % (24.0-44.0); MEAN CORPUSCULAR HEMOGLOBIN 30.7 pg (27.0-33.0); MEAN CORPUSCULAR HGB CONC 33.4 g/dl (32.0-36.5); MONO # 1.1 K/mm3 (0.0-0.8); MONO % 6.8 % (0.0-5.0); NEUTROPHILS # 13.7 K/mm3 (1.8-7.7); NEUTROPHILS % 83.9 % (36.0-66.0); PLATELET COUNT, AUTOMATED 235 k/mm3 (150-450); RED CELL DISTRIBUTION WIDTH 14.4 % (11.5-14.5); WHITE BLOOD COUNT 16.3 K/mm3 (4.0-10.0)
[2017-04-29 05:09] LABS: INR 1.42
[2017-04-29 05:41] LABS: ALBUMIN 2.2 GM/DL (3.2-5.2); ALBUMIN/GLOBULIN RATIO 0.65 (1.00-1.93); BILIRUBIN,TOTAL 2.5 MG/DL (0.2-1.0); CALCIUM LEVEL 7.4 MG/DL (8.8-10.2); CREATININE FOR GFR 8.4 MG/DL (0.70-1.30); GLOMERULAR FILTRATION RATE 6.7 (>42); MAGNESIUM LEVEL 2.2 MG/DL (1.8-2.4); POTASSIUM SERUM 5.1 MEQ/L (3.5-5.1); TOTAL PROTEIN 5.6 GM/DL (6.4-8.2)
[2017-04-29] MEDS: DICYCLOMINE 10 MG CAP PO SCH ×3 (05:51→17:07)
[2017-04-29] MEDS: PANTOPRAZOLE 40MG INJ (PROTONIX) (C9113) IV SCH ×2 (09:03→22:06)
[2017-04-29] MEDS: SENOKOT S TAB PO SCH ×2 (09:03→22:06)
[2017-04-29] MEDS: METHOCARBAMOL 500 MG TAB PO SCH ×2 (09:04→22:06)
[2017-04-29] MEDS: CARVedilol 3.125 MG TAB PO SCH ×2 (09:04→21:00)
[2017-04-29] MEDS ORDERED: HEPARIN 1,000 UNITS/ML 10ML VIAL (FOR RADIOLOGY& DIALYSIS ONLY) XX ONE (11:45)
--- NOTE | 2017-04-29 14:28 | IPN ---
DATE: 04/29/2017 71-year-old gentleman seen at bedside resting a little more comfortably. His is present. We did have a discussion regarding his ongoing treatment. He feels that the abdominal pain is a little better, but he does still have quite a bit of discomfort. Denies headache, lightheaded, dizziness, chest pain, shortness breath, productive sputum, cough or hemoptysis. OBJECTIVE: Temperature is 99.1, pulse is 94, respiratory rate is 20, blood pressure (BP) is 138/87 and SPO2 is 94% on room air. General: The patient appears to be in no acute distress. He is alert, pleasant. HEENT: Unremarkable. Lungs: Clear. Heart: Regular rate and rhythm. Abdomen is distended, slightly tender. Positive bowel sounds. Extremities: No edema. No calf tenderness. LABORATORY DATA: White count 16.3, hemoglobin 8.8 and platelets are 235,000. Sodium 132, potassium 5.1, chloride 97, bicarb 22, anion gap 13, BUN is 90, creatinine is 8.40, glucose is 141, total bilirubin 2.5, AST 129, ALT is 303, alkaline phosphatase 241, albumin is 2.2. ASSESSMENT/PLAN: 1. Acute renal failure likely secondary to hemorrhagic shock. Appreciate Dr. Kingston's input. The patient continues with intermittent hemodialysis. 2. Liver shock secondary to hemorrhagic shock and ischemia related to subcapsular hematoma. LFTs continue to improve each day. Heparin has been restarted. Continue to monitor for drop in his hemoglobin and hematocrit. 3. Anemia. This is acute anemia related to acute blood loss and spacing subcapsular hematoma. Appreciate Dr. Monson's input. 4. Shortness of breath secondary to volume overload. The patient has been dialyzed yesterday. Appreciate Dr. Kingston's input and assistance. 5. History of mechanical aortic valve. Restarted on heparin. Will slowly bridge Coumadin. I had a discussion with Dr. Monson this morning and I agree with his thoughts of starting lower than the patient's initial home dose at 5 mg daily and will monitor his INR for the next few days before making any further adjustments. 6. Intermittent fevers. Continue empiric meropenem. 7. Hyponatremia likely secondary to hypovolemia. He has received hemodialysis yesterday and appreciate nephrology's input. 8. Deep vein thrombosis (DVT) prophylaxis. Again, the patient is on heparin and starting on Coumadin for bridge therapy. DISPOSITION: The patient's prognosis is guarded at this point, but he does show some slow improvement in his liver enzymes and transaminitis and continues to show improvement each day.
[2017-04-29] MEDS ORDERED: DARBEPOETIN 100 MCG/0.5 ML *DIALYSIS* SYRINGE (J0882) IV SCH (15:45)
[2017-04-29] MEDS: HEPARIN DRIP 25,000 UNITS in APPROPRIATE DILUENT 1 EA IV SCH (15:59)
[2017-04-29] MEDS ORDERED: DARBEPOETIN 300 MCG/0.6 ML *DIALYSIS* SYRINGE (J0882) IV SCH (16:18)
[2017-04-29] MEDS: WARFARIN SOD 5 MG TAB PO SCH (17:07)
[2017-04-29] MEDS: MEROPENEM INJ 500 MG in D5W MINI-BAG PLUS 100 ML IV SCH (19:55)
[2017-04-30] VITALS (11 sets, daily range): BP systolic 111–146; BP diastolic 56–82
[2017-04-30] MEDS: MORPHINE 2 MG/ML 1ML SYRINGE IV PRN (00:36)
[2017-04-30] MEDS: DICYCLOMINE 10 MG CAP PO SCH ×4 (00:36→17:56)
--- NOTE | 2017-04-30 06:08 | IPN ---
DATE: 04/29/2017 SUBJECTIVE: Patient was seen and examined at the bedside today morning in the intensive care unit (ICU) during work rounds, and again during the hemodialysis procedure. The patient continues to be oliguric. There are no signs of renal improvement in this time. However, he is otherwise afebrile, hemodynamically stable. The patient is currently on intravenous (IV) heparin which is being bridged to Coumadin. REVIEW OF SYSTEMS: The patient denies any fevers, chills, rigors, headaches, chest pain. He does report mild shortness of breath. He reports abdominal bloating and distention, decreased appetite and early satiety. However, he denies any constipation, and he has been moving his bowels. Rest of review of systems is negative. OBJECTIVE: VITAL SIGNS: Temperature is 97.8 degrees Fahrenheit, blood pressure is 107/59, pulse is 94, respiratory rate of 19, saturating 94% on room air. INTAKE AND OUTPUT: Urine output recorded as 150 mL. Urine output recorded so far since overnight is 10 mL only. Ultrafiltration with hemodialysis was 2.5 liters yesterday. PHYSICAL EXAMINATION: GENERAL: The patient is awake, alert, and oriented times three, lying in bed in no apparent distress. HEAD/NECK: Extraocular muscles intact. Pupils equal, round, and reactive to light. Mucous membranes are moist. He has a right internal jugular (IJ) temporary hemodialysis catheter. CARDIOVASCULAR: S1, S2. Regular rate. No murmur, rub, or gallop. RESPIRATORY: Decreased breath sounds at the right base and decreased vocal resonance at the right base. Otherwise no rales or rhonchi. ABDOMEN: Soft, grossly distended. Multiple ecchymoses all over the abdomen, and there are Steri-Strip dressings over the laparoscopic surgical sites. There is mild rebound tenderness over the abdomen. GENITOURINARY: No hernia. Clayton catheter is out. MUSCULOSKELETAL: No clubbing or cyanosis. No edema of the extremities. Pulses are 2+. CENTRAL NERVOUS SYSTEM (TIE PULLER): No focal neurological deficit. Power is 5/5 in all extremities. PSYCHIATRIC: Patient has slightly depressed mood at this time. LABORATORY DATA: CBC showed a WBC of 16.3, hemoglobin 8.8, platelets are 235. INR is 1.4. PTT is 98.7. BMP showed sodium 132, potassium 5.1, chloride 97, bicarbonate 22, BUN is 90, creatinine 8.4, calcium 7.4, total bilirubin 2.5, as 129, ALT 303, alkaline phosphatase is 241, albumin is 2.2. Random vancomycin level was 20.5 yesterday. CURRENT INPATIENT MEDICATIONS: The patient's medications were all reviewed by me. He continues to be in intravenous (IV) meropenem. On dose or Aranesp 200 mcg IV with hemodialysis was ordered today. There is no other change in the medications today as compared with yesterday, except that he has been started on warfarin 5 mg by mouth daily. ASSESSMENT: A 71-year-old male status post laparoscopic cholecystectomy. He was admitted to the intensive care unit (ICU) because of acute renal failure secondary to hemorrhagic shock and shock liver because of subcapsular hematoma and ischemia. PLAN: 1. Acute oliguric renal failure: The patient continues to be oliguric at this time. No significant urine output. He is requiring hemodialysis. The patient is again getting another session of hemodialysis today. I shall try to remove about two kg of fluid as tolerated by his blood pressure. 2. Shock liver secondary to hemorrhagic shock and ischemic along with subcapsular hematoma: Liver function tests continue to improve. 3. Hemoperitoneum: The patient continues to have abdominal distention and discomfort. Surgery is closely monitoring the patient. The patient is tolerating a diet at this time. 4. Fluid overload and shortness of breath: The patient got 2.5 liters of ultrafiltration done yesterday. The patient will get another two liters removed today as tolerated by his blood pressure. 5. History of mechanical aortic valve: The patient has been restarted on heparin anticoagulation. He was started on Coumadin yesterday. 6. Fever spikes: Because fever is most likely secondary to hemoperitoneum, the patient is currently on meropenem. If he continues to spike fever, then I will start covering him for possible fungal peritonitis as well. 7. Hyponatremia: It is secondary to hypervolemia. Hemodialysis and ultrafiltration will hopefully help with hyponatremia. The plan of care was discussed with the patient and his at the bedside. EDWIN
[2017-04-30 06:25] LABS: INR 1.52
[2017-04-30 06:26] LABS: BASO # 0.1 K/mm3 (0.0-0.2); BASO % 0.4 % (0.0-1.0); EOS # 0.1 K/mm3 (0.0-0.50); EOS % 0.7 % (0.0-3.0); LARGE UNSTAINED CELL # 0.4 K/mm3 (0.0-0.4); LARGE UNSTAINED CELL % 2.2 % (0.0-4.0); LYMPH # 1.1 K/mm3 (1.5-4.5); LYMPH % 4.9 % (24.0-44.0); MEAN CORPUSCULAR HEMOGLOBIN 30.6 pg (27.0-33.0); MEAN CORPUSCULAR VOLUME 92.6 fl (80.0-96.0); MONO # 1.1 K/mm3 (0.0-0.8); MONO % 6.6 % (0.0-5.0); NEUTROPHILS # 13.8 K/mm3 (1.8-7.7); NEUTROPHILS % 85.3 % (36.0-66.0); PLATELET COUNT, AUTOMATED 293 k/mm3 (150-450); RED CELL DISTRIBUTION WIDTH 14.9 % (11.5-14.5); WHITE BLOOD COUNT 16.2 K/mm3 (4.0-10.0)
[2017-04-30 06:30] LABS: ALBUMIN 2.1 GM/DL (3.2-5.2); ALBUMIN/GLOBULIN RATIO 0.48 (1.00-1.93); BILIRUBIN,TOTAL 2.6 MG/DL (0.2-1.0); CALCIUM LEVEL 8.1 MG/DL (8.8-10.2); CREATININE FOR GFR 7.91 MG/DL (0.70-1.30); GLOMERULAR FILTRATION RATE 7.2 (>42); MAGNESIUM LEVEL 2.3 MG/DL (1.8-2.4); POTASSIUM SERUM 4.6 MEQ/L (3.5-5.1); TOTAL PROTEIN 6.5 GM/DL (6.4-8.2)
[2017-04-30 08:08] LABS: FACTOR VIII ACTIVITY 336 % (57-163)
[2017-04-30] MEDS: SENOKOT S TAB PO SCH ×2 (08:26→22:01)
[2017-04-30] MEDS: PANTOPRAZOLE 40MG INJ (PROTONIX) (C9113) IV SCH ×2 (08:26→22:02)
[2017-04-30] MEDS: CARVedilol 3.125 MG TAB PO SCH ×2 (08:26→22:02)
[2017-04-30] MEDS: METHOCARBAMOL 500 MG TAB PO SCH ×2 (08:26→22:02)
--- NOTE | 2017-04-30 08:39 | REP ---
Chest x-ray: Two views. History: Fever. Comparison chest x-ray April 23, 2017. Findings: A right internal jugular venous catheter terminates in the expected location of the superior vena cava. The patient is status post prior median sternotomy. Right hemidiaphragm is somewhat elevated and there is blunting of the right pleural angles again noted consistent with some degree of right pleural effusion unchanged. No new infiltrate is seen. Signed by Twan Mcleod MD 04/30/2017 01:39 P
[2017-04-30] MEDS: HEPARIN DRIP 25,000 UNITS in APPROPRIATE DILUENT 1 EA IV SCH (10:34)
--- NOTE | 2017-04-30 10:52 | IPN ---
DATE: 04/30/2017 71-year-old gentleman seen at bedside. It looks like he is resting more comfortably today. His daughter is here. We did have a discussion regarding his ongoing care. He feels that he is breathing more comfortably. His abdominal pain seems to be a little less than yesterday. Denies any chest pain or productive sputum. He states his bowel movements are regular. He is voiding fine. He denies any blood in his stool or urine. OBJECTIVE: Temperature is 98.5, pulse 93, respiratory rate is 20, blood pressure (BP) 143/82, SPO2 is 92% on more room air. Ins and outs are 905 over 2610 with negative fluid balance of 1705. During dialysis yesterday, they did retrieve 2.5 liters of fluid. Apparently, he did become slightly hypotensive afterwards, but has been doing well this morning with his blood pressures. HEENT: Head is atraumatic, normocephalic. Eyes: Pupils equal and reactive to light and accommodation (TONJA). Throat clear. Neck: Supple. Lungs: Diminished bibasilar breath sounds, otherwise clear. Heart: Regular rate and rhythm. Abdomen is protuberant, soft, nontender. Extremities: No edema. No calf tenderness. LABORATORY DATA: White count 16.2, hemoglobin 8.9 and platelets are 293. Sodium is 133, potassium 4.6, chloride 95, bicarb 24, anion gap 14, BUN is 85, creatinine 7.98, glucose 158, magnesium 2.3, total bilirubin 2.6, AST 120, ALT 213, alkaline phosphatase 214, INR 1.52. Repeat blood cultures pending due to elevated temperature through the night with T-max 101.1. Urinalysis: Trace leukocytes, no nitrites, 22 WBCs. Urine culture is pending at this time. On two-view chest x-ray, he does appear to have a small pleural effusion on the right which appears to be unchanged, no new acute infiltrate. No consolidation. ASSESSMENT/PLAN: 1. Acute renal failure. Likely secondary to hemorrhagic shock. He is showing slow improvement with his renal function. Appreciate Dr. Kingston's input. He had hemodialysis the last 2 days. I will defer further dialysis to Dr. Kingston. He is aware that the patient became hypotensive after dialysis yesterday and will likely be cautious; however, his blood pressure does appear to be good currently. 2. Liver shock secondary to hemorrhagic/hypovolemic shock and ischemia and related subcapsular hematoma. LFTs are improving. 3. Anemia related to acute blood loss. He appears to be stable and requiring no further blood transfusions. 4. Subcapsular abdominal hematoma. Appreciate Dr. Monson's care. 5. Shortness of breath secondary to volume overload with dialysis. He does appear to be improving. Will continue to keep an eye on this. 6. History of mechanical aortic valve replacement. Currently he has been resumed on the heparin drip and bridging to Coumadin. I agree with Dr. Monson's plan to start him on 5 mg daily and monitor his INR daily. Will see how he is doing tomorrow before making any further adjustments 7. Intermittent fevers. Continue on empiric meropenem. Possibly related to atelectasis and encouraging the use of incentive spirometer. 8. Hyponatremia. Will continue to follow. This is most likely related to hypovolemia. Appreciate nephrology's input during dialysis. 9. Deep vein thrombosis (DVT) prophylaxis. Again, the patient is on heparin and being bridged to Coumadin. Continue to monitor closely his hemoglobin/hematocrit (H/H). DISPOSITION: The patient still has a guarded prognosis, but is showing some gradual improvement with his liver enzymes and transaminitis and slow improvement with his creatinine. He is likely going to need some ongoing hemodialysis in the short-term, but I will defer that to Dr. Kingston. Appreciate input from physical therapy and [facility] ([facility]).
[2017-04-30] MEDS ORDERED: LIDOCAINE 2% MDV 20 ML VIAL As Ordered ONE (14:44)
[2017-04-30] MEDS ORDERED: HEPARIN 1,000 UNITS/ML 10ML VIAL (FOR RADIOLOGY& DIALYSIS ONLY) As Ordered ONE (14:44)
[2017-04-30] MEDS: WARFARIN SOD 5 MG TAB PO SCH (17:56)
[2017-04-30] MEDS: MEROPENEM INJ 500 MG in D5W MINI-BAG PLUS 100 ML IV SCH (19:42)
--- NOTE | 2017-04-30 21:33 | IPN ---
DATE: 04/30/2017 SUBJECTIVE: Patient was seen and examined at the bedside today morning in the intensive care unit (ICU). Patient remains hemodynamically stable. Last 24-hour events were noted. Patient had a fever spike last night. Patient remains oliguric. There are no signs of improvement of renal function. He is currently being anticoagulated, and hemoglobin is stable at this time. REVIEW OF SYSTEMS: Patient denies any fever at this time, but he had a fever spike last night. He denies any chills or rigors. Patient denies any chest pain, shortness of breath. Patient still reports abdominal distention and bloating, but he denies any nausea or vomiting, and he is moving his bowels at this time. Rest of review of systems is negative. OBJECTIVE: Vital signs: Temperature is 98.8 degrees Fahrenheit, blood pressure is 142/67, pulse is 81, respiratory rate of 24, saturating 92% on room air. Intake and output: Urine output recorded is 50 mL only since overnight. Ultrafiltration with hemodialysis was 2.5 liters yesterday. Weight in the bed scale is 105.5 kg. PHYSICAL EXAMINATION: GENERAL: Patient is awake, alert, oriented times three, lying in bed. No apparent distress. HEAD AND NECK: Extraocular muscles intact. Pupils equally round and reactive to light. Mucous membranes are moist. Patient has a right internal jugular (IJ) temporary hemodialysis catheter. CARDIOVASCULAR: S1, S2, regular rate. No murmur, rub, or gallop. RESPIRATORY: Decreased breath sounds at the bases, especially on the right side with decreased vocal resonance. ABDOMEN: Soft, distended with tympanitic percussion. Multiple ecchymoses all over the abdomen and Steri-Strips at the recent laparoscopic surgical site. GENITOURINARY: No hernia. No Clayton catheter at this time. MUSCULOSKELETAL: No clubbing or cyanosis. No edema of the extremities. Pulses are 2+. CENTRAL NERVOUS SYSTEM: No focal neurological deficit. Power is 5/5 bilateral upper extremities. PSYCHIATRIC: Patient has depressed mood at this time. LABORATORY REVIEW: CBC showed a WBC of 16.2, hemoglobin 8.9, pulse are 293. PTT is 87. BMP showed sodium 133, potassium 4.6, chloride 95, bicarbonate 24, BUN 85, creatinine is 7.9, calcium 8.1, magnesium 2.3. Total bilirubin 2.6. AST 120, ALT 213, alkaline phosphatase is 214, albumin is 2.1. Microbiology: Repeat blood cultures sent on April 30 are pending. IMAGING: A chest x-ray done today showed elevation of the right hemidiaphragm and blunting of the right pleural angle with right pleural effusion. No infiltrate was seen on the x-ray. CURRENT INPATIENT MEDICATIONS: Patient's medications were all reviewed by me. He continues to be on intravenous (IV) meropenem, which is renally dosed. There is no other change in the medications today as compared with yesterday. ASSESSMENT: A 71-year-old male status post laparoscopic cholecystectomy with acute renal failure and shock liver because of hemorrhagic shock and subcapsular hematoma. PLAN: 1. Acute oliguric renal failure. Patient continues to be oliguric at this time. There is no significant urine output in the last 24 hours. Patient has a temporary hemodialysis catheter in the right IJ. He is supposed to get a tunneled hemodialysis catheter by vascular surgery now. Continue hemodialysis at this time. Next hemodialysis session will be tomorrow. 2. Shock liver secondary to hemorrhagic shock and ischemia long with subcapsular hematoma. Liver function continues to improve. Continue the supportive care at this time. 3. Hemoperitoneum. Patient still has abdominal distention. He has rebound tenderness on exam. Surgery is monitoring the patient as well. Patient is tolerating the diet. 4. Shortness of breath and fluid overload. Patient was dialyzed again yesterday. Ultrafiltration was done. Shortness of breath is better. Part of the shortness of breath is secondary to elevation of hemidiaphragm because of abdominal distention and hematomas. 5. History of mechanical aortic valve. Patient is being anticoagulated with heparin and Coumadin. 6. Fever spikes. Patient has hemoperitoneum, which is most likely causing fever spikes. He is currently on intravenous (IV) meropenem. Vancomycin was held. Cultures are negative so far. Another set of blood cultures was done last night because of another fever spike. I am inclined toward starting the patient on fluconazole because of possibility of fungal peritonitis. 7. Hyponatremia. It is secondary to hypervolemia and end-stage renal disease. Sodium level is acceptable. It is expected to improve with hemodialysis and ultrafiltration. 8. Anemia and end-stage renal disease. Patient's hemoglobin is 8.9, which is suboptimal. He was started on Aranesp 200 mcg intravenous (IV) with hemodialysis yesterday.
[2017-05-01] VITALS (7 sets, daily range): BP systolic 117–166; BP diastolic 60–87
[2017-05-01] MEDS: MORPHINE 2 MG/ML 1ML SYRINGE IV PRN (03:58)
[2017-05-01 05:31] LABS: BASO # 0.1 K/mm3 (0.0-0.2); BASO % 0.4 % (0.0-1.0); EOS # 0.1 K/mm3 (0.0-0.50); EOS % 0.9 % (0.0-3.0); LARGE UNSTAINED CELL # 0.3 K/mm3 (0.0-0.4); LARGE UNSTAINED CELL % 1.8 % (0.0-4.0); LYMPH # 0.9 K/mm3 (1.5-4.5); LYMPH % 4.2 % (24.0-44.0); MEAN CORPUSCULAR HEMOGLOBIN 30.4 pg (27.0-33.0); MEAN CORPUSCULAR VOLUME 92.1 fl (80.0-96.0); MONO # 0.9 K/mm3 (0.0-0.8); MONO % 6.5 % (0.0-5.0); NEUTROPHILS # 12.5 K/mm3 (1.8-7.7); NEUTROPHILS % 86.2 % (36.0-66.0); PLATELET COUNT, AUTOMATED 310 k/mm3 (150-450); RED CELL DISTRIBUTION WIDTH 15.2 % (11.5-14.5); WHITE BLOOD COUNT 14.4 K/mm3 (4.0-10.0)
[2017-05-01 05:36] LABS: INR 1.69
[2017-05-01] MEDS: DICYCLOMINE 10 MG CAP PO SCH ×4 (05:52→18:00)
[2017-05-01 05:54] LABS: ALBUMIN/GLOBULIN RATIO 0.47 (1.00-1.93); BILIRUBIN,TOTAL 2.3 MG/DL (0.2-1.0); CALCIUM LEVEL 7.4 MG/DL (8.8-10.2); CREATININE FOR GFR 9.64 MG/DL (0.70-1.30); GLOMERULAR FILTRATION RATE 5.8 (>42); MAGNESIUM LEVEL 2.3 MG/DL (1.8-2.4); POTASSIUM SERUM 4.7 MEQ/L (3.5-5.1); TOTAL PROTEIN 6.3 GM/DL (6.4-8.2)
[2017-05-01] MEDS: HEPARIN DRIP 25,000 UNITS in APPROPRIATE DILUENT 1 EA IV SCH (05:54)
[2017-05-01] MEDS: oxyCODONE 5MG TAB PO PRN ×2 (05:59→21:53)
[2017-05-01] MEDS: SENOKOT S TAB PO SCH ×2 (09:28→20:19)
[2017-05-01] MEDS: CARVedilol 3.125 MG TAB PO SCH ×2 (09:28→20:07)
[2017-05-01] MEDS: METHOCARBAMOL 500 MG TAB PO SCH ×2 (09:28→20:18)
[2017-05-01] MEDS: PANTOPRAZOLE 40MG INJ (PROTONIX) (C9113) IV SCH ×2 (09:31→20:19)
[2017-05-01] MEDS ORDERED: HEPARIN 1,000 UNITS/ML 10ML VIAL (FOR RADIOLOGY& DIALYSIS ONLY) IV ONE (12:00)
[2017-05-01] MEDS: WARFARIN SOD 5 MG TAB PO SCH (19:13)
[2017-05-01] MEDS: MEROPENEM INJ 500 MG in D5W MINI-BAG PLUS 100 ML IV SCH (20:18)
[2017-05-02] MEDS ORDERED: LIDOCAINE 5% (LIDODERM) PATCH TD ONE (03:46)
[2017-05-02 04:00] VITALS: BP 157/65
[2017-05-02] MEDS: DICYCLOMINE 10 MG CAP PO SCH ×4 (05:18→17:43)
[2017-05-02 06:25] LABS: BASO # 0.1 K/mm3 (0.0-0.2); BASO % 0.6 % (0.0-1.0); EOS # 0.2 K/mm3 (0.0-0.50); EOS % 1.2 % (0.0-3.0); LARGE UNSTAINED CELL # 0.4 K/mm3 (0.0-0.4); LARGE UNSTAINED CELL % 2.3 % (0.0-4.0); LYMPH # 0.5 K/mm3 (1.5-4.5); LYMPH % 3.4 % (24.0-44.0); MEAN CORPUSCULAR HEMOGLOBIN 30.8 pg (27.0-33.0); MEAN CORPUSCULAR HGB CONC 33.2 g/dl (32.0-36.5); MEAN CORPUSCULAR VOLUME 92.7 fl (80.0-96.0); MONO % 6.3 % (0.0-5.0); NEUTROPHILS # 13.2 K/mm3 (1.8-7.7); NEUTROPHILS % 86.1 % (36.0-66.0); PLATELET COUNT, AUTOMATED 359 k/mm3 (150-450); RED CELL DISTRIBUTION WIDTH 15.3 % (11.5-14.5); WHITE BLOOD COUNT 15.4 K/mm3 (4.0-10.0)
[2017-05-02 06:28] LABS: INR 1.58
[2017-05-02] MEDS: oxyCODONE 5MG TAB PO PRN ×2 (06:31→15:37)
[2017-05-02 06:41] LABS: ALBUMIN/GLOBULIN RATIO 0.49 (1.00-1.93); BILIRUBIN,TOTAL 1.9 MG/DL (0.2-1.0); CALCIUM LEVEL 7.7 MG/DL (8.8-10.2); CREATININE FOR GFR 8.34 MG/DL (0.70-1.30); GLOMERULAR FILTRATION RATE 6.8 (>42); MAGNESIUM LEVEL 2.4 MG/DL (1.8-2.4); POTASSIUM SERUM 4.7 MEQ/L (3.5-5.1); TOTAL PROTEIN 6.1 GM/DL (6.4-8.2)
[2017-05-02 08:00] VITALS: BP 168/74
[2017-05-02] MEDS: METHOCARBAMOL 500 MG TAB PO SCH (08:58)
[2017-05-02] MEDS: CARVedilol 3.125 MG TAB PO SCH ×2 (08:59→20:37)
[2017-05-02] MEDS: PANTOPRAZOLE 40MG INJ (PROTONIX) (C9113) IV SCH ×2 (08:59→20:36)
[2017-05-02] MEDS: SENOKOT S TAB PO SCH ×2 (09:00→20:37)
[2017-05-02] MEDS ORDERED: LIDOCAINE 5% (LIDODERM) PATCH TD SCH (09:00)
[2017-05-02] MEDS ORDERED: GLUCAGON FOR INJ 1 MG VIAL (J1610) SC PRN (09:30)
[2017-05-02] MEDS ORDERED: GLUCOSE 4 GM CHEW TABLET PO PRN (09:30)
[2017-05-02] MEDS ORDERED: DEXTROSE 50% 50 ML SYRINGE IV PRN (09:30)
[2017-05-02 12:00] VITALS: BP 160/58
[2017-05-02] MEDS: HumaLOG INSULIN (NovoLOG) PER UNIT SC SCH ×3 (12:00→21:00)
[2017-05-02] MEDS: CYCLOBENZAPRINE 10 MG TAB PO PRN ×2 (12:42→18:16)
[2017-05-02 16:00] VITALS: BP 146/68
[2017-05-02] MEDS: WARFARIN SOD 7.5 MG TAB PO SCH (17:44)
[2017-05-02] MEDS: MORPHINE 2 MG/ML 1ML SYRINGE IV PRN (20:36)
[2017-05-02] MEDS: MEROPENEM INJ 500 MG in D5W MINI-BAG PLUS 100 ML IV SCH (20:37)
[2017-05-02] MEDS ORDERED: **NOTE PATIENT COMMENT** MISC XX SCH (21:00)
[2017-05-02] MEDS: **NOTE PATIENT COMMENT** MISC XX SCH (21:00)
[2017-05-02 21:15] VITALS: BP 147/70
--- NOTE | 2017-05-02 22:27 | IPN ---
DATE: 05/02/2017 SUBJECTIVE: The patient was seen and examined at the bedside today morning. He continues to be oliguric at this time. He was dialyzed yesterday. He tolerated the hemodialysis procedure well. There are no signs of renal recovery at this time except that his urine output is slowly improving. The patient also had a low grade temperature of 100.4 degrees last night. REVIEW OF SYSTEMS: The patient denies any chills or rigors. He denies any chest pain. He does report mild shortness of breath. He reports a persistent abdominal distention but he reports that his appetite is getting better. He denies any constipation or diarrhea and abdominal pain is also improving. The rest of review of systems is negative. OBJECTIVE: VITAL SIGNS: Temperature this morning was 98.6 degrees Fahrenheit. Blood pressure was 168/74, pulse is 97, respiratory rate of 19, saturating 97% on room air. INTAKE AND OUTPUT: Urine output recorded was 310 mL yesterday and so far his urine output is 700 mL. Weight on the bed scale is 101.8 kg. PHYSICAL EXAMINATION: GENERAL: The patient is awake, alert and oriented times three. Laying in bed. No apparent distress. HEAD/NECK: Extraocular muscles intact. Pupils equally round and reactive to light. Mucous membranes are moist. The patient has a right IJ tunneled hemodialysis catheter. CARDIOVASCULAR: S1, S2, regular rate. No murmur, rub or gallop. RESPIRATORY: Decreased breath sounds at the bases. Otherwise, bilateral equal air entry. Decreased vocal resonance in the right base. ABDOMEN: Soft. Distended. Tympanitic per patient. Multiple ecchymosis over the abdomen which is slowly improving. There is no tenderness or rebound tenderness. GENITOURINARY: No hernia. No rashes in the groin. MUSCULOSKELETAL: No clubbing or cyanosis. EXTREMITIES: No edema. Pulses are 2+. CENTRAL NERVOUS SYSTEM: No focal neurological deficit. Power is 5/5 in all extremities. PSYCHIATRIC: Normal mood and affect. LAB REVIEW: CBC showed a WBC of 15.4, hemoglobin 8.1, platelets of 359, INR is 1.5. BMP showed sodium 133, potassium 4.7, chloride 96, bicarbonate 25, BUN is 90, creatinine is 8.3. Calcium 7.7, magnesium 2.4. Total bilirubin is 1.9. AST 99, ALT 125. Alkaline phosphatase is 224. Albumin is 2. Microbiology: Blood cultures sent on April 30, 2017 are negative so far. CURRENT INPATIENT MEDICATIONS: The patient's medications are all reviewed by me. He continues to be on IV meropenem. Last dose will be on May 04, 2017. He has been started on insulin sliding scale. His warfarin dose has been changed to 7.5 mg by mouth daily. ASSESSMENT: 71-year-old male, status post left fluoroscopic cholecystectomy. Postoperative course was complicated with hemorrhagic shock, shock liver and acute oliguric renal failure because of history of anticoagulation for prosthetic cardiac valve. PLAN: 1. Acute oliguric renal failure. The patient is still hemodialysis dependent. Last hemodialysis session was yesterday, however, I see that patient's urine output is improving which is a good sign. I will continue to monitor the patient on daily basis for any need to continue hemodialysis. There is no urgent need of hemodialysis today. 2. Shock liver. The patient's liver function tests are improving. Avoid hepatotoxic medications at this time. 3. Hemoperitoneum. The patient's abdominal distention and abdominal pain and tenderness is improving. Hemoglobin is stable. Continue the supportive management at this time. 4. History of mechanical aortic valve. The patient is being anticoagulated. Coumadin dose is being increased. Continue to monitor CBC while patient's INR is becoming therapeutic. 5. Fever spike. The patient is having low grade temperatures at this time. He is currently on renally dosed meropenem. All the cultures are negative so far. Fevers might be secondary to hemoperitoneum. 6. Hyponatremia. It is secondary to hypervolemia, renal failure. Hemodialysis and ultrafiltration will help improve hyponatremia. 7. Anemia and end-stage renal disease. The patient is currently on Aranesp 200 mcg IV with hemodialysis. Continue current dose. No need of blood transfusion at this time. 8. Arteriovenous (AV) access. The patient has a tunneled right IJ hemodialysis catheter at this time.
[2017-05-03] VITALS (7 sets, daily range): BP systolic 117–149; BP diastolic 55–70
[2017-05-03] MEDS: DICYCLOMINE 10 MG CAP PO SCH ×5 (00:57→23:39)
[2017-05-03] MEDS: MORPHINE 2 MG/ML 1ML SYRINGE IV PRN (03:18)
[2017-05-03 05:29] LABS: BASO % 0.4 % (0.0-1.0); EOS # 0.2 K/mm3 (0.0-0.50); EOS % 1.9 % (0.0-3.0); LARGE UNSTAINED CELL # 0.3 K/mm3 (0.0-0.4); LARGE UNSTAINED CELL % 2.1 % (0.0-4.0); LYMPH # 0.9 K/mm3 (1.5-4.5); LYMPH % 5.4 % (24.0-44.0); MEAN CORPUSCULAR HEMOGLOBIN 30.3 pg (27.0-33.0); MEAN CORPUSCULAR HGB CONC 32.7 g/dl (32.0-36.5); MEAN CORPUSCULAR VOLUME 92.5 fl (80.0-96.0); MONO # 0.9 K/mm3 (0.0-0.8); NEUTROPHILS # 10.3 K/mm3 (1.8-7.7); NEUTROPHILS % 83.2 % (36.0-66.0); PLATELET COUNT, AUTOMATED 364 k/mm3 (150-450); RED CELL DISTRIBUTION WIDTH 15.5 % (11.5-14.5); WHITE BLOOD COUNT 12.4 K/mm3 (4.0-10.0)
[2017-05-03 05:35] LABS: INR 1.56
[2017-05-03 05:53] LABS: ALBUMIN 2.1 GM/DL (3.2-5.2); ALBUMIN/GLOBULIN RATIO 0.47 (1.00-1.93); BILIRUBIN,TOTAL 1.4 MG/DL (0.2-1.0); CALCIUM LEVEL 7.5 MG/DL (8.8-10.2); CREATININE FOR GFR 10.3 MG/DL (0.70-1.30); GLOMERULAR FILTRATION RATE 5.3 (>42); MAGNESIUM LEVEL 2.4 MG/DL (1.8-2.4); POTASSIUM SERUM 4.9 MEQ/L (3.5-5.1); TOTAL PROTEIN 6.6 GM/DL (6.4-8.2)
[2017-05-03] MEDS: HumaLOG INSULIN (NovoLOG) PER UNIT SC SCH ×4 (07:30→19:41)
--- NOTE | 2017-05-03 09:13 | IPN ---
DATE: 05/03/2017 71-year-old gentleman seen at bedside complaining of continued cervical neck pain and discomfort. He denies blurry vision, double vision, tinnitus. No difficulty with speech or swallow. No nausea or vomiting. Denies chest pain. Denies any abdominal pain but he has noticed some right lower extremity swelling that has been progressive for the last few days and some pain posterior to the knee when he walks. OBJECTIVE: Temperature 97.7, pulse 80, respiratory rate is 20, blood pressure 142/69, SpO2 is 95% on room air. General: The patient appears to be in no acute distress. He is alert and oriented, pleasant. HEENT: Unremarkable. Neck is supple. Throat is clear. Lungs: Clear to auscultation. Heart: Regular rhythm. Abdomen is distended, slightly tender but he has normoactive bowel sounds. No masses or rebound. Extremities: He does have noticeable edema that is more pronounced on the right with some posterior knee and calf mild tenderness. Pulses were equal distally. LABORATORY DATA: White count 12.4, hemoglobin 8.2, platelets 364. Sodium is 134, potassium 4.9, chloride 96, bicarb 22, anion gap 16, BUN is 110, creatinine 10.3, glucose is 118, total bilirubin 1.4, AST 83, ALT 112, alkaline phosphatase 221, ammonia is 35. ASSESSMENT/PLAN: 1. Right leg pain and swelling. Will do a duplex ultrasound of the lower extremities to rule out deep venous thrombosis. 2. Cervical neck pain appears to be more musculoskeletal. Will continue with warm moist heat, Flexeril, Lidoderm patch. Will also try some Zostrix cream with capsaicin to see if this helps out. 3. Acute renal failure. His creatinine has increased again today. Appreciate Dr. Kingston's input. He will likely need hemodialysis. 4. Liver shock secondary to hemorrhagic and hypovolemic shock with related ischemia and subcapsular hematoma. Liver function tests (LFTs) are improving. 5. Anemia secondary acute blood loss. H and H is stable. No further transfusions 6. Subcapsular abdominal hematoma. Appreciate Dr. Monson's input. 7. Shortness breath secondary to volume overload continues with dialysis. 8. History of mechanical aortic valve replacement. Will continue to adjust Coumadin as needed. He is currently on 7.5 mg. I would recommend repeating his INR tomorrow before making any further adjustments. 9. Intermittent fevers on empiric meropenem. Appreciate Dr. Monson's input. 10. Hyponatremia likely from volume overload. 11. Deep venous thrombosis (DVT) prophylaxis. We have continued to adjust his Coumadin. He continues with thromboembolic deterrent stockings (TEDS) and sequential. DISPOSITION: Still with guarded prognosis. However, he is showing some gradual improvement with his liver enzymes. He may likely need some ongoing hemodialysis in the short-term. Will defer that to Dr. Kingston. I appreciate physical therapy and [facility] input.
[2017-05-03] MEDS: PANTOPRAZOLE 40MG INJ (PROTONIX) (C9113) IV SCH ×2 (09:22→20:44)
[2017-05-03] MEDS: SENOKOT S TAB PO SCH ×2 (09:22→20:44)
[2017-05-03] MEDS: CAPSAICIN 0.025% CR 60 GM TOP SCH ×4 (09:23→20:44)
[2017-05-03] MEDS: CARVedilol 3.125 MG TAB PO SCH ×2 (09:23→20:44)
[2017-05-03] MEDS: LIDOCAINE 5% (LIDODERM) PATCH TD SCH (09:23)
[2017-05-03] MEDS ORDERED: SODIUM CHLORIDE NASAL 0.65% SPRAY BTL (OCEAN) PRN (10:30)
[2017-05-03] MEDS ORDERED: DARBEPOETIN 100 MCG/0.5 ML *DIALYSIS* SYRINGE (J0882) IV SCH (11:45)
[2017-05-03] MEDS ORDERED: HEPARIN 1,000 UNITS/ML 10ML VIAL (FOR RADIOLOGY& DIALYSIS ONLY) XX ONE (12:00)
[2017-05-03] MEDS: BISACODYL 10 MG SUPP PR PRN (16:59)
[2017-05-03] MEDS: WARFARIN SOD 7.5 MG TAB PO SCH (17:48)
--- NOTE | 2017-05-03 20:30 | IPN ---
DATE: 05/03/2017 SUBJECTIVE: The patient was seen and examined at the bedside today morning during hemodialysis procedure. He was tolerating the hemodialysis procedure well. Last 24-hour events were noted. The patient's urine output is improving. However, there is no significant improvement in the patient's creatinine and rest of the laboratories. REVIEW OF SYSTEMS: The patient denies any fevers, chills, rigors, headaches, nausea, vomiting, chest pain, shortness of breath, pain abdomen. He does report abdominal bloating, but he reports that his appetite is okay. He denies any constipation. Rest of review of systems is negative. OBJECTIVE: VITAL SIGNS: Temperature is 98.1 degrees Fahrenheit. Blood pressure is 149/69, pulse is 74, respiratory rate 18, saturating 93% on room air. INTAKE AND OUTPUT: Urine output recorded as 700 mL yesterday, 275 mL so far today since overnight. PHYSICAL EXAMINATION: GENERAL: The patient is awake, alert, and oriented times three, lying in bed getting hemodialysis done. HEAD/NECK: Extraocular muscles intact. Pupils equal, round, and reactive to light. Mucous membranes are moist. The patient has a right internal jugular (IJ) tunneled hemodialysis catheter which is being used for dialysis at this time. CARDIOVASCULAR: S1, S2. Regular rate. No murmur, rub, or gallop. RESPIRATORY: Decreased breath sounds at the bases; otherwise bilateral equal air entry. ABDOMEN: Soft, distended, tympanitic to percussion. Ecchymosis over the abdomen is improving. There is no tenderness or rebound tenderness. MUSCULOSKELETAL: No clubbing or cyanosis. Pulses are 2+. CENTRAL NERVOUS SYSTEM (TEMPORARY OFFICE ASSISTANT): No focal neurological deficit. Power is 5/5 in all extremities. PSYCHIATRIC: Normal mood and affect. LABORATORY DATA: CBC showed WBC 12.4, hemoglobin is 8.2, platelets are 354. INR is 1.5. Bmp showed sodium 134, potassium 4.9, chloride 96, bicarbonate 22, BUN 110, creatinine is 10.3, fasting glucose 118, calcium 7.5, magnesium 2.4, total bilirubin 1.4, AST 83, ALT 112, alkaline phosphatase 221, albumin 2.1. CURRENT INPATIENT MEDICATIONS: The patient's medications are all reviewed by me. The patient is on Aranesp 200 mcg IV with hemodialysis. There is no other change in the medications today as compared with yesterday. ASSESSMENT: A 71-year-old male status post laparoscopic cholecystectomy. The patient was admitted to the hospital this time with hemorrhagic shock, shock liver, and acute oliguric renal failure, and the patient was on anticoagulation for prosthetic aortic valve. PLAN: 1. Acute renal failure: The patient is becoming nonoliguric at this time. His urine output was 700 mL yesterday; however, I do not see any metabolic improvement at this time. The patient is still dialysis dependent. The patient is being dialyzed today for clearance, and I shall try to do ultrafiltration of about two liters as tolerated by his blood pressure. 2. Shock liver. The patient's liver function tests (LFTs) are improving. 3. Hemoperitoneum. The patient's hemoglobin is stable at this time. He still reports abdominal distention, but tenderness is better. Continue the supportive care. 4. History of mechanical aortic valve. The patient is currently on anticoagulation. Coumadin management is as per primary team. 5. Anemia in end-stage renal disease. The patient will be given a dose of Aranesp 200 mcg IV with hemodialysis.
[2017-05-03] MEDS: MEROPENEM INJ 500 MG in D5W MINI-BAG PLUS 100 ML IV SCH (20:43)
[2017-05-03] MEDS: **NOTE PATIENT COMMENT** MISC XX SCH (20:44)
[2017-05-04] VITALS (7 sets, daily range): BP systolic 111–166; BP diastolic 58–79
[2017-05-04 05:20] LABS: BASO % 0.5 % (0.0-1.0); EOS # 0.2 K/mm3 (0.0-0.50); EOS % 1.9 % (0.0-3.0); LARGE UNSTAINED CELL # 0.4 K/mm3 (0.0-0.4); LARGE UNSTAINED CELL % 3.6 % (0.0-4.0); LYMPH % 7.2 % (24.0-44.0); MEAN CORPUSCULAR HEMOGLOBIN 30.1 pg (27.0-33.0); MEAN CORPUSCULAR HGB CONC 32.2 g/dl (32.0-36.5); MEAN CORPUSCULAR VOLUME 93.5 fl (80.0-96.0); MONO # 0.9 K/mm3 (0.0-0.8); MONO % 9.4 % (0.0-5.0); NEUTROPHILS # 7.4 K/mm3 (1.8-7.7); NEUTROPHILS % 77.3 % (36.0-66.0); PLATELET COUNT, AUTOMATED 272 k/mm3 (150-450); RED CELL DISTRIBUTION WIDTH 15.4 % (11.5-14.5); WHITE BLOOD COUNT 9.6 K/mm3 (4.0-10.0)
[2017-05-04 05:32] LABS: INR 1.67
[2017-05-04] MEDS: DICYCLOMINE 10 MG CAP PO SCH ×4 (05:34→23:32)
[2017-05-04 05:45] LABS: ALBUMIN/GLOBULIN RATIO 0.5 (1.00-1.93); CALCIUM LEVEL 7.2 MG/DL (8.8-10.2); CREATININE FOR GFR 7.75 MG/DL (0.70-1.30); GLOMERULAR FILTRATION RATE 7.4 (>42); MAGNESIUM LEVEL 2.2 MG/DL (1.8-2.4); POTASSIUM SERUM 4.7 MEQ/L (3.5-5.1)
[2017-05-04] MEDS: PANTOPRAZOLE 40MG INJ (PROTONIX) (C9113) IV SCH ×2 (07:57→20:12)
[2017-05-04] MEDS: CARVedilol 3.125 MG TAB PO SCH ×2 (07:58→20:12)
[2017-05-04] MEDS: SENOKOT S TAB PO SCH ×2 (07:58→20:12)
[2017-05-04] MEDS: LIDOCAINE 5% (LIDODERM) PATCH TD SCH (07:58)
[2017-05-04] MEDS: CAPSAICIN 0.025% CR 60 GM TOP SCH ×4 (07:59→20:12)
[2017-05-04] MEDS: HumaLOG INSULIN (NovoLOG) PER UNIT SC SCH ×4 (08:01→20:16)
--- NOTE | 2017-05-04 11:21 | IPN ---
DATE: 05/04/2017 71-year-old seen at bedside. No overnight issues reported. He feels that his neck discomfort is better than yesterday. He is having bowel movements and voiding fine today. He had dialysis yesterday and they removed 2-1/2 liters of fluid. OBJECTIVE: Temperature is 98.2, pulse 79, respiratory rate is 20, blood pressure 139/65, SpO2 is 94% on room air. GENERAL: The patient appears to be in no acute distress, is alert and oriented. HEENT: Unremarkable. LUNGS: Clear. HEART: Regular rate and rhythm. ABDOMEN: Distended. Still somewhat tense, but nontender. Positive bowel sounds. 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 Ultrasound of the lower extremities was taken yesterday; those results are pending. LABORATORY DATA: White count is 9.6, hemoglobin 7.6, platelets are 272,000, INR is 1.67. Sodium 137, potassium 4.7, chloride 99, bicarb 23, anion gap 15, BUN 7, creatinine 7.75, glucose is 119, calcium 7.2, AST 86, ALT 97, alkaline phosphatase 213, albumin 2.0. ASSESSMENT/PLAN: 1. Right leg swelling and pain. Ultrasound is pending at this time to rule out DVT. 2. Cervical neck pain. Appears to be musculoskeletal. We did have one of the resident's perform some OMT on him yesterday. He continues with Flexeril, Lidoderm patch and Zostrix cream. 3. Acute renal failure. Creatinine is slightly improved today. Appreciate Dr. Kingston's input and appreciate any further dialysis should he need it. 4. Liver shock secondary to hemorrhagic and hypovolemic shock and liver ischemia. LFTs are improving. 5. Subcapsular hematoma. Appears to be stable. 6. Anemia secondary to acute blood loss and renal failure. Will continue to monitor his hemoglobin and hematocrit. He did receive a dose of Aranesp yesterday during dialysis. He has not shown any signs of bleeding currently and will hold any further transfusions unless felt necessary by surgery or his homebound teacher. 7. Shortness of breath secondary volume overload. He continues with dialysis intermittently. 8. History of mechanical aortic valve replacement. INR is still subtherapeutic. Will increase his Coumadin to 10 mg. 9. Intermittent fevers on empiric meropenem. Defer to surgery. 10. Hyponatremia. Likely due to volume overload and he received hemodialysis yesterday. Will continue to follow. 11. Deep vein thrombosis (DVT) prophylaxis. Thromboembolic deterrent stockings (TEDS) and sequentials, and is resuming Coumadin. DISPOSITION: Still guarded with some gradual improvement. Appreciate surgery and nephrology input as well as physical therapy and patient and family services (PFS).
[2017-05-04] MEDS: BISACODYL 10 MG SUPP PR PRN (11:26)
[2017-05-04] MEDS: WARFARIN SOD 5 MG TAB PO SCH (17:11)
--- NOTE | 2017-05-04 19:11 | IPN ---
DATE: 05/04/2017 SUBJECTIVE: The patient was seen and examined at the bedside today morning. The patient denies any new complaints. He was dialyzed yesterday. He tolerated the hemodialysis procedure well. The patient's renal function shows some signs of improvement and his oliguria is improving. However, I see a slight drop in his hemoglobin today as compared with yesterday. REVIEW OF SYSTEMS: The patient denies any fevers, chills, rigors, headaches, nausea, vomiting, chest pain, shortness of breath. He denies any pain abdomen. He does complain of abdominal distention. He denies any dysuria or hematuria, and he denies any muscle aches and pains. Rest of review of systems is negative. OBJECTIVE: VITAL SIGNS: Temperature is 98.6 degrees Fahrenheit, blood pressure is 166/79, pulse 78, respiratory rate of 18, saturating 95% on room air. INTAKE AND OUTPUT: Urine output recorded as 275 mL yesterday. Ultrafiltration with hemodialysis was 2.5 liters yesterday. Urine output today since overnight is 575 mL. Weight in the bed scale is 100.5 kg. PHYSICAL EXAMINATION: GENERAL: The patient is awake, alert, and oriented times three, lying in bed in no apparent distress. HEAD/NECK: Extraocular muscles intact. Pupils equal, round, and reactive to light. Mucous membranes are moist. Neck is supple. There is no jugular venous distention (JVD). ARTERIOVENOUS (AV) ACCESS: The patient has a right internal jugular (IJ) tunneled hemodialysis catheter. CARDIOVASCULAR: S1, S2. Regular rate. No murmur, rub, or gallop. RESPIRATORY: Decreased breath sounds at the bases. Otherwise, no rales or rhonchi. ABDOMEN: Soft, distended, tympanitic to percussion. Ecchymosis all over the abdomen which is resolving now. There is no tenderness or rebound tenderness. MUSCULOSKELETAL: No clubbing or cyanosis. Pulses are 2+. CENTRAL NERVOUS SYSTEM (FORENSIC SPECIALIST): No focal neurological deficit. Power is 5/5 in all extremities. PSYCHIATRIC: Normal mood and affect. LABORATORY DATA: CBC showed a WBC 9.6, hemoglobin 7.6, platelets 272. INR is 1.6. BMP showed sodium 137, potassium 4.7, chloride 99, bicarbonate 23, BUN 76, creatinine 7.7, calcium 7.2. AST 86, ALT 97, alkaline phosphatase 213. Albumin is two. CURRENT INPATIENT MEDICATIONS: The patient's medications are all reviewed by me. Meropenem has been finished today. Warfarin dose has been increased to 10 mg by mouth daily. ASSESSMENT: A 71-year-old male status post laparoscopic cholecystectomy. Patient admitted this time to the hospital with hemorrhagic shock, shock liver, and acute oliguric renal failure, and the patient was also on anticoagulation for prosthetic aortic valve. PLAN: 1. Acute renal failure: The patient is becoming nonoliguric at this time. His urine output is improving. The patient required hemodialysis yesterday. I will continue to monitor the urine output and intradialytic change in the creatinine. The patient will be monitor on daily basis for any need to continue hemodialysis. No urgent need of hemodialysis today. 2. Shock liver: The patient's liver function continues to improve. Avoid hepatotoxic medications. 3. Hemoperitoneum: The patient is stable. His abdomen is nontender. Empiric intravenous (IV) meropenem has been stopped today. 4. History of mechanical aortic valve. Continue the anticoagulation as per primary team. INR is still subtherapeutic at this time. 5. Anemia in end-stage renal disease and recent hemoperitoneum: The patient's hemoglobin has dropped again, but he does not have any peritoneal tenderness at this time. He was also given a dose of Aranesp with hemodialysis yesterday. Continue to monitor for now. If hemoglobin stays below eight, then the patient will be given a unit of packed red blood cells (PRBCs) transfusion during hemodialysis. The plan of care was discussed with the patient's at the bedside.
[2017-05-04] MEDS: **NOTE PATIENT COMMENT** MISC XX SCH (20:12)
[2017-05-05 04:00] VITALS: BP 159/78
[2017-05-05] MEDS: DICYCLOMINE 10 MG CAP PO SCH ×3 (05:13→17:06)
[2017-05-05 05:33] LABS: INR 1.75
[2017-05-05 05:44] LABS: BASO % 0.4 % (0.0-1.0); EOS # 0.2 K/mm3 (0.0-0.50); EOS % 1.8 % (0.0-3.0); LARGE UNSTAINED CELL # 0.3 K/mm3 (0.0-0.4); LARGE UNSTAINED CELL % 2.9 % (0.0-4.0); LYMPH # 0.7 K/mm3 (1.5-4.5); LYMPH % 6.7 % (24.0-44.0); MEAN CORPUSCULAR HEMOGLOBIN 30.7 pg (27.0-33.0); MEAN CORPUSCULAR HGB CONC 32.4 g/dl (32.0-36.5); MEAN CORPUSCULAR VOLUME 94.7 fl (80.0-96.0); MONO % 8.6 % (0.0-5.0); NEUTROPHILS # 8.9 K/mm3 (1.8-7.7); NEUTROPHILS % 79.6 % (36.0-66.0); PLATELET COUNT, AUTOMATED 298 k/mm3 (150-450); RED CELL DISTRIBUTION WIDTH 15.3 % (11.5-14.5); WHITE BLOOD COUNT 11.1 K/mm3 (4.0-10.0)
[2017-05-05 05:57] LABS: MAGNESIUM LEVEL 2.3 MG/DL (1.8-2.4)
[2017-05-05 08:00] VITALS: BP 133/74
[2017-05-05] MEDS: PANTOPRAZOLE 40MG INJ (PROTONIX) (C9113) IV SCH ×2 (08:57→20:28)
[2017-05-05] MEDS: SENOKOT S TAB PO SCH ×2 (08:57→20:28)
[2017-05-05] MEDS: HumaLOG INSULIN (NovoLOG) PER UNIT SC SCH ×4 (08:57→21:00)
[2017-05-05] MEDS: CARVedilol 3.125 MG TAB PO SCH ×2 (08:58→20:27)
[2017-05-05] MEDS: CAPSAICIN 0.025% CR 60 GM TOP SCH ×4 (08:58→20:28)
[2017-05-05 09:25] LABS: ALBUMIN 2.1 GM/DL (3.2-5.2); ALBUMIN/GLOBULIN RATIO 0.5 (1.00-1.93); BILIRUBIN,TOTAL 1.1 MG/DL (0.2-1.0); CALCIUM LEVEL 7.4 MG/DL (8.8-10.2); CREATININE FOR GFR 9.65 MG/DL (0.70-1.30); GLOMERULAR FILTRATION RATE 5.7 (>42); TOTAL PROTEIN 6.3 GM/DL (6.4-8.2)
[2017-05-05 09:34] LABS: POTASSIUM SERUM 5.6 MEQ/L (3.5-5.1)
--- NOTE | 2017-05-05 09:42 | IPN ---
DATE: 05/05/2017 71-year-old gentleman at bedside resting comfortably. Feels the neck pain is much improved. He sees fever, chills, vomiting, does complain that his abdominal discomfort is about the same. OBJECTIVE: Temperature is 98.8, pulse 77, respiratory rate 20 blood pressure 133/74, SpO2 is 95% on room air. General: The patient appears to be in no acute distress. Is alert and oriented. HEENT: Unremarkable. Lungs: Clear. Heart: Regular rhythm. Abdomen: Distended, soft. Positive bowel sounds. No masses or rebound. Extremities: Trace edema, more prominent on the right but he does have scar from his previous vascular harvesting for his open heart surgery years ago. LABORATORY DATA: White count is 11.1, hemoglobin is 8.2, platelets are 298,000. Chemistries are pending. INR is 1.75. ASSESSMENT/PLAN: 1. Right leg swelling and pain. Ultrasound negative for deep venous thrombosis (DVT) likely related to his fluid overload. 2. Cervical neck pain, musculoskeletal: Appears to be much improved Lidoderm patch discontinued. He continues on Zostrix cream as needed and Flexeril as needed. 3. Acute renal failure: Appreciate nephrology's input. Anticipate dialysis within the next day or two if need be. 4. Liver shock secondary to hemorrhagic hypovolemic shock with liver ischemia. All of these have improved. Will continue to monitor. 5. Subcapsular hematoma appears stable. Appreciate general surgery's input. 6. Anemia secondary acute blood loss and renal failure: He received Aranesp with last dialysis, monitor. 7. Shortness of breath secondary to volume overload. The patient will have intermittent dialysis 8. History of mechanical aortic valve replacement. INR still subtherapeutic. Continue with Coumadin 10mg daily for now. 9. Intermittent fevers improved. Defer empiric meropenem for surgery. 10. Hyponatremia, likely due to volume overload. This again does appear to be improving with intermittent dialysis. 11. DVT prophylaxis. Continue with thromboembolic deterrent stockings (TEDS) sequential. Resuming Coumadin as outlined. DISPOSITION: Prognosis is still guarded but he does show some gradual improvement. Appreciate surgery and nephrology's input. Physical therapy, [facility] ([facility]) is involved. EDWIN
[2017-05-05 12:00] VITALS: BP 159/77
[2017-05-05] MEDS ORDERED: HEPARIN 1,000 UNITS/ML 10ML VIAL (FOR RADIOLOGY& DIALYSIS ONLY) IV ONE (14:45)
[2017-05-05 17:00] VITALS: BP 128/62
[2017-05-05] MEDS: WARFARIN SOD 5 MG TAB PO SCH (17:06)
--- NOTE | 2017-05-05 18:56 | REP ---
Clinical: Shortness of breath. Comparison: 04/30/2017. Findings: Double-lumen central venous catheter identified. Evidence for prior sternotomy and CABG. [id number] right pleural effusion appears slightly increased when compared to prior examination. Visualized aerated bilateral lung escobar without focal consolidation. Cardiac silhouette is stable. Skeletal structures are intact. Impression: [id number] right pleural effusion slightly increased when compared to prior examination. Signed by Quan Patel MD 05/05/2017 06:47 P
[2017-05-05 20:00] VITALS: BP 134/70
[2017-05-05] MEDS: **NOTE PATIENT COMMENT** MISC XX SCH (20:29)
[2017-05-05 23:59] VITALS: BP 127/64
[2017-05-06 04:00] VITALS: BP 120/56
[2017-05-06] MEDS: DICYCLOMINE 10 MG CAP PO SCH ×4 (05:24→17:00)
[2017-05-06 07:30] VITALS: BP 141/68
[2017-05-06 08:05] LABS: MEAN CORPUSCULAR HEMOGLOBIN 30.7 pg (27.0-33.0); MEAN CORPUSCULAR HGB CONC 32.9 g/dl (32.0-36.5); MEAN CORPUSCULAR VOLUME 93.3 fl (80.0-96.0); WHITE BLOOD COUNT 8.8 K/mm3 (4.0-10.0)
[2017-05-06 08:09] LABS: INR 2.09
--- NOTE | 2017-05-06 08:15 | REP ---
Clinical: Pain and swelling. Technique: Kelsey scale and color Doppler evaluation using linear high frequency transducer. Findings: Ultrasound examination of the right and left lower extremity deep venous structures from the common femoral vein to the popliteal vein demonstrates normal compressibility flow and wave patterns in response to respiration and augmentation. There is no evidence for deep venous thrombosis. Complex fluid collection in the left popliteal fossa measuring 5.9 x 1.5 x 4.2 cm compatible with Funes's cyst. Impression: No evidence for deep venous thrombosis. Left Funes's cyst. Signed by Quan Patel MD 05/03/2017 10:18 A
[2017-05-06 08:26] LABS: ALBUMIN 2.1 GM/DL (3.2-5.2); ALBUMIN/GLOBULIN RATIO 0.58 (1.00-1.93); CALCIUM LEVEL 7.1 MG/DL (8.8-10.2); CREATININE FOR GFR 7.02 MG/DL (0.70-1.30); GLOMERULAR FILTRATION RATE 8.3 (>42); POTASSIUM SERUM 4.4 MEQ/L (3.5-5.1); TOTAL PROTEIN 5.7 GM/DL (6.4-8.2)
--- NOTE | 2017-05-06 08:27 | IPN ---
DATE: 05/05/2017 SUBJECTIVE: The patient is seen this morning on hemodialysis. He is tolerating his treatment without issues. He continues to note dyspnea on exertion. He has otherwise been maintained on room air. The patient notes increasing urine output over the past three days. His hemoglobin has been stable above 8 and he has not required transfusions. He reports unchanged abdominal distention and fair by mouth intake. REVIEW OF SYSTEMS: Negative for fever, chills, headache, nausea, vomiting, chest pain, palpitations, abdominal pain. Negative for dysuria, hematuria. Positive for dyspnea on exertion and abdominal distention. Remainder of review of systems is negative. OBJECTIVE: Temperature 98.8, pulse 77, respiratory rate 18-20 breaths per minute, blood pressure 133/74, saturating 96% on room air. Intake and Output: Intake 1400 mL, urine output yesterday 1075 mL, with 4 recorded voids. Weight on the bed scale today 98.3 kg, which has been the lowest weight for the patient thus far. PHYSICAL EXAMINATION: The patient is seen both before dialysis and during his hemodialysis session. He is awake, alert, oriented times three, tolerating hemodialysis in no acute distress. His is present at the bedside. HEAD AND NECK: Extraocular muscles are intact. Pupils are equal, round and reactive to light. Mucous membranes are moist. Neck is supple. There is no jugular venous distention. There is a right internal jugular (IJ) hemodialysis catheter. CARDIOVASCULAR: S1, S2, mechanical click, regular rate. 2+ radial pulse. RESPIRATORY: Decreased breath sounds at the bases. Faint end expiratory wheeze. ABDOMEN: Distended. Tympanitic to percussion. Diffuse ecchymosis. Deep palpation was not performed. MUSCULOSKELETAL: Full range of motion intact. No clubbing or cyanosis. NEUROLOGIC: No focal neurologic deficit. 5/5 power in all extremities. PSYCHIATRIC: Normal mood and affect. LABS: White count 11, hemoglobin 8.2 and platelets 298. INR 1.7. Sodium 136, pre-dialysis potassium 5.6, bicarbonate 20, BUN 94, corrected calcium 9, magnesium 2.3. LFTs down trending. Chest x-ray on 05/05/2017 with moderate to large right pleural effusion slightly increased when compared to prior examination. INPATIENT MEDICATIONS: Reviewed by myself and no change in the past 24 hours. The patient does remain on Coumadin. ASSESSMENT AND PLAN: 1. Acute tubular necrosis, now with signs of renal recovery. The patient is non-oliguric. His urine output has been increasing. He still does continue to require hemodialysis for clearance. He had a pre-dialysis potassium of 5.6 today and his BUN was close to 100. He continues to have an interdialytic rise in serum creatinine. We will continue to assess the patient on a daily basis for need of hemodialysis. 2. Moderate to large right pleural effusion. The patient does complain of dyspnea on exertion. I will reach out to the primary team regarding possible need for therapeutic thoracentesis to help the patient from a respiratory point of view. He is on Coumadin, but his INR remains less than 2 at this time. 3. Hemoperitoneum. His hemoglobin remains stable above 8. If patient's hemoglobin falls less than 8, he can be transfused with dialysis. Continue with surgical followup. 4. Shock liver. The patient's LFTs continue to improve. 5. Mechanical aortic valve. The patient is on Coumadin per primary team. INR subtherapeutic at this time. 6. Hypertension. Blood pressure is well controlled on low dose Coreg.
[2017-05-06] MEDS: PANTOPRAZOLE 40MG INJ (PROTONIX) (C9113) IV SCH ×2 (09:38→20:56)
[2017-05-06] MEDS: HumaLOG INSULIN (NovoLOG) PER UNIT SC SCH ×4 (09:40→20:58)
[2017-05-06] MEDS: CARVedilol 3.125 MG TAB PO SCH ×2 (09:41→20:57)
[2017-05-06] MEDS: SENOKOT S TAB PO SCH ×2 (09:41→20:57)
[2017-05-06] MEDS: CAPSAICIN 0.025% CR 60 GM TOP SCH ×4 (09:41→21:00)
[2017-05-06 12:00] VITALS: BP 144/69
--- NOTE | 2017-05-06 14:26 | REP ---
Clinical: Status post thoracentesis. Technique: PA and lateral. Comparison: 05/06/2017 and 08:01 a.m.. Findings: Double-lumen central venous catheter terminating in the SVC/right atrium. Evidence for prior sternotomy, aortic valve repair, coronary stenting and CABG. The cardiac silhouette is upper limits of normal. Elevation to the right hemidiaphragm is unchanged along with suspected trace right lower lobe atelectasis. No definite effusion. No pneumothorax. Skeletal structures intact. Impression: Cannot exclude trace right basilar atelectasis. No obvious residual pleural effusion. No pneumothorax. Signed by Quan Patel MD 05/06/2017 02:18 P
--- NOTE | 2017-05-06 14:39 | REP ---
PORTABLE CHEST X-RAY: SINGLE VIEW. HISTORY: Question pneumonia. COMPARISON STUDY: 05/05/2017 FINDINGS: ECG monitoring electrodes overlie the chest. There is a tunnel catheter in place via the right side with its tip in the expected location of the superior vena cava. Prior median sternotomy wires are seen. Right hemidiaphragm remains elevated. Left lung is clear. No free pleural effusion is seen. IMPRESSION: No acute infiltrate seen. Signed by Twan Mcleod MD 05/06/2017 04:34 P
--- NOTE | 2017-05-06 15:00 | IPN ---
DATE: 05/06/2017 SUBJECTIVE: The patient tells me that he is feeling well. He still has some shortness of breath. He denies chills, but he did have a fever yesterday evening with a T-max of 101.3. He denies any complaints. No diarrhea. He tells me that he is making urine, but not very much. OBJECTIVE:: VITAL SIGNS: Temperature current 100.1, pulse 88, respiratory rate 22, blood pressure 144/69, oxygen saturation 97% on room air. GENERAL: He is a pleasant elderly man laying back in a recliner at a 60 degree angle. He does not appear to be in any acute distress whatsoever. HEENT: Cranial nerves II through XII intact. CARDIOVASCULAR EXAM: S1 and S2, regular. RESPIRATORY EXAM: He has diminished breath sounds on the right side. ABDOMINAL EXAM: Grossly obese. He has a HD catheter on his right thorax. EXTREMITIES: There is 1+ edema bilaterally. LABORATORY STUDIES: WBC 8.8, hemoglobin 7.9, hematocrit 24.1, platelet count 266. Chemistry panel: Sodium 138, potassium 4.4, chloride 99, bicarb 25, BUN 60, creatinine 7.0. Liver function tests continue to trend downward. INR is 2.0. Microbiology: Blood cultures and urine cultures have all been negative thus far. IMAGING: The patient had a chest x-ray on 05/05 that revealed moderate to large right pleural effusions, slightly increased compared with prior exams. He previously had a vascular ultrasound that revealed left bakers cyst, no evidence of deep vein thrombosis (DVT). ASSESSMENT/PLAN: This is a 71-year-old man with acute renal failure. PROBLEMS: 1. Acute renal failure. Likely ATN. Appears to be doing fairly well. Urine output has been increasing. He does not appear to be auto diuresing at this time. I did speak with nephrology today. Will continue to monitor him daily and provide dialysis as needed. Hopefully his kidneys will recover in the near future. 2. Shortness of breath. The patient does have a large right pleural effusion. He does appear to be mildly fluid overloaded. We are managing his fluid status. He had dialysis. He may benefit from thoracentesis and as such I have ordered it with appropriate pleural studies. 3. Fever. At this point appear to be unclear etiology. Simon culture, repeat a chest x-ray and tap his pleural effusion to ensure no other source is there. 4. Hemorrhagic hypovolemic shock, resolved. The patient is maintaining his own blood pressure adequately. 5. Shock liver secondary to the aforementioned. 6. Subcapsular hematoma with hemoperitoneum. Hemoglobin and hematocrit stable. 7. Acute blood loss anemia secondary to hemoperitoneum and also likely related to some other component of renal disease at this point. Nephrology's help is appreciated. Continue to monitor. Hemoglobin is stable. 8. Mechanical aortic valve replacement. Continue with Coumadin 10 mg daily. He is close to becoming therapeutic. 9. Hyponatremia, resolved. 10. Deep vein thrombosis (DVT) prophylaxis. Sequentials, thromboembolic deterrent stockings (TEDS) and Coumadin. DISPOSITION: Appears to be improving. At this time I feel as though he is medically stable for transfer off of telemetry and should continue to work closely with physical therapy. Pending renal function as well as pleural studies as well as fever. MTDD
[2017-05-06 15:01] LABS: LDH, BODY FLUID 413 U/L (NOT ESTABLISHED)
[2017-05-06 16:55] LABS: RBC PLEURAL FLUID 26 (<10mm3 cells/uL); TNC PLEURAL FLUID 708 cells/uL (0-20)
[2017-05-06 16:56] LABS: BF DIFF IF INDICATED? YES (NO); CC BF DIFF EXAM CYTOCENTRIFUGE
[2017-05-06] MEDS: WARFARIN SOD 5 MG TAB PO SCH (17:00)
[2017-05-06 17:40] VITALS: BP 141/66
[2017-05-06] MEDS: **NOTE PATIENT COMMENT** MISC XX SCH (20:58)
[2017-05-06 22:00] VITALS: BP 140/73
[2017-05-07] MEDS: DICYCLOMINE 10 MG CAP PO SCH ×4 (00:58→17:23)
[2017-05-07 06:00] VITALS: BP 142/67
[2017-05-07 07:17] LABS: MEAN CORPUSCULAR HEMOGLOBIN 30.3 pg (27.0-33.0); MEAN CORPUSCULAR HGB CONC 32.7 g/dl (32.0-36.5); MEAN CORPUSCULAR VOLUME 92.8 fl (80.0-96.0); WHITE BLOOD COUNT 9.1 K/mm3 (4.0-10.0)
[2017-05-07 07:19] LABS: INR 2.26
--- NOTE | 2017-05-07 07:27 | REP ---
ULTRASOUND GUIDED RIGHT THORACENTESIS: The procedure was performed under the direct supervision of Dr. Mcleod. The risks and benefits of the procedure were explained to the patient and informed consent was obtained. The right pleural effusion was localized using ultrasound guidance. The skin was prepped and draped in a sterile fashion. 1% lidocaine was used as a local anesthetic. Using ultrasound guidance, an 8-Welsh multi-side hole catheter was inserted using trocar technique. 145 mL of low viscosity red colored fluid was withdrawn and sent to the lab. The patient tolerated the procedure well and there were no immediate complications. Reviewed by SUMAN Stanley 05/07/2017 09:29 AEdited and Signed by Twan Mcleod MD 05/07/2017 09:56 A
[2017-05-07 07:57] LABS: ALBUMIN 2.1 GM/DL (3.2-5.2); ALBUMIN/GLOBULIN RATIO 0.47 (1.00-1.93); BILIRUBIN,TOTAL 0.9 MG/DL (0.2-1.0); CALCIUM LEVEL 7.3 MG/DL (8.8-10.2); CREATININE FOR GFR 8.17 MG/DL (0.70-1.30); POTASSIUM SERUM 4.9 MEQ/L (3.5-5.1); TOTAL PROTEIN 6.6 GM/DL (6.4-8.2)
[2017-05-07] MEDS: PANTOPRAZOLE 40MG INJ (PROTONIX) (C9113) IV SCH ×2 (08:22→20:23)
[2017-05-07] MEDS: CARVedilol 3.125 MG TAB PO SCH ×2 (08:22→20:24)
[2017-05-07] MEDS: SENOKOT S TAB PO SCH ×2 (08:23→20:24)
[2017-05-07] MEDS: HumaLOG INSULIN (NovoLOG) PER UNIT SC SCH ×4 (08:23→19:56)
[2017-05-07] MEDS: CAPSAICIN 0.025% CR 60 GM TOP SCH ×4 (08:25→20:25)
[2017-05-07] MEDS ORDERED: HEPARIN 1,000 UNITS/ML 10ML VIAL (FOR RADIOLOGY& DIALYSIS ONLY) XX ONE (11:00)
[2017-05-07] MEDS ORDERED: HEPARIN 1,000 UNITS/ML 10ML VIAL (FOR RADIOLOGY& DIALYSIS ONLY) IV ONE (11:00)
[2017-05-07] MEDS ORDERED: ACETAMINOPHEN TAB 650MG DOSE (2X325MG) PO ONE (12:00)
--- NOTE | 2017-05-07 14:32 | IPN ---
DATE: 05/07/2017 SUBJECTIVE: The patient tells me that he is feeling a little bit better today. He tells me that his breathing a little bit more easily. He denies chest pain, nausea or vomiting. He tells me that he does not feel as though he had any fevers overnight and has no other complaints. OBJECTIVE: VITAL SIGNS: T-max 100.1 overnight, temperature 99.4, pulse 77, respiratory rate 12, blood pressure 142/67, oxygen saturation 97% on room air. GENERAL: He is a pleasant elderly man laying flat in bed. He does not appear to be in any acute distress. He is accompanied by his . HEENT: Cranial nerves II through XII are grossly intact. I do appreciate some elevation of his CVP. He has moist mucous membranes. CARDIOVASCULAR EXAM: S1 and S2, regular with mechanical S2. Pansystolic murmur. RESPIRATORY EXAM: Fairly clear. He has some mild bibasilar rales. ABDOMINAL EXAM: Grossly obese. He has a dialysis catheter in his right thorax. EXTREMITIES: No clubbing or cyanosis. There is 1+ edema bilaterally. LABORATORY STUDIES: WBC 9.1, hemoglobin 8.1, platelet count 303. Chemistry panel: Sodium 138, potassium 4.9, chloride 99, bicarb 26, BUN 72, creatinine 8.1. INR is 2.2 today. Urinalysis from yesterday was 2+ blood, 5 WBCs. Pleural fluid studies are suggestive of an exudative effusion. Hepatitis panel is negative. Imaging following thoracentesis revealed cannot exclude trace right basilar atelectasis. No obvious residual pleural effusion. No pneumothorax. Patient did have a thoracentesis completed yesterday that revealed 145 mL of low viscosity red colored fluid. ASSESSMENT/PLAN: This is a 71-year-old man with acute renal failure. PROBLEMS: 1. Acute renal failure. Likely ATN secondary to shock related to intra-abdominal hematoma. The patient is doing fairly well. We are watching his renal function daily. Today his labs continue to be abnormal and he is requiring hemodialysis. Hopefully his kidneys will recover in the near future; however, starting tomorrow will attempt to begin to arranged outpatient hemodialysis so the patient can continue his recovery outside of the hospital. 2. Shortness of breath. The patient did have a large right pleural effusion that has been tapped, suspicious for hemorrhagic effusion possibly related to his hemorrhagic shock and bleeding earlier during his hospital course. He has been tapped for approximately 150 mL. Continue to monitor him closely. This does not appear to be a parapneumonic effusion. His shortness of breath does appear improved. He is comfortable on room air. I will check an ambulating oxygen saturation tomorrow morning. The patient may have some symptomatic anemia. Will transfuse him 2 units of PRBCs with hemodialysis today. There were may be an element of fluid overload. He is receiving hemodialysis to control volume status as well. 3. Fever of unclear etiology. His fever does appear to be down trending. It may have been related to the pleural effusion which has been tapped and does appear to be grossly infected or pneumonia in nature. Will continue to monitor closely. 4. Hemorrhagic hypovolemic shock, resolved. The patient is maintaining his own blood pressure adequately. He is hemodynamically stable. 5. Shock liver secondary to the aforementioned. 6. Subcapsular hematoma with hemoperitoneum. His hemoglobin and hematocrit stable. This was the cause of his shock. It may have been related to his right sided blood effusion. 7. Acute blood loss anemia secondary to hemoperitoneum and also likely to some component of his renal disease. Nephrology's help is appreciated. We are transfusing him 2 units of PRBCs today. 8. Mechanical aortic valve replacement. He is to continue with Coumadin 10 mg, although he is very close to becoming therapeutic. I will decrease his daily dosing to 5 mg daily. 9. Hyponatremia, resolved. 10. Deep vein thrombosis (DVT) prophylaxis. Sequentials, thromboembolic deterrent stockings (TEDS) and Coumadin is therapeutic. DISPOSITION: Patient is improving. Will have him work with physical therapy once he has received his transfusion. Tomorrow will check an ambulating oxygen saturation. Will continue to followup with his renal function and begin arranging for disposition planning. The patient is appears to be doing well at this time.
--- NOTE | 2017-05-07 16:38 | IPN ---
DATE: 05/07/2017 SUBJECTIVE: The patient is seen today at the bedside. He had a temperature spike of 101.3 overnight. He was recultured. He otherwise denies complaints. He is ambulating and notes dyspnea on exertion stable from prior. He is tolerating his oral diet well. No diarrhea, nausea, or vomiting. He made 900 mL of urine. He had a chest x-ray done that showed moderate to large right pleural effusion slightly increased from prior. REVIEW OF SYSTEMS: Negative for headache, chest pain, palpitations. Positive for dyspnea on exertion. Negative for nausea, vomiting, diarrhea. Positive for fever spike overnight. remainder ros negative VITAL SIGNS: Maximum temperature (T-max) overnight 101.3, this morning temperature 98.9, pulse 87, respiratory rate 20, blood pressure 141/68, saturating 95% on room air. INTAKE AND OUTPUT: Dialysis yesterday removed 1K ultrafiltration and the patient made 900 mL of urine. PHYSICAL EXAMINATION: GENERAL: Sitting upright, legs dangling off the side of the bed, awake, alert and oriented in no distress. HEAD AND NECK: Extraocular muscles are intact. Moist mucous membranes. Neck is supple. Right internal jugular (IJ) PermaCath. CARDIOVASCULAR: S1, S2, regular. 1+ edema in the lower extremities bilaterally, 2+ radial pulse. RESPIRATORY: Decreased breath sounds on the right. the bases. ABDOMEN: Distended, nontender. EXTREMITIES: 1+ pitting edema bilaterally. LABORATORY DATA: White count 8.8, hemoglobin 7.9, and platelets 266. INR 2.0. Sodium 138, potassium 4.4, bicarbonate 25, corrected calcium 8.7. LFTs down trending. MICROBIOLOGY: Blood cultures drawn today and pending along with urine culture. IMAGING STUDIES: Chest x-ray done on 05/05/2017 with moderate to large right pleural effusion. INPATIENT MEDICATIONS: Reviewed by myself. The patient remains on Coumadin. Remainder of medications are unchanged from prior. ASSESSMENT AND PLAN: 1. Acute renal failure, now nonoliguric. His urine output has been improving. The patient continues to require hemodialysis for clearance. He has 1+ lower extremity edema. I would not aggressively ultrafiltrate him on hemodialysis at this point, as it would prolong the time to renal recovery. He does have dyspnea on exertion and a moderate to large right pleural effusion on chest x-ray. I suggest thoracentesis to help him for a respiratory point of view. 2. Shortness of breath with moderate to large right pleural effusion. The patient is going for thoracentesis today. I believe that will benefit him from a respiratory point of view. He has lower extremity edema as well. I would not aggressively ultrafiltrate him on dialysis as that can prolong the time to renal recovery. His breathing should improve after the thoracentesis is done and the moderate to large effusion is drained. 3. Fever. Maximum temperature (T-max) 101.3. The patient was pancultured. His effusion will also be tapped. 4. Subcapsular hematoma with hemoperitoneum. Hemoglobin has been in the high 7s and low 8s. The patient's international normalized ratio (INR) is coming up on Coumadin. If he needs blood transfusions, that can be arranged with hemodialysis. 5. Mechanical aortic valve replacement, on Coumadin with daily INR checks. Continue on araneus with dialysis as well. Plan of care discussed with Dr. Feldman. EDWIN
[2017-05-07] MEDS: WARFARIN SOD 5 MG TAB PO SCH (17:23)
[2017-05-07 20:00] VITALS: BP 164/77
[2017-05-07] MEDS: zolPIDEM TARTRATE 5 MG TAB PO PRN (20:24)
[2017-05-07] MEDS: **NOTE PATIENT COMMENT** MISC XX SCH (20:28)
--- NOTE | 2017-05-07 22:22 | IPN ---
DATE: 05/07/2017 SUBJECTIVE: The patient was seen this morning at the bedside. He had a thoracentesis done yesterday and 145 mL of fluid was drained and sent off for studies. He continues to have low grade temperatures overnight. T-max 100.1. His blood cultures drawn yesterday have no growth for 24 hours. His hemoglobin today is 8.1 and he is pending 2 unit packed red blood cells transfusion. His urine output has picked up significantly, but he still has a rising interdialytic creatine. The patient is in good spirits today. Denies any nausea, vomiting, diarrhea, has been ambulating. He does still has dyspnea on exertion. The remainder of review of systems is negative. OBJECTIVE: T-max overnight 100.1, current temperature 99.4, pulse 77, respiratory rate 12, blood pressure 142/67, saturating 97% on room air. Urine output yesterday 1375 mL. Urine output thus far today 23.50. Weight in the bed scale 107 kg, which has significantly increased in the previous 24 hours and likely an inaccurate recording. PHYSICAL EXAMINATION: The patient is awake, alert and oriented times four in no acute distress. His is present at the bedside. The patient is sitting up, legs dangling. Extraocular muscles are intact. Mucous membranes are moist. He has a right IJ PermCath. CARDIOVASCULAR: S1, S2 mechanical click. 2+ radial pulse. 1+ pitting edema in the lower extremities. RESPIRATORY: Fine crackles at right base. Otherwise clear. ABDOMEN: Distended. Deep palpation not performed. EXTREMITIES: 1+ pitting edema bilaterally. NEUROLOGIC: No focal deficit. PSYCHIATRIC: Appropriate mood and affect. LABORATORY: White count 9.1, hemoglobin 8.1, platelets 303, sodium 138, potassium 4.9, bicarbonate 26. Corrected calcium 8.9, magnesium 2.0, AST 77, ALT 72. Urine specific gravity 1.006. MICROBIOLOGY: Blood cultures drawn on May 06, no growth for 24 hours. Urine culture pending. Pleural effusion culture and Gram stain and fungal culture pending. IMAGING: Chest x-ray May 06, possible trace right basilar atelectasis, no obvious residual pleural effusion. INPATIENT MEDICATIONS: Reviewed by myself. The patient was given a one-time dose of Tylenol. He continues on Coumadin 5 mg. The remainder of his medications are unchanged from prior. PLAN: 1. Acute renal failure, acute tubular necrosis (ATN) , now nonoliguric in renal recovery. The patient's urine output has significantly been increasing. I would held off on dialyzing him today as his electrolytes are stable and his volume status is fairly acceptable, however, the patient was ordered for 2 unit packed red blood cell transfusion; and as we did not want him to be overloading we will arrange for transfusion with dialysis. His urinalysis shows a low specific gravity and the patient may become polyuric as he recovers renal function. For now, he does not require fluids. I expect he should be able to come off of dialysis within the next one to two weeks. At this time, he is still having intradialytic creatine rise and requires dialysis for clearance. He has been arranged for an acute chair in the outpatient hemodialysis unit in [place] on a Friday, , Friday schedule. 2. Shortness of breath. The patient had a thoracentesis with 145 mL drained. A subsequent chest x-ray did not show remaining effusion. He continues on room air. He does have lower extremity edema. I would not aggressively ultrafiltrate him on hemodialysis at this time for 2 reasons (1), his urine output has significantly picked up, he is making a dilute urine and he is in renal recovery and (2) aggressively ultra-filtrating him on dialysis would hamper his renal recovery. We will continue to monitor his volume status. He will receive 2 units of packed red blood cells today with dialysis. 3. Low grade fever. The patient spiked a temperature of 101.3 two days ago. He has now been having low-grade fevers. He has been rodrigez cultured. Blood cultures were negative for 24 hours. Pleural effusion studies are pending. 4. Subcapsular hematoma with hemoperitoneum. Hemoglobins have been in the high 7s and low 8s. He is going to receive 2 units packed red blood cells today. 5. Mechanical aortic valve. The patient continues on Coumadin. His INR is rising, 2.2 today.
[2017-05-08] MEDS: DICYCLOMINE 10 MG CAP PO SCH ×4 (00:18→17:20)
[2017-05-08 06:00] VITALS: BP 147/68
[2017-05-08 07:09] LABS: MEAN CORPUSCULAR HEMOGLOBIN 30.1 pg (27.0-33.0); MEAN CORPUSCULAR HGB CONC 32.4 g/dl (32.0-36.5); MEAN CORPUSCULAR VOLUME 93.1 fl (80.0-96.0); RED CELL DISTRIBUTION WIDTH 14.6 % (11.5-14.5); WHITE BLOOD COUNT 7.6 K/mm3 (4.0-10.0)
[2017-05-08 07:13] LABS: INR 2.39
[2017-05-08] MEDS: HumaLOG INSULIN (NovoLOG) PER UNIT SC SCH ×4 (07:30→21:00)
[2017-05-08 07:39] LABS: ALBUMIN/GLOBULIN RATIO 0.49 (1.00-1.93); CALCIUM LEVEL 7.4 MG/DL (8.8-10.2); CREATININE FOR GFR 5.74 MG/DL (0.70-1.30); GLOMERULAR FILTRATION RATE 10.5 (>42); MAGNESIUM LEVEL 1.7 MG/DL (1.8-2.4); TOTAL PROTEIN 6.1 GM/DL (6.4-8.2)
[2017-05-08] MEDS: SENOKOT S TAB PO SCH ×2 (08:41→21:00)
[2017-05-08] MEDS: CARVedilol 3.125 MG TAB PO SCH ×2 (08:41→21:55)
[2017-05-08] MEDS: PANTOPRAZOLE 40MG INJ (PROTONIX) (C9113) IV SCH ×2 (08:41→21:54)
[2017-05-08] MEDS: CAPSAICIN 0.025% CR 60 GM TOP SCH ×4 (08:42→21:56)
--- NOTE | 2017-05-08 11:42 | REP ---
Clinical: Evaluate for residual right effusion. Technique: PA and lateral. Comparison: 05/06/2017. Findings: Lateral view best demonstrates a small recurrent right pleural effusion as compared to prior examination. The visualized mediastinum and cardiac silhouette are stable. Double-lumen catheter with tip in the SVC. Linear plate-like atelectasis in the right mid lung zone unchanged. No further, new consolidation. No pneumothorax. Skeletal structures stable. Impression: Current examination demonstrates small recurrent right pleural effusion. Signed by Quan Patel MD 05/08/2017 11:33 A
--- NOTE | 2017-05-08 12:38 | IPN ---
DATE OF EXAMINATION: 05/08/2017 SUBJECTIVE: This morning, the patient tells me that he is feeling better. He is not feeling as nearly as short of breath. He denies any chest pain, fevers. He denies any chills overnight and has no other complaints. OBJECTIVE: VITAL SIGNS: Maximum temperature (Tmax) 100.3, temperature 99.4, pulse 80, respiratory rate 18, blood pressure (BP) 147/68, oxygen (O2) saturation 94% on room air. GENERAL: He is a pleasant elderly man sitting on the edge of his bed. He does not appear to be in any acute distress whatsoever. He is accompanied by his . HEENT: Cranial nerves II-XII are grossly intact. There is some elevation of his central venous pressure. He has moist mucous membranes. CARDIOVASCULAR EXAMINATION: S1, S2, regular. RESPIRATORY EXAMINATION: Is actually fairly clear today. He does have diminished breath sounds throughout the right base. ABDOMINAL EXAMINATION: Grossly obese. EXTREMITIES: There is 1+ edema bilaterally. He has a hemodialysis catheter in place. LABORATORY STUDIES: WBC 7.6, hemoglobin 9.4, hematocrit 29.1, platelet count 229. Chemistry panel: Sodium 138, potassium 4.0, chloride 98, bicarbonate 25, BUN 45 , creatinine 5.7. INR is 2.39 today. MICROBIOLOGY: All remains negative. No new imaging. ASSESSMENT AND PLAN: This is a 71-year-old man with acute renal failure. PROBLEMS: 1. Acute renal failure secondary to acute tubular necrosis (ATN) related to shock from intra-abdominal hemorrhage. The patient is doing quite well at this time. Continue to watch his renal function and hemodialysis as needed. He has been established with an outpatient dialysis in [place]. The patient is making more urine, making recovery. He looked quite optimistic. 2. Shortness of breath. Does appear to have resolved with blood transfusion and thoracentesis. He does appear to be doing much better today. He is comfortable on room air. 3. Fever. The patient has persistent low-grade temperatures of unclear etiology at this point. It does not appear as though there is any pneumonia associated with the effusion that was tapped. I will check a chest x-ray to make sure that it has not recurred. I will check an erythrocyte sedimentation rate (ESR) and C-reactive protein (CRP). Also, an echocardiogram and consult Dr. Yadira of infectious disease to rule out any other etiology we may have been missing. 4. Hemorrhagic hypovolemic shock, resolved. He is hemodynamically stable. 5. Shock liver secondary to the aforementioned intraabdominal hemorrhage. 6. Subcapsular hematoma with hemoperitoneum. His hemoglobin and hematocrit are stable. He did have a positive response to blood that was his right-sided pleural effusion appeared to be related to this and related to blood. 7. Acute blood loss anemia secondary to hemoperitoneum but likely some contributing factor related to renal disease, as well. Nephrology's help is greatly appreciated. He has had a positive response to blood. 8. Mechanical valve replacement. He is continued on Coumadin. He is close to becoming therapeutic of international normalized ratio (INR) of 2.39. 9. Hyponatremia, resolved. 10. Congestive heart failure. Volume status is being maintained via hemodialysis, and he is now making urine. Will check an echocardiogram. 11. Deep vein thrombosis (DVT) prophylaxis. Sequentials and thromboembolic deterrents (TEDs). He is on Coumadin. DISPOSITION: Pending physical therapy, being fever-free for 24 hours, and being able to ambulate without oxygen. He is improving daily. He may be approaching discharge in the future. [facility]
[2017-05-08 14:00] VITALS: BP 144/72
--- NOTE | 2017-05-08 14:12 | IPN ---
DATE: 05/08/2017 SUBJECTIVE: The patient was seen this morning at the bedside. He reports he walked around the unit with physical therapy. He has ambulated more today than he has done on previous days. He continues to note some dyspnea on exertion. He reports good oral intake. His is present at the bedside. The patient's urine output has significantly picked up. In the previous 24 hours he made close to 3 liters of urine. He received hemodialysis yesterday with 500 mL ultrafiltration and 2 units of packed red blood cells were transfused at that time. He continues to have some low grade fevers, T-max overnight 100.3. He is pending evaluation by infectious disease specialist. He remains off of antibiotics at this time. REVIEW OF SYSTEMS: Negative for headache, lightheadedness, chest pain, palpitations, nausea, vomiting, diarrhea. Positive for increasing urine output. Positive for dyspnea on exertion. Positive for improving lower extremity edema. Remainder of review of systems is negative. VITAL SIGNS: T-max overnight 100.3, current temperature 99.4, pulse 80, respiratory rate 18, blood pressure 147/68, saturating 94% on room air. INTAKE AND OUTPUT: Urine output yesterday 2950 mL. Hemodialysis output yesterday 500 mL. Weight on the bed scale today decreased at 98.7 kg. PHYSICAL EXAMINATION: GENERAL: Patient is awake, alert and oriented times four, seen in bed, in no acute distress. is present at the bedside. HEENT: Extraocular muscles are intact. Moist mucous membranes. NECK: Supple. Right IJ PermaCath in place. CARDIOVASCULAR: S1, S2 mechanical click. 2+ radial pulse. 1+ pitting edema of the lower extremities, appears less so than yesterday. RESPIRATORY: Decreased at bases, otherwise clear. ABDOMEN: Distended. Deep palpation not performed. Nontender. EXTREMITIES: Decreased edema in the periphery as compared to yesterday, still 1+. NEUROLOGIC: No focal deficit. PSYCHIATRIC: Appropriate mood and affect. GENITOURINARY (): No distended suprapubic bladder appreciated. LABORATORY: White count 7.6, hemoglobin 9.4, platelets 229, ESR 81, sodium 138, potassium 4.0, bicarbonate 25, magnesium 1.7, CRP 11.5, corrected calcium 9.0. Microbiology: Blood cultures drawn May 06 with no growth for 48 hours. Pleural fluid culture with no aerobic growth and no anaerobic growth. Pleural fluid fungal culture pending. IMAGING: Chest x-ray done today showed small recurrent right pleural effusion. INPATIENT MEDICATIONS: Reviewed by myself. The patient remains on Coumadin. He was started on Ambien as he reports trouble sleeping. No other significant medication changes. PLAN: 1. Acute renal failure, now in renal recovery, nonoliguric with improving urine output. Close to 3 liters in the past 24 hours. Will monitor the patient for polyuria. He will be assessed daily for dialysis needs. I suspect he may still need a few more sessions for clearance. He has been setup for an acute chair in the outpatient hemodialysis unit in [place] on a Friday, , Friday schedule. He continues to have an interdialytic rise in creatinine. I discussed with the patient regarding his likelihood for CKD as a result of this event. He may not recover to his baseline renal function. 2. Low grade fevers. Cultures have not come back positive. The patient has no leukocytosis. ESR and CRP are elevated. His effusion has recurred. Primary team has consulted Dr. May. 3. Shortness of breath. The patient's physical activity has increased. He does note some ongoing dyspnea on exertion, but he is ambulating farther than he has before. He is comfortable on room air. His lower extremity edema has improved from prior. His urine output has significantly picked up. He will be receiving dialysis for clearance and not ultra filtration. 4. Mechanical aortic valve. Patient continues on Coumadin. His INR has been coming up, today 2.4. DISCHARGE PLANNING: Patient is setup for an acute chair at the [place] dialysis unit on a Friday, and Friday schedule. He has good signs of renal recovery. I do not expect him to be dialysis dependent for to much longer. He continues to require dialysis at this moment for clearance. He would need to followup outpatient closely for renal recovery and creatinine plateau. I have discussed with him that his home medications will be changing upon discharge and as he comes closer to being ready for discharge, we will go over his medications with him.
[2017-05-08] MEDS: WARFARIN SOD 5 MG TAB PO SCH (17:20)
[2017-05-08] MEDS: **NOTE PATIENT COMMENT** MISC XX SCH (21:00)
[2017-05-08] MEDS: zolPIDEM TARTRATE 5 MG TAB PO PRN (21:55)
[2017-05-08 22:00] VITALS: BP 136/72
[2017-05-09] MEDS: DICYCLOMINE 10 MG CAP PO SCH ×4 (00:16→17:08)
[2017-05-09 06:00] VITALS: BP 169/78
[2017-05-09] MEDS: PANTOPRAZOLE 40MG INJ (PROTONIX) (C9113) IV SCH ×2 (06:27→20:30)
[2017-05-09 06:28] LABS: MEAN CORPUSCULAR HEMOGLOBIN 29.8 pg (27.0-33.0); MEAN CORPUSCULAR HGB CONC 31.6 g/dl (32.0-36.5); MEAN CORPUSCULAR VOLUME 94.4 fl (80.0-96.0); RED CELL DISTRIBUTION WIDTH 14.4 % (11.5-14.5); WHITE BLOOD COUNT 9.4 K/mm3 (4.0-10.0)
[2017-05-09 06:41] LABS: ALBUMIN 2.2 GM/DL (3.2-5.2); ALBUMIN/GLOBULIN RATIO 0.48 (1.00-1.93); CALCIUM LEVEL 7.6 MG/DL (8.8-10.2); CREATININE FOR GFR 6.52 MG/DL (0.70-1.30); MAGNESIUM LEVEL 1.8 MG/DL (1.8-2.4); POTASSIUM SERUM 4.3 MEQ/L (3.5-5.1); TOTAL PROTEIN 6.8 GM/DL (6.4-8.2)
[2017-05-09 07:05] LABS: INR 2.4
[2017-05-09] MEDS: HumaLOG INSULIN (NovoLOG) PER UNIT SC SCH ×4 (07:30→21:54)
[2017-05-09] MEDS: CARVedilol 3.125 MG TAB PO SCH ×2 (09:00→20:29)
[2017-05-09] MEDS: SENOKOT S TAB PO SCH ×2 (09:00→20:30)
[2017-05-09] MEDS: CAPSAICIN 0.025% CR 60 GM TOP SCH ×4 (09:43→21:55)
--- NOTE | 2017-05-09 11:12 | CR ---
DATE OF CONSULTATION: 05/08/2017 Sodium 138, potassium 4, chloride 98, bicarb 25, BUN 45, creatinine 5.7, glucose 126, calcium 7.4, magnesium 1.7, AST 67, ALT 65, alk phos 179, AST had peaked to 13,728, CRP 11.5. Albumin 2. Vancomycin random level on 04/28/2017 was 20.5. pleural fluid pH was 7.6, total nucleated cells 700 with mostly monocytes and macrophage. Hepatitis A, B and C serology were negative. Fungal smear and culture of fluid from pleural fluid are pending. Anaerobic and aerobic cultures are negative blood cultures are all negative times 6. IMAGING STUDIES: Chest x-ray Showed small recurrent right pleural effusion on 05/08 vascular ultrasound done on 05/03/2017 showed no evidence of DVT, left Funes's cyst. That was done on both lower extremities. CT of the abdomen was last done on 04/24/2017 which showed increased right pleural effusion, small to moderate progressive over atelectasis right lower lungs. Slight increase in the size of the subcapsular hematoma and increased size of the hemoperitoneum. On physical exam, T-max is 99.4, pulse 76, respirations 16, blood pressure 144/72, O2 sat 95% on room air. General appearance: Healthy looking elderly man in no acute distress, frustrated looking. Neck is supple. No bruits. No jugular venous distention. Heart: Normal S1, S2 with a mechanical click, faint systolic ejection murmur 1/ 6 at the left upper sternal border. Lungs: Diminished breath sounds at the bases but clear. Abdomen: Distended, diffuse hematoma with ecchymosis involving the whole abdomen. Back: No CVA or lumbosacral tenderness. Extremities: +1 edema on the right side trace edema on the left side. Venous stripping for coronary artery bypass graft (CABG) of the right leg. Neurologic: Exam intact. IMPRESSION: This Mr. Qureshi is a 71-year-old gentleman who unfortunately had multiple complications of laparoscopic cholecystectomy done on 04/18/2017. The patient developed a bleed with subclavicular hematoma. He has a history of aortic valve replacement and had been on Lovenox and Coumadin preoperatively. The patient presented to our hospital with hypovolemic shock from bleeding intra- abdominally. The patient has had low grade fever throughout this admission but with no evidence of infectious process. He received broad-spectrum antibiotics with meropenem and vancomycin for total of 10 days. The patient's antibiotics were discontinued on 05/03/2017. He remains with low grade fevers with a T-max of 100, but clinically has slowly improved. Labs have markedly improved, especially his liver function tests. His white count is normal. There is still no evidence of infection at this point. My suspicion is the patient had just an inflammatory fever due to the bleed. The blood in the abdominal cavity is quite an irritant and causing a lot of inflammation. He also had shock liver, acute kidney injury. All of this inflammation is probably the cause of his fever and I do not see any current evidence of infection. Although I would obtain a followup CT to make sure he has not developed a postoperative wound infection. The last CT was done on 04/24/2017 with so much blood in his abdominal cavity he is at risk of developing an abscess. The patient also had bacteremia from Klebsiella in March although not a common pathogen to cause endocarditis, it should be of concern with a mechanical heart valve. PLAN: 1. Schedule CT abdomen and pelvis tomorrow to followup on subcapsular hematoma and rule out abdominal abscess. 2. Schedule echocardiogram to rule out vegetation any evidence of valve infection. 3. Keep off IV antibiotics. I do not see any indication currently for resuming antibiotic. Will continue to follow. [facility]
--- NOTE | 2017-05-09 11:13 | REP ---
Clinical: Fever. Follow-up subcapsular hepatic hematoma. Comparison: 04/24/2017. Findings: Right lower lobe and right middle lobe consolidations with air bronchograms and small pleural effusion identified and improved compared to prior examination. Visualized heart and pericardium are stable. A large nonacute subcapsular hepatic hematoma is identified and appears relatively chronic as the density is now predominately of normal fluid density rather than that of acute hemorrhagic density as previously appreciated. However the subcapsular collection appears increased in size measuring roughly 16.3 x 16.5 x 6.5 cm.. Chronic inflammatory stranding as well as ascites along the bilateral pericolic gutters extends into the pelvis which appears minimally decreased when compared to prior examination. The hepatic parenchyma is essentially unchanged from prior examination and demonstrates a subtle area of low density irregularity along the inferior peripheral margin of the right lobe which may represent the area of infarction or prior laceration. Spleen, pancreas, bilateral adrenal glands and kidneys are relatively normal/stable. Surgical clips are identified in the gallbladder fossa suggesting prior cholecystectomy although a contained collection is noted in the gallbladder fossa which may be related to the hepatic fluid and ascites. The enteric system is without obstruction or free air to suggest perforation. Mural thickening at the cecum and ascending colon may reflect a secondary inflammatory colitis related to the hepatic hematoma and hemoperitoneum. Colonic and sigmoid diverticulosis noted without obvious acute diverticulitis. Pelvis demonstrates normal bladder and age appropriate prostate/seminal vesicles. No obvious adenopathy. Atherosclerotic changes to the aorta and vasculature noted without aneurysm. Musculoskeletal structures demonstrate age-related degenerative changes. Impression: 1. Right middle lobe and right lower lobe consolidations with small right pleural effusion appears slightly improved compared to prior examination. 2. Large subcapsular hepatic hematoma is increased from prior examination but relatively homogeneously of low density suggesting nonacute changes without definite acute hemorrhage. Associated hemoperitoneum along the bilateral pericolic gutters is similar to prior examination. 3. Small collection in the gallbladder fossa likely related to the above-mentioned subcapsular hepatic hematoma and hemoperitoneum. Surgical clips in the right upper quadrant suggest prior cholecystectomy. 4. Mural thickening to the cecum and ascending colon likely represents a secondary inflammatory colitis related to the surrounding hemoperitoneum and hepatic findings. Signed by Quan Patel MD 05/09/2017 09:53 A
--- NOTE | 2017-05-09 13:37 | IPN ---
DATE OF SERVICE: 05/09/2017 SUBJECTIVE: The patient is seen this morning at the bedside. He is in good spirits. He had physical therapy today and climbed stairs. He states his breathing continues to improve. His urine output was 1700 mL in the prior 24 hours. He remained afebrile overnight. He has been seen by the infectious disease specialist and had a CAT scan of the abdomen and pelvis done for fever workup and is also pending echocardiogram. REVIEW OF SYSTEMS: Negative for headache, lightheadedness, chest pain, palpitations, nausea, vomiting, diarrhea. Positive for improving lower extremity edema. Positive for increased exercise tolerance and lessened dyspnea on exertion. Remainder negative Temperature afebrile, 98.6. Pulse 67. Respiratory rate 18. Blood pressure 169/78. Saturating 95% on room air. Urine output 1700 mL. Intake not recorded. Weight on the bed scale today 99.8 kg. PHYSICAL EXAMINATION: GENERAL: Awake, alert and oriented times four, in no acute distress and good spirits this morning. HEAD AND NECK: Extraocular muscles intact. Moist mucous membranes. Neck is supple. Right internal jugular (IJ) PermaCath. CARDIAC: Mechanical click. Regular rate. 2+ radial pulses. Decreasing edema of the lower extremity on serial examination. RESPIRATORY: Comfortable on room air. Clear on the left, occasional rhonchus on the right. ABDOMEN: Distended. Deep palpation not performed. : No appreciable suprapubic distention. EXTREMITIES: Decreased edema on the lower extremities on daily serial examination. NEUROLOGIC: No focal deficits. PSYCHIATRIC: Appropriate mood and affect. LABS: White count 9.4, hemoglobin 9.9 and platelets 259. Sodium 138, potassium 4.3, bicarbonate 27. Interdialytic rise in creatinine 5.7 yesterday and 6.5 today. Corrected calcium 9.1. Magnesium 1.8. Microbiology: Urine culture with Stenotrophomonas maltophilia 60,000 colonies. Remainder of cultures remained negative, including pleural fluid and fungal smear. IMAGING: CT of the abdomen and pelvis done today shows right middle and right lower lobe consolidations with small right pleural effusion. Chronic large subcapsular hepatic hematoma, increased in size from prior, but without definite acute hemorrhage. Mural thickening to the cecum and ascending colon representing secondary inflammatory colitis. INPATIENT MEDICATIONS: Reviewed by myself. No changes in the past 24 hours. ASSESSMENT AND PLAN: 1. Acute renal failure, now nonoliguric with signs of renal recovery. He continues to have rise in interdialytic creatinine. His electrolytes remain stable. Dialysis is held today. He continues to require hemodialysis for clearance at this time, but overall his dialysis needs have lessened and I anticipate renal recovery in the coming days to week. 2. Low grade fevers. Dr. May has evaluated the patient. He is pending an echocardiogram. CAT scan is reviewed as above. His effusion has reoccurred, but gram stain and fungal smear were negative. He remains off of antibiotics and does not appear toxic clinically. Thus far, no clear source of infection for low grade fever. 3. Shortness of breath. Overall the patient's exercise tolerance continues to increase. Today, he tolerated stairs with physical therapy. He does have some consolidation on CAT scan on the right lung and his pleural effusion reoccurred. He remains comfortable on room air. His lower extremity edema continues to improve with increased urine output. He is receiving dialysis for clearance and not ultrafiltration. 4. Mechanical aortic valve. The patient continues on Coumadin. His INR is therapeutic. He is pending echocardiogram as part of his fever workup. 5. Hypertension. The patient is on Coreg 3.125 twice a day. He was on Imdur and losartan at home. His ARB is held and will continue to be held due to acute renal failure. His blood pressure was mildly elevated this morning. We will monitor for now and if persistent, his medications will be adjusted. For now, no changes. I would not want to tightly control his blood pressure while he is moving towards renal recovery. We want to allow for good renal perfusion. Systolic to the 150s is acceptable. MTDD
--- NOTE | 2017-05-09 14:33 | IPN ---
DATE: 05/09/2017 Mr. Qureshi seems to be doing fairly well today. He has been afebrile for 24 hours. He still has early satiety and bloating. Temperature is 98.6, pulse 67, respirations 18, blood pressure 169/78, oxygen saturation 95% on room air. HEART: Normal S1, S2 with a click. LUNGS: Clear. No wheezes, rales, or rhonchi. ABDOMEN: Distended with ecchymosis. EXTREMITIES: Trace edema. Urine culture had Stenotrophomonas with urinalysis has only 5 white cells and 5 red cells. The patient does not have urinary symptoms. CT of the abdomen shows large subcapsular hematoma, which has increased from prior examination, but homogeneous of low density suggesting acute changes without definite acute hemorrhage. There is pneumoperitoneum, small amount of fluid in the gallbladder fossa, most likely related to the hematoma, has thickening of the cecum representing colitis. The patient had one bowel movement today. Has urine output of 1400 mL yesterday. IMPRESSION: 1. Low grade fever, most likely related to hematoma and hemoperitoneum and chronic inflammation. 2. History of Klebsiella oxytoca bacteremia in March 2017 related to acute cholecystitis. This is not pathogen that would cause endocarditis. 3. History of aortic valve replacement. If the patient cannot have an echocardiogram during this admission and he is ready for discharge, that could be done as an outpatient through Dr. Pathak' office. PLAN: Keep off antibiotic. Agree that the fever comes from chronic irritation from bleeding. Infectious disease signing off.
--- NOTE | 2017-05-09 16:41 | IPN ---
DATE: 05/09/2017 SUBJECTIVE: This morning, the patient tells me that he is feeling well. He has some residual shortness of breath with activity but it is not significant. Denies chest pain, fevers, chills, nausea or vomiting. OBJECTIVE: VITAL SIGNS: Temperature 98.6, maximum temperature (t-max) 99.7, pulse 67, respiratory rate 18, blood pressure 169/70, oxygen saturation 95% on room air. GENERAL: He is a pleasant, elderly, man lying flat in bed. He is in no acute distress whatsoever. Breathing comfortably on room air. Conversant. HEENT: Cranial nerves II through XII are grossly intact. He has moist mucous membranes. CARDIOVASCULAR: S1, S2 regular. RESPIRATORY EXAM: Fairly clear. ABDOMINAL EXAM: Obese. He has diminished breath sounds at the right base. He has a hemodialysis catheter placed. EXTREMITIES: Trace edema bilaterally. LABORATORY STUDIES: WBC 9.4, hemoglobin 9.9, platelet count 259. Chemistry panel: Sodium 138, potassium 4.3, chloride 98, bicarbonate 27, BU 55, creatinine 6.5, up from 5.7 yesterday. INR is 2.4. ASSESSMENT AND PLAN: This is a 71-year-old man with acute renal failure. PROBLEM: 1. Acute renal failure secondary to ATN due to intraabdominal hemorrhage. At the present time, he is doing quite well and nephrology's help is greatly appreciated. He is monitored for his improving renal function. The plan is for him to receive hemodialysis inpatient tomorrow, potentially discharged as early as Friday with following up his regular schedule on Friday. His newly arranged scheduled as an outpatient is Friday, and Friday with weaning as he improves. 2. Shortness of breath. Does appear to have resolved with blood transfusion and thoracentesis. He is comfortable on room air. Today he is cleared by physical therapy (PT) without any oxygen requirement. 3. With the patient's low grade temperature, Dr. May's help is greatly appreciated, who recommended that he obtain an outpatient echocardiogram through his electrician station assistant at Dr. Pathak' office should these fevers persist. However, it is felt that these are likely related to retained hematoma. CT of the abdomen does not demonstrate any yina abscess. 4. Hemorrhagic hypovolemic shock, resolved. 5. Shock liver related to the aforementioned intraabdominal hemorrhage. 6. Subscapular hematoma and hemoperitoneum. His hemoglobin and hematocrit are stable. This is likely the etiology for his fever. 7. Mechanical replacement. His INR is 2.4 today. We will continue him on Coumadin. 8. Hyponatremia, resolved. 9. Congestive heart failure (CHF). Does appear to be improving with diuresis. 10. Deep vein thrombosis (DVT) prophylaxis. He is on Coumadin. DISPOSITION: Today he has been cleared by physical therapy (PT). We have arranged for him to have home services. The plan is for him to undergo hemodialysis tomorrow and potentially be discharged on Friday with followup with Dr. Pathak' office for an outpatient echocardiogram and with nephrology regarding his renal function, which is expected to improve, and with general surgery regarding his persistent resolving intraabdominal hematoma. He is provided a prescription for a rolling walker. He should likely have a repeat chest x-ray completed in the outpatient setting for followup of recurrence of his right pleural effusion related to his intraabdominal hematoma. We will continue to follow along this patient with you. Should you have any questions, please do not hesitate to call.
[2017-05-09] MEDS: WARFARIN SOD 5 MG TAB PO SCH (17:08)
[2017-05-09] MEDS: oxyCODONE 5MG TAB PO PRN (20:30)
[2017-05-09] MEDS: zolPIDEM TARTRATE 5 MG TAB PO PRN (20:30)
[2017-05-09] MEDS: **NOTE PATIENT COMMENT** MISC XX SCH (21:55)
[2017-05-09 22:00] VITALS: BP 145/65
[2017-05-10] MEDS: DICYCLOMINE 10 MG CAP PO SCH ×3 (00:22→12:00)
[2017-05-10] MEDS: oxyCODONE 5MG TAB PO PRN (00:22)
[2017-05-10 06:00] VITALS: BP 135/83
[2017-05-10 06:04] LABS: INR 2.44
[2017-05-10 06:20] LABS: ALBUMIN 2.2 GM/DL (3.2-5.2); ALBUMIN/GLOBULIN RATIO 0.47 (1.00-1.93); BILIRUBIN,TOTAL 1.1 MG/DL (0.2-1.0); CALCIUM LEVEL 7.7 MG/DL (8.8-10.2); CREATININE FOR GFR 6.41 MG/DL (0.70-1.30); GLOMERULAR FILTRATION RATE 9.2 (>42); MAGNESIUM LEVEL 1.7 MG/DL (1.8-2.4); POTASSIUM SERUM 4.2 MEQ/L (3.5-5.1); TOTAL PROTEIN 6.9 GM/DL (6.4-8.2)
[2017-05-10 06:51] LABS: MEAN CORPUSCULAR HEMOGLOBIN 30.1 pg (27.0-33.0); MEAN CORPUSCULAR HGB CONC 32.5 g/dl (32.0-36.5); MEAN CORPUSCULAR VOLUME 92.7 fl (80.0-96.0); RED CELL DISTRIBUTION WIDTH 14.3 % (11.5-14.5); WHITE BLOOD COUNT 9.2 K/mm3 (4.0-10.0)
[2017-05-10] MEDS: HumaLOG INSULIN (NovoLOG) PER UNIT SC SCH ×2 (07:30→12:00)
[2017-05-10] MEDS: PANTOPRAZOLE 40MG INJ (PROTONIX) (C9113) IV SCH (09:00)
[2017-05-10] MEDS: CAPSAICIN 0.025% CR 60 GM TOP SCH ×2 (09:00→13:00)
[2017-05-10] MEDS: SENOKOT S TAB PO SCH (09:00)
[2017-05-10 10:03] VITALS: BP 135/83
[2017-05-10] MEDS: CARVedilol 3.125 MG TAB PO SCH (10:03)
[2017-05-10] MEDS ORDERED: CARV3.12 PO (10:57)
[2017-05-10] MEDS ORDERED: COUM7.5T PO (10:58)
--- NOTE | 2017-05-10 15:32 | IPN ---
DATE: 05/10/2017 SUBJECTIVE: The patient is seen today at the bedside. He is in very good spirits. Reports no complaints overnight. His urine output continues to significantly bulk picker. He made 3825 in the past 24 hours. I have counseled him regarding increased fluid intake. He is pending discharge today with followup closely as an outpatient. His creatinine has plateaued. REVIEW OF SYSTEMS: Negative for headache, chest pain, palpitations, nausea, vomiting, diarrhea, dysuria. Positive for improving dyspnea on exertion, improving lower extremity edema, improving abdominal distention. Remainder of review of systems is negative. OBJECTIVE: Temperature 98.7, pulse 93-105, respiratory rate 18, blood pressure 135/83, saturating 96% on room air. Intake and output: Urine output in the past 24 hours 3825. Weight in the bed scale today 99.2 kg. PHYSICAL EXAMINATION: Patient is sitting upright in bed. is present at bedside. Alert and oriented times four in good spirits. HEAD AND NECK: Extraocular muscles intact. Moist mucous membranes. Neck veins not distended. Right internal jugular (IJ) Perm-A-Cath. CHEST: S1, S2, mechanical click. Radial pulse 2+. Trace edema in the extremities, decreased on serial exam. RESPIRATORY: Decreased at base; otherwise clear air entry throughout. NEUROLOGIC: No deficits. PSYCHIATRIC: Appropriate mood and affect. LABORATORY DATA: Sodium 138, potassium 4.2, bicarbonate 25, BUN 63, creatinine 6.4 from 6.5 yesterday, glucose 109, corrected calcium 9.2, magnesium 1.7. AST 75, ALT 74. Hemoglobin 9.9, white count 9.2. IMAGING: Abdomen and pelvis CT done yesterday, May 09, showed unremarkable kidneys. Also showed right middle and right lower lobe consolidation with a small right pleural effusion. Showed large subscapular hepatic hematoma without definite acute hemorrhage and mural thickening of the cecum and ascending colon. INPATIENT MEDICATIONS: Reviewed by myself. No change in the past 24 hours. PLAN: 1. Acute renal failure secondary to acute tubular necrosis (ATN), now in renal recovery. Creatinine has plateaued. Patient is making anywhere from 2-3 liters of urine a day. He most likely will not require further hemodialysis, but for now we will not remove the Perm-A-Cath until a downward trend in serum creatinine is established as an outpatient. He will be seen in the office on Friday with labs. I have counseled him regarding nephrotoxic medications to avoid and have reviewed his discharge medications. We will see how much recovery and renal function he achieves in the outpatient setting. 2. Volume status. The patient is in the polyuric phase of renal recovery with dilute urine output. I have encouraged him for oral hydration. His lower extremity edema has significantly improved in the past 72 hours, and his exercise tolerance has also picked up. He is comfortable on room air and cleared by physical therapy. 3. Low-grade temperature. Patient has been afebrile the previous 24 hours. Infectious disease (ID) input is noted by Dr. May. Most likely related to inflammation from hematoma. 4. Mechanical replacement of aortic valve with therapeutic INR. Continues on Coumadin. DISCHARGE PLAN: Patient is stable for discharge today from a renal point of view. I do not anticipate that he will need to continue hemodialysis as an outpatient. He has not had further rise in interdialytic creatinine. He will be seen in 48 hours in the office on Friday with repeat chemistry, complete blood count (CBC), and INR. I have counseled him regarding renal diet, liberal fluid intake, discharge medications, and followup in the office. Plan of care is discussed with Dr. Mary Feldman.
--- NOTE | 2017-05-10 16:50 | IPN ---
DATE: 05/10/2017 SUBJECTIVE: Patient is apparently cleared for discharge today. The initial plan reported to me by Dr. 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 He was cleared yesterday by physical therapy for discharge. The patient is eager to go after his long hospitalization. Vital signs most recently show a temperature of 98.7, pulse of 105, respirations of 18 and a blood pressure of 135/83. Intake and output on 05/09 show 960 mL in and 3825 out. He has had 1500 mL of urine output today. PHYSICAL EXAMINATION: The patient is alert and oriented. Skin is warm and dry. Abdomen shows that his incisions are healing well and his broad area of bruising is fading quite a bit. LABORATORY DATA: Labs show white count of nine, hemoglobin 10, hematocrit of 30. Chemistry profile shows a BUN of 63, creatinine 6.4, and this compares to a BUN of 55 and a creatinine of 6.5 on 05/09. His total protein is 6.9 with an albumin of 2.2. IMPRESSION: Doing well now with stable renal function. He had a followup CT on 05/09 which showed his persistent subcapsular hematoma of the liver and some associated findings. PLAN: The patient is cleared for discharge. He is to followup with nephrology on Friday. He has a dialysis catheter in place. His medications have been addressed by Dr. Mary Feldman. He is to followup with Dr. Monson in the next two weeks or so and with his primary provider in the next week. EDWIN
--- NOTE | 2017-05-12 13:42 | IPN ---
DATE: 05/01/2017 SUBJECTIVE: Patient was seen and examined at the bedside today morning. Patient has been downgraded to the progressive care unit (PCU) now. Patient continues to be oliguric. There are no signs of renal improvement at this time. He is still hemodialysis dependent. Today is patient's regular day of dialysis. REVIEW OF SYSTEMS: Patient denies any fever, chills, rigors, headache, nausea, vomiting, chest pain. He does report some shortness of breath. He reports abdominal distention and decreased appetite. Rest of review of systems is negative. OBJECTIVE: Vital signs: Temperature is 97 degrees Fahrenheit, blood pressure is 136/87, pulse is 76, respiratory rate of 18, saturating 97% on room air. Intake and output: Urine output recorded is 310 mL so far today since overnight. Weight in the bed scale is 107.2 kg. PHYSICAL EXAMINATION: GENERAL: Patient is awake, alert, oriented times three, lying in bed. No apparent distress. HEAD AND NECK: Extraocular muscles intact. Pupils equally round and reactive to light. Mucous membranes are moist. Patient has a right internal jugular (IJ) tunneled hemodialysis catheter. CARDIOVASCULAR: S1, S2, regular rate. No murmur, rub, or gallop. RESPIRATORY: Decreased breath sounds at the bases. Decreased vocal resonance at the bases as well. ABDOMEN: Soft, distended. Tympanitic percussion. Multiple ecchymoses all over the abdomen. GENITOURINARY: No [place] at this time. No hernias noted. MUSCULOSKELETAL: No clubbing or cyanosis. No edema of the extremities. Pulses are 2+. CENTRAL NERVOUS SYSTEM: No focal neurologic deficit. Power is 5/5 in bilateral upper extremities. PSYCHIATRIC: Patient has a depressed mood. LABORATORY REVIEW: CBC showed a WBC of 14.4, hemoglobin 8.3, platelets of 310. INR is 1.6. BMP showed sodium 132, potassium 4.7, chloride 93, bicarbonate 22, BUN 115, creatinine is 9.6, calcium 7.4. Total bilirubin 2.3, albumin is 2. CURRENT INPATIENT MEDICATIONS: Patient's medications were all reviewed by me. Heparin drip has been stopped at this time. There is no change in the medications today as compared with yesterday. ASSESSMENT: A 71-year-old male status post laparoscopic cholecystectomy. Postoperative course was complicated by hemorrhagic shock, subcapsular liver hematoma, hemoperitoneum, and acute renal failure. RECOMMENDATIONS AND PLAN: 1. Acute oliguric renal failure. Patient continues to be oliguric at this time ; however, urine output is slightly better today as compared with yesterday, but there are no signs of improvement in the renal function at this time. Patient is still hemodialysis dependent. Patient will get another session of hemodialysis today in the afternoon. 2. Shock liver secondary to hemorrhagic shock and ischemia along with subcapsular hematoma. Liver function continues to improve. Continue the supportive measures at this time. 3. Fever spikes. Patient is on empiric meropenem. Cultures are negative so far. Right IJ temporary hemodialysis catheter was removed, and patient has a permanent catheter now. 4. Shortness of breath and fluid overload. Volume status is being optimized with hemodialysis and ultrafiltration. 5. History of mechanical aortic valve. Patient is being anticoagulated with Coumadin now. 6. Anemia secondary to end-stage renal disease. Patient was started on Aranesp. Hemoglobin is 8.3. No need of blood transfusion at this time. The plan of care was discussed with the patient and patient's today morning at the bedside. EDWIN
--- NOTE | 2017-05-16 19:33 | DSES ---
DATE OF ADMISSION: 04/20/2017 DATE OF DISCHARGE: 05/10/2017 ADMISSION DIAGNOSIS: Subcapsular liver hematoma. DISCHARGE DIAGNOSES Subcapsular liver hematoma with acute on chronic renal failure, mechanical aortic valve. HOSPITAL COURSE: The patient is a 71-year-old male who presented on April 20 with increasing abdominal pains and distension along with some weakness that occurred after having a laparoscopic cholecystectomy on Friday, April 18. He was discharged from surgery on April 18 as an outpatient surgery, restarted back on his anticoagulation that evening due to history of mechanical aortic valve. This was upon recommendation from his dye feeder and his primary. Surgery was uneventful. We were extremely cautious to make sure that there was no bleeding intraoperatively. There was no visualized bleeding whatsoever. Procedure went completely as planned. Postoperatively he did well in the recovery room and was discharged home. Over the next day he started to have some increasing pain in the right upper quadrant. Went to [facility], where they did a very limited workup and discharged him home, saying that he was having gas pains. When he became increasingly weak, he was brought into the hospital on the April 20, complaining of severe right upper quadrant pain that was getting worse with deep breaths. In the ER here, he had a large right upper quadrant subcapsular liver hematoma that was identified on a CT. He had a stable hemoglobin on admission, though, at 13.6, but due to the large size of the hematoma, he was admitted to the hospital. Anticoagulation was reversed. Over the next 24 hours he started to have increasing abdominal distension. His hemoglobin continued to drop from 13.6 down to 9.8. Repeat CT was done on the April 24, which showed increase in size of the liver hematoma, and his hemoglobin continued to drop, so after receiving 2 units of blood on April 20, another one on April 21, another one on April 22, he was transferred to the intensive care unit (ICU). He was also oliguric. Had a central line catheter placed for fluid hydration and dialysis catheter placed for dialysis. His liver enzymes continued to creep up every day with bilirubin slowly elevating. AST, ALT, alkaline phosphatase continued to rise. They were in the 1000s and 2000s on the April 21. By the morning of April 22, AST had gone up to 13,000. Because of that, I was concerned of this increasing liver hematoma causing some ischemia and liver injury. I made a call to [facility] and spoke with their product development worker. When I explained the situation as well as his labs, he recommended that we transfer him to them so that they could further monitor him. They were concerned that liver enzymes of that extent may be potentially irreversible; however, they wanted to be able to evaluate him and agreed that we should be transferring him to a tertiary care facility. He also mentioned that he did not believe that this was due to surgery, rather it was likely due to his anticoagulation, since it was subcapsular, and did not feel that this was directly related to surgery itself; however, there were no beds available there, so they recommend we contact [facility]. [facility] said that since this clement's liver enzymes were so high, he would not be a candidate for a liver transplant; therefore, they had nothing else to offer other than what we could offer, so they recommended he stay here. The patient at this time has an NG tube in place. He is in the ICU. Blood pressures are controlled. Hemoglobins were stable. He received a few more units of blood. Over the next couple of days his labs continued to improve slowly. Liver enzymes continued to show significant improvement every day. Ammonia levels were elevated for a couple of days, up in the 50s and 60s, however, returned back down into the 30s by April 23. Bilirubins continued to rise up to maximum at 2.6 on April 30, likely secondary to the resolving hematoma; however, after April 30 they continued to resume back to normal as well. Over the next week he continued to improve with physical therapy. Also was receiving dialysis and started to have increased urine outputs on his own aside from dialysis. He had a consult with Dr. Macias, who placed a Perma-Cath for outpatient dialysis, which was finally set up on 05/09/2017. At this point he also was therapeutic, resuming his Coumadin. Once his Coumadin was therapeutic, he had the outpatient dialysis set up, and he was cleared by physical therapy on May 10, he eventually was discharged home to continue with outpatient dialysis with the hopes that he would only need this temporarily due to the acute tubular necrosis (ATN) from the liver injury. CONSULTATIONS DURING THE STAY: The patient had a consults with internal medicine, Dr. Guerrero for nephrology, Dr. May, infectious disease, and coverage specialist, Dr. Huntley. The patient was eventually discharged home, again, on May 10. Doing well. Abdomen was soft, nontender, nondistended. Tolerating diet, ambulating appropriately, going up and down the stairs. The large abdominal bruising was significantly improved. He had no problems or questions prior to discharge. No drains in place. Incisions were all clean, dry, and intact. He has a plan to followup with me in the office as an outpatient in about 2 weeks. He will also continue to followup with his primary doctor to manage his Coumadin levels and followup with nephrology and dialysis. EDWIN
--- NOTE | 2017-06-11 10:28 | RO ---
DATE OF PROCEDURE: 04/30/2017 PREPROCEDURE DIAGNOSIS: Acute renal failure. POSTPROCEDURE DIAGNOSIS: Acute renal failure. PROCEDURE: Ultrasound with fluoroscopic guided right internal jugular vein 19 cm tip to cuff PermCath insertion. SURGEON: Dr. Sher Macias. PRECISION ASSEMBLY INSPECTOR: None. ANESTHESIA: Local with 14 mL of 2% lidocaine. ESTIMATED BLOOD LOSS: CONTRAST: None. COMPLICATIONS: None. DRAINS: None. SPECIMENS: None. IMPLANTS: Right internal jugular vein 19 cm tip to cuff EVENMORE hemodialysis catheter. INDICATION: The patient is a 71-year-old male with acute renal failure who requires access for hemodialysis. Patient will undergo placement of a right possible left internal jugular vein PermCath. Risks, benefits and alternative treatment options were discussed with the patient. PROCEDURE: The patient was taken to the angiography suite and placed supine on the angiography room table and then prepped and draped in a standard surgical fashion. The right internal jugular vein was evaluated with ultrasound and noted to be widely patent, easily compressible and free of thrombus. The ultrasound was used to guide cannulation of the right internal jugular vein with concurrent real-time ultrasound visualization of the entry of the needle into the right internal jugular vein with a hard copy image preserved. The micropuncture wire was then advanced through the micropuncture needle which was upsized to a micropuncture sheath. An Amplatz wire was advanced through the micropuncture sheath which was then upsized to a introducer sheath. The catheter was tunneled through a puncture wound in the right chest, brought out through a puncture wound at the right internal jugular vein entry site and advanced through the introducer sheath which was peeled away and removed. Both ports were aspirated and noted to aspirate easily and then flushed with heparinized saline. The catheter was secured to the right chest using #2-0 Prolene suture. The puncture wound in the right neck was closed using an inverted interrupted #3-0 Monocryl suture. Dressings were applied. Patient tolerated the procedure well. All instrument, sponge and needle counts were correct at the end of the case. There were no complications. Dr. Macias was present for and directed the entire case. Patient was transferred to the holding area and subsequently to the floor in stable condition. The PermCath is stable for use for hemodialysis access. RADIOLOGICAL SUPERVISION INTERPRETATION: Ultrasound of the right internal jugular vein showed the right internal jugular vein to be easily compressible, free of thrombus and widely patent. Ultrasound was used to guide cannulation with concurrent real-time visualization of the entry of the needle into the right internal jugular vein with a hard copy image preserved. The right internal jugular vein was then sequentially dilated under fluoroscopic guidance and an introducer sheath positioned. The catheter was advanced through the introducer sheath and positioned with the tip in the superior vena cava/right atrial junction. Final fluoroscopic image shows the catheter to be in good position and good alignment with no pneumo- or hemothorax noted. The catheter is stable for use for hemodialysis access.
== END 2017-05-10 13:40 | disposition home health service (06) | DRG 907 ==
LOC: M ED 08:53 → M ED INP 11:36 → M PCU 14:09 → M ICU 04-21 21:17 → M PCU 05-01 02:33 → M MS5PR 05-06 17:38
PROVIDERS: ADMIT Surgery; ATTEND Surgery
PROC: 0FT44ZZ Resection of Gallbladder, Percutaneous Endoscopic Approach (ICD-10-PCS; 2017-04-18)
PROC: 30253N1 (ICD-10-PCS; principal; 2017-04-20)
PROC: 02HV32Z Insertion of Monitoring Device into Superior Vena Cava, Percutaneous Approach (ICD-10-PCS; 2017-04-21)
PROC: 30253K1 (ICD-10-PCS; 2017-04-22)
PROC: 02HV33Z Insertion of Infusion Device into Superior Vena Cava, Percutaneous Approach (ICD-10-PCS; 2017-04-22)
PROC: 5A1D60Z (ICD-10-PCS; 2017-04-22)
PROC: 3E0336Z Introduction of Nutritional Substance into Peripheral Vein, Percutaneous Approach (ICD-10-PCS; 2017-04-22)
PROC: 02HV33Z Insertion of Infusion Device into Superior Vena Cava, Percutaneous Approach (ICD-10-PCS; 2017-04-30)
PROC: 0W993ZZ Drainage of Right Pleural Cavity, Percutaneous Approach (ICD-10-PCS; 2017-05-06)
DX: K91.870 Postprocedural hematoma of a digestive system organ or structure following a digestive system procedure (principal); N17.0 Acute kidney failure with tubular necrosis; K72.00 Acute and subacute hepatic failure without coma; J96.01 Acute respiratory failure with hypoxia; E87.1 Hypo-osmolality and hyponatremia; E87.2 Acidosis; D62 Acute posthemorrhagic anemia; J90 Pleural effusion, not elsewhere classified; J98.11 Atelectasis; E46 Unspecified protein-calorie malnutrition; D68.32 Hemorrhagic disorder due to extrinsic circulating anticoagulants; T81.19XA Other postprocedural shock, initial encounter; Y83.6 Removal of other organ (partial) (total) as the cause of abnormal reaction of the patient, or of later complication, without mention of misadventure at the time of the procedure; K21.9 Gastro-esophageal reflux disease without esophagitis; F41.9 Anxiety disorder, unspecified; I25.10 Atherosclerotic heart disease of native coronary artery without angina pectoris; E78.5 Hyperlipidemia, unspecified; J30.9 Allergic rhinitis, unspecified; I12.9 Hypertensive chronic kidney disease with stage 1 through stage 4 chronic kidney disease, or unspecified chronic kidney disease; K22.70 Barrett's esophagus without dysplasia; N40.0 Benign prostatic hyperplasia without lower urinary tract symptoms; R91.1 Solitary pulmonary nodule; H35.30 Unspecified macular degeneration; G43.B0 Ophthalmoplegic migraine, not intractable; E87.5 Hyperkalemia; E83.51 Hypocalcemia; E88.09 Other disorders of plasma-protein metabolism, not elsewhere classified; M54.5 Low back pain; G47.00 Insomnia, unspecified; R73.9 Hyperglycemia, unspecified; D72.829 Elevated white blood cell count, unspecified; H40.9 Unspecified glaucoma; D63.1 Anemia in chronic kidney disease; M54.2 Cervicalgia; Z79.01 Long term (current) use of anticoagulants; Z95.1 Presence of aortocoronary bypass graft; Z87.442 Personal history of urinary calculi; Z79.82 Long term (current) use of aspirin; Z79.899 Other long term (current) drug therapy; Z90.49 Acquired absence of other specified parts of digestive tract

== ENCOUNTER → 2017-05-12 | Outpatient (REF) | payer MEDICARE, BC ==
[~2017-05-12] MED LIST changes: +ASPI81TA24 PO; +CARV3.12 PO; +CHLORSP MT; +COUM7.5T PO; +EYECAP PO; +INSUHUMDS SC; +MORP4SYR IV; +NEXI20CA PO; +ONDA4VLL IV; +OXYCO5TA PO; +PROT40IN4 IV; +SENN1TAB2 PO; +SENO8.6T10 PO; +VITA100066 PO
[2017-05-12 18:29] LABS: INR 3.43
== END ==
LOC: M LAB REF 17:05
PROVIDERS: ATTEND Internal Medicine Nephrology
DX: Z79.01 Long term (current) use of anticoagulants (principal)

== ENCOUNTER → 2017-05-19 | Outpatient (REF) | payer MEDICARE, BC ==
[2017-05-20 20:18] LABS: BILIRUBIN,TOTAL 0.9 MG/DL (0.2-1.0)
== END ==
LOC: M LAB REF 17:16
PROVIDERS: ATTEND Nurse Practitioner Adult Health
DX: R74.8 Abnormal levels of other serum enzymes (principal)

== ENCOUNTER → 2018-05-25 | Outpatient (REF) | payer MEDICARE, BC ==
[2018-05-25 18:48] LABS: NT-PRO BNP 275 PG/ML (<125)
== END ==
LOC: M LAB REF 17:54
DX: R06.00 Dyspnea, unspecified (principal)
CPT/HCPCS: 83880

== ENCOUNTER → 2018-06-16 | Outpatient (CLI) | payer MEDICARE, BC ==
[2018-06-16 16:31] LABS: BASO % 0.4 % (0.0-1.0); EOS # 0.1 10^3/uL (0.0-0.50); EOS % 2.1 % (0.0-3.0); HEMATOCRIT 40.9 % (42.0-52.0); HEMOGLOBIN 13.3 g/dl (13.5-17.5); IMMATURE GRANULOCYTE % 0.3 % (0-3.0); LYMPH # 1.6 10^3/uL (1.5-4.5); LYMPH % 24.5 % (24.0-44.0); MEAN CORPUSCULAR HGB CONC 32.5 g/dl (32.0-36.5); MEAN CORPUSCULAR VOLUME 95.3 fl (80.0-96.0); MONO # 0.8 10^3/uL (0.0-0.8); MONO % 11.4 % (0.0-5.0); NEUTROPHILS # 4.1 10^3/uL (1.8-7.7); NEUTROPHILS % 61.3 % (36.0-66.0); PLATELET COUNT, AUTOMATED 204 10^3/uL (150-450); RED BLOOD COUNT 4.29 10^6/uL (4.30-6.10); RED CELL DISTRIBUTION WIDTH 14.4 % (11.5-14.5); WHITE BLOOD COUNT 6.7 10^3/uL (4.0-10.0)
== END ==
LOC: M LAB 15:41
DX: I25.10 Atherosclerotic heart disease of native coronary artery without angina pectoris (principal)
CPT/HCPCS: 85027

== ENCOUNTER → 2018-06-18 | Outpatient (REF) | payer MEDICARE, BC ==
[2018-06-18 13:26] LABS: RHEUMATOID FACTOR QUANT < 10.0 IU/ML (<15.0); TOTAL PROTEIN 7.8 GM/DL (6.4-8.2)
[2018-06-18 13:32] LABS: TOTAL 25(OH) VITAMIN D 28.3 NG/ML (30.0-100.0)
[2018-06-18 13:45] LABS: ERYTHROCYTE SEDIMENTATION RATE 9 mm/hr (0-20)
[2018-06-18 15:32] LABS: ESTIMATED AVERAGE GLUCOSE 126 MG/DL (60-110)
[2018-06-24 08:07] LABS: ANTI DOUBLE STRAND-DNA AB <1 IU/mL (0-9); ANTINUCLEAR ANTIBODIES DIRECT Positive (Negative); RNP ANTIBODIES <0.2 AI (0.0-0.9); SJOGREN'S ANTI SS-A <0.2 AI (0.0-0.9); SJOGREN'S ANTI SS-B <0.2 AI (0.0-0.9); SMITH ANTIBODIES <0.2 AI (0.0-0.9); VITAMIN B1 LEVEL WHOLE BLOOD 105.9 nmol/L (66.5-200.0); VITAMIN B6,PYRIDOXAL PHOSPHATE 5.5 ug/L (5.3-46.7); VITAMIN E(ALPHA TOCOPHEROL) 17.2 mg/L (9.0-29.0); VITAMIN E(GAMMA TOCOPHEROL) 1.3 mg/L (0.5-4.9)
[2018-06-24 08:25] LABS: ALBUMIN 4.79 GM/DL (3.29-5.55); ALBUMIN % 61.4 % (55.8-66.1); ALPHA-1-GLOBULIN % 3.5 % (2.9-4.9); ALPHA-1-GLOBULINS 0.27 GM/DL (0.17-0.41); ALPHA-2-GLOBULINS 0.64 GM/DL (0.42-0.99); ALPHA-2-GLOBULINS % 8.2 % (7.1-11.8); BETA-1-GLOBULINS 0.55 GM/DL (0.28-0.60); BETA-2-GLOBULINS % 6.4 % (3.2-6.5); GAMMA GLOBULIN % 13.5 % (11.1-18.8); GAMMA GLOBULINS 1.05 GM/DL (0.65-1.58)
== END ==
LOC: M LABNEURO 08:00
DX: E11.9 Type 2 diabetes mellitus without complications (principal); E55.9 Vitamin D deficiency, unspecified
CPT/HCPCS: 84165

== ENCOUNTER 2019-01-18 09:48 | Emergency (ER) | payer MEDICARE, BC ==
[~2019-01-18] VITALS: Ht 182.9 cm; Wt 93.6 kg
[~2019-01-18 09:48] MED LIST changes: -ASPI1TAB PO; +ASPI81TA26 PO; -LOSA50TA20 PO; +LOSA50TA88 PO; +MORP4INJ5 IV; -MORP4SYR IV; -SENN1TAB2 PO; +SENN1TAB40 PO
[2019-01-18] MEDS ORDERED: ISOS60TA2 (10:05)
[2019-01-18] MEDS ORDERED: ASPI81TA85 PO (10:05)
[2019-01-18] MEDS ORDERED: ENOX80IN3 (10:05)
[2019-01-18] MEDS ORDERED: NEXI20CA PO (10:05)
[2019-01-18] MEDS ORDERED: LOSA50TA88 PO (10:05)
[2019-01-18] MEDS ORDERED: CIPRODEX (10:05)
[2019-01-18] MEDS ORDERED: RANO5TAB PO (10:05)
[2019-01-18] MEDS ORDERED: calcium (10:05)
[2019-01-18] MEDS ORDERED: METO1TAB32 PO (10:05)
[2019-01-18] MEDS ORDERED: FERR325T18 PO (10:05)
[2019-01-18] MEDS ORDERED: [UNRECOGNIZED DRUG - OTHER] (10:05)
[2019-01-18] MEDS ORDERED: CVS400LI PO (10:05)
[2019-01-18] MEDS ORDERED: CRES40TA PO (10:05)
[2019-01-18] MEDS ORDERED: GABA-1171 PO (10:05)
[2019-01-18] MEDS ORDERED: PRAL1INJ (10:06)
[2019-01-18] MEDS ORDERED: LEXA5TAB13 PO (10:06)
[2019-01-18] MEDS ORDERED: AMLO10TA5 PO (10:06)
[2019-01-18 11:21] LABS: BASO % 0.4 % (0.0-1.0); EOS # 0.1 10^3/uL (0.0-0.50); EOS % 1.6 % (0.0-3.0); HEMATOCRIT 43.9 % (42.0-52.0); HEMOGLOBIN 14.5 g/dl (13.5-17.5); LYMPH # 1.4 10^3/uL (1.5-4.5); LYMPH % 19.7 % (24.0-44.0); MEAN CORPUSCULAR HEMOGLOBIN 32.8 pg (27.0-33.0); MEAN CORPUSCULAR VOLUME 99.3 fl (80.0-96.0); NEUTROPHILS # 4.3 10^3/uL (1.8-7.7); PLATELET COUNT, AUTOMATED 191 10^3/uL (150-450); RED BLOOD COUNT 4.42 10^6/uL (4.30-6.10); WHITE BLOOD COUNT 6.9 10^3/uL (4.0-10.0)
[2019-01-18 11:31] LABS: INR 1.23; PROTHROMBIN TIME 15.7 SECONDS (12.1-14.4)
[2019-01-18 11:58] LABS: ALBUMIN 4.1 GM/DL (3.2-5.2); ALT/SGPT 33 U/L (12-78); AMYLASE 76 U/L (25-115); BILIRUBIN,DIRECT < 0.1 MG/DL (0.0-0.2); BILIRUBIN,TOTAL 0.4 MG/DL (0.2-1.0); BLOOD UREA NITROGEN 26 MG/DL (7-18); C REACTIVE PROTEIN QUANTITATIV 0.38 MG/DL (0.00-0.30); CALCIUM LEVEL 8.9 MG/DL (8.8-10.2); CARBON DIOXIDE LEVEL 27 MEQ/L (21-32); CHLORIDE LEVEL 106 MEQ/L (98-107); GLOMERULAR FILTRATION RATE 45.5 (>42); GLUCOSE, FASTING 89 MG/DL (70-100); POTASSIUM SERUM 4.4 MEQ/L (3.5-5.1); SODIUM LEVEL 138 MEQ/L (136-145); TOTAL PROTEIN 7.9 GM/DL (6.4-8.2)
[2019-01-18] MEDS ORDERED: CLINDAMYCIN 600 MG in APPROPRIATE DILUENT 1 EA IV ONE (12:00)
[2019-01-18] MEDS ORDERED: ISOVUE-370 76% 100ML VIAL (Q9967) As Ordered ONE (12:11)
[2019-01-18] MEDS ORDERED: NS 1,000 ML IV ONE (12:15)
--- NOTE | 2019-01-18 13:27 | REP ---
CT NECK WITH CONTRAST: HISTORY: Left jaw swelling. CONTRAST: Isovue 370, 75 mL. The naso-, dodie-, and hypopharynx, larynx and subglottic trachea are normal in appearance. A well circumscribed mass is present inferomedial to and contiguous with the left parotid gland. The mass measures 2.3 cm in transverse by 2.1 cm in AP by 2.9 cm in cephalocaudal dimensions. The right parotid , submandibular and thyroid glands are normal in size and density. Small lymph nodes less than 1 cm in size are present in the internal jugular chains, posterior triangles, submandibular, and submental areas. Atherosclerotic calcification is present at the carotid bifurcations. Degenerative change is present in the cervical spine. The lung apices are clear. The visualized sinuses are clear. IMPRESSION: There is a well circumscribed 2.9 cm mass inferomedial to and contiguous with the left parotid gland. This may represent and exophytic parotid gland tumor such as a pleomorphic adenoma or carcinoma or and enlarged lymph node. Electronically Signed by Bruno Ortiz MD 01/18/2019 01:40 P
[2019-01-18 14:31] VITALS: BP 132/68
--- NOTE | 2019-01-19 14:56 | ED PDOC ---
Post-Departure Follow-Up delmy watson and anne faxed formal report of ct neck for fu Ambrose Vidales MD January 19, 2019 14:56
== END 2019-01-18 14:35 | disposition home or self-care (01) ==
LOC: M ED 09:48
DX: D11.0 Benign neoplasm of parotid gland (principal); I25.2 Old myocardial infarction; I25.10 Atherosclerotic heart disease of native coronary artery without angina pectoris; E11.9 Type 2 diabetes mellitus without complications; Z95.5 Presence of coronary angioplasty implant and graft; Z95.1 Presence of aortocoronary bypass graft; I10 Essential (primary) hypertension; E78.5 Hyperlipidemia, unspecified; Q28.2 Arteriovenous malformation of cerebral vessels; N40.0 Benign prostatic hyperplasia without lower urinary tract symptoms; K22.70 Barrett's esophagus without dysplasia; N18.9 Chronic kidney disease, unspecified; I20.9 Angina pectoris, unspecified; Z87.442 Personal history of urinary calculi; Z77.098 Contact with and (suspected) exposure to other hazardous, chiefly nonmedicinal, chemicals; Z87.891 Personal history of nicotine dependence; Z79.82 Long term (current) use of aspirin; Z79.01 Long term (current) use of anticoagulants; Z79.899 Other long term (current) drug therapy
CPT/HCPCS: 70491; 80048; 80076; 82150; 83605; 85025; 85610; 86140; 87040; 96365; 99284; Q9967

== ENCOUNTER → 2019-01-20 | Outpatient (REF) | payer MEDICARE, BC ==
[~2019-01-20] MED LIST changes: +AMLO10TA5 PO; +ASPI81TA85 PO; +B-12100010 PO; +CALC600T60 PO; +CIPRODEX; +CVS400CA PO; +CVS400LI PO; +ENOX80IN3; +FERR325T18 PO; +GABA-1171 PO; +ISOS60TA2; +LEXA5TAB13 PO; +MAGN250T7 PO; +METO1TAB32 PO; +MIRA3350 PO; +PRAL1INJ; +RANO5TAB PO; +[UNRECOGNIZED DRUG - OTHER]; +calcium
== END ==
LOC: M LAB REF 13:54
PROVIDERS: ATTEND Otolaryngology
DX: R06.00 Dyspnea, unspecified (principal)

== ENCOUNTER → 2019-01-28 | Outpatient (CLI) | payer MEDICARE, BC ==
--- NOTE | 2019-01-28 16:06 | REP ---
Clinical: Preoperative assessment . Comparison: 05/08/2017 . Technique: PA and lateral. Findings: The mediastinum demonstrates postsurgical changes including cardiac valve repair. The cardiac silhouette is normal. The lung escobar are clear and without acute consolidation, effusion, or pneumothorax. The skeletal structures are intact and normal. Impression: 1. No acute cardiopulmonary process. Electronically Signed by Quan Patel MD 01/28/2019 03:57 P
[2019-01-28 16:42] LABS: BASO % 0.4 % (0.0-1.0); EOS # 0.1 10^3/uL (0.0-0.50); EOS % 1.1 % (0.0-3.0); HEMATOCRIT 40.1 % (42.0-52.0); HEMOGLOBIN 12.9 g/dl (13.5-17.5); LYMPH % 12.7 % (24.0-44.0); MEAN CORPUSCULAR HEMOGLOBIN 32.3 pg (27.0-33.0); MEAN CORPUSCULAR HGB CONC 32.2 g/dl (32.0-36.5); MEAN CORPUSCULAR VOLUME 100.5 fl (80.0-96.0); MONO # 1.1 10^3/uL (0.0-0.8); MONO % 13.5 % (0.0-5.0); NEUTROPHILS # 5.8 10^3/uL (1.8-7.7); NEUTROPHILS % 72.1 % (36.0-66.0); PLATELET COUNT, AUTOMATED 288 10^3/uL (150-450); RED BLOOD COUNT 3.99 10^6/uL (4.30-6.10); WHITE BLOOD COUNT 8.1 10^3/uL (4.0-10.0)
--- NOTE | 2019-01-28 22:02 | ECGEPIP ---
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 Decreased heart rate compared with 04/20/2017 Electronically Signed on 01-28-2019 22:01:53 EDT by Steve Peralta
== END ==
LOC: M LAB 15:22
PROVIDERS: ATTEND Otolaryngology
DX: Z01.818 Encounter for other preprocedural examination (principal); I44.0 Atrioventricular block, first degree; I45.2 Bifascicular block

== ENCOUNTER 2019-01-29 09:17 | Day surgery (SDC) | payer MEDICARE, BC ==
[~2019-01-29] VITALS: Ht 182.9 cm; Wt 95.7 kg
[~2019-01-29 09:17] MED LIST changes: -B-12100010 PO; -CALC600T60 PO; -CVS400CA PO; -MAGN250T7 PO; -MIRA3350 PO
[2019-01-29] MEDS ORDERED: CVS400CA PO (10:07)
[2019-01-29] MEDS ORDERED: CALC600T60 PO (10:07)
[2019-01-29] MEDS ORDERED: MIRA3350 PO (10:07)
[2019-01-29] MEDS ORDERED: B-12100010 PO (10:07)
[2019-01-29] MEDS ORDERED: MAGN250T7 PO (10:07)
[2019-01-29 10:36] LABS: INR 1.6; PROTHROMBIN TIME 19.3 SECONDS (12.1-14.4)
[2019-01-29] MEDS ORDERED: PROPOFOL 200 MG/20 ML VIAL As Ordered ONE (13:00)
[2019-01-29] MEDS ORDERED: fentaNYL 100 MCG/2 ML INJECTION (J3010) As Ordered ONE (13:01)
[2019-01-29] MEDS ORDERED: ONDANSETRON 4MG/2ML VIAL (J2405) As Ordered ONE (13:01)
[2019-01-29] MEDS ORDERED: MIDAZOLAM INJ 2 MG/2 ML VIAL (J2250) As Ordered ONE (13:01)
[2019-01-29] MEDS ORDERED: dexameTHASONE 4 MG/ML 1ML VIAL (J1100) As Ordered ONE (13:01)
[2019-01-29] MEDS ORDERED: LIDOCAINE 2% INJ 100 MG/5 ML SDV (FOR ANES.) As Ordered ONE (13:01)
[2019-01-29] MEDS ORDERED: LIDOCAINE W/EPINEPHRINE 1% 20ML VIAL As Ordered ONE (13:35)
[2019-01-29] MEDS ORDERED: LIDOCAINE 2% JELLY 6 ML SYRINGE As Ordered ONE (14:14)
[2019-01-29] MEDS ORDERED: PERCOCET 5MG/325MG TAB As Ordered ONE (14:32)
[2019-01-29] MEDS ORDERED: fentaNYL 100 MCG/2 ML INJECTION (J3010) IV PRN (15:00)
[2019-01-29] MEDS ORDERED: METOCLOPRAMIDE INJ 10MG/2ML VIAL (J2765) IV PRN (15:00)
[2019-01-29] MEDS ORDERED: ACETAMINOPH W/CODEINE #3 TAB UD PO PRN (15:00)
[2019-01-29] MEDS ORDERED: LR 1,000 ML IV SCH ×2 (15:00)
[2019-01-29] MEDS ORDERED: PERCOCET 5MG/325MG TAB PO PRN (15:00)
[2019-01-29] MEDS ORDERED: ONDANSETRON 4MG/2ML VIAL (J2405) IV PRN (15:00)
[2019-01-29 15:30] VITALS: BP 136/66
--- NOTE | 2019-01-30 12:37 | RO ---
DATE OF PROCEDURE: 01/29/2019 PREPROCEDURE DIAGNOSIS: Left parotid abscess. POSTPROCEDURE DIAGNOSIS: Left parotid abscess. PROCEDURE: Incision and drainage of left parotid abscess. SURGEON: Prasanna Terry MD AGRICULTURAL ENGINEERING TECHNOLOGIST: ANESTHESIA: DESCRIPTION OF PROCEDURE: Under MAC anesthesia with the patient intubated, the patient was draped in the usual manner and prepped. I infiltrated the area with lidocaine and epinephrine. I then made an incision, divided skin and subcutaneous tissues. Blunt dissection was used to dissect down to the abscess, which I opened and drained creamy material, a large amount. I suctioned it. I sent specimens for culture and sensitivity. A quarter-inch Pura drain was placed in the wound. One suture was used to hold the drain in place. The patient tolerated the procedure well and was extubated and transferred to the recovery room in excellent condition.
== END 2019-01-29 16:00 | disposition home or self-care (01) ==
LOC: M SDC 09:17
PROVIDERS: ATTEND Otolaryngology
DX: K11.3 Abscess of salivary gland (principal); K21.9 Gastro-esophageal reflux disease without esophagitis; I10 Essential (primary) hypertension; E78.49 Other hyperlipidemia; Z79.82 Long term (current) use of aspirin; Z79.899 Other long term (current) drug therapy; Z79.01 Long term (current) use of anticoagulants; Z95.2 Presence of prosthetic heart valve; Z95.1 Presence of aortocoronary bypass graft
CPT/HCPCS: 36415; 42300; 85610; 87070; 87077; 87186; 87205; J1100; J2250; J2405; J3010

== ENCOUNTER → 2021-04-30 | Outpatient (REF) | payer MEDICARE, BC ==
[~2021-04-30] MED LIST changes: +ALIR75PE3; -AMLO10TA5 PO; +AMLO1TAB25 PO; -ASPI81TA85 PO; +ASPI81TA86 PO; +B-12100010 PO; +CALC600T60 PO; +CIPR7.5D5; -CIPRODEX; -COUM7.5T PO; +COUM7.5T6 PO; +CVS400CA PO; +ISOS1TAB35 PO; +ISOS1TAB36; -ISOS30TA4 PO; -ISOS60TA2; +MAGN250T7 PO; +MIRA3350 PO; -PRAL1INJ; +RANO500T7 PO; -RANO5TAB PO; +SENN-53 PO; -SENN1TAB40 PO
== END ==
LOC: M LAB REF 13:28
PROVIDERS: ATTEND Internal Medicine Nephrology
DX: E83.42 Hypomagnesemia (principal)

== ENCOUNTER → 2021-08-27 | Outpatient (REF) | payer MEDICARE, BC ==
[~2021-08-27] MED LIST changes: +LOSA50TA28 PO; -LOSA50TA88 PO
[2021-08-27 17:19] LABS: APPEARANCE, URINE CLEAR (CLEAR); BACTERIA, URINE AUTO NEGATIVE (NEGATIVE); BILIRUBIN, URINE AUTO NEGATIVE (NEGATIVE); BLOOD, URINE BLOOD NEGATIVE (NEGATIVE); COLOR, URINE YELLOW (YELLOW); GLUCOSE, URINE (UA) AUTO 3+ mg/dL (NEGATIVE); KETONE, URINE AUTO NEGATIVE (NEGATIVE); LEUKOCYTE ESTERASE, URINE AUTO NEGATIVE (NEGATIVE); NITRITE, URINE AUTO NEGATIVE (NEGATIVE); PROTEIN, URINE AUTO NEGATIVE (NEGATIVE); RBC, URINE AUTO 0 /HPF (0-3); SPECIFIC GRAVITY URINE AUTO 1.024 (1.002-1.035); SQUAMOUS EPITHELIAL CELL UR AU 0 /HPF (0-6); UROBILINOGEN, URINE AUTO 0.2 mg/dL (0.0-2.0); WBC, URINE AUTO 0 /HPF (0-3)
== END ==
LOC: M SMT 16:40
PROVIDERS: ATTEND Physician Assistant
DX: N40.1 Benign prostatic hyperplasia with lower urinary tract symptoms (principal)

== ENCOUNTER → 2021-10-31 | Outpatient (REF) | payer MEDICARE, BC ==
[2021-10-31 14:14] LABS: INR 1.95; PROTHROMBIN TIME 22.6 SECONDS (12.7-14.5)
== END ==
LOC: M LAB REF 12:56
PROVIDERS: ATTEND Internal Medicine Nephrology
DX: N18.32 Chronic kidney disease, stage 3b (principal); E83.42 Hypomagnesemia; Z79.01 Long term (current) use of anticoagulants

== ENCOUNTER → 2021-12-05 | Outpatient (CLI) | payer MEDICARE, BC ==
[~2021-12-05] MED LIST changes: +AZEL1SPR3 NARES; +BRIM0.2S13 OU; +EZET10TA21 PO; +FARX1TAB3 PO; +LATA0.0015 OU; +MYRB50TA PO; +PREG25CA2 PO
== END ==
LOC: M LABSMTC 09:41
PROVIDERS: ATTEND Anesthesiology
DX: Z01.818 Encounter for other preprocedural examination (principal); Z11.52 Encounter for screening for COVID-19

== ENCOUNTER 2021-12-17 10:34 | Day surgery (SDC) | payer MEDICARE, BC ==
[~2021-12-17] VITALS: Ht 182.9 cm; Wt 93.4 kg
[~2021-12-17 10:34] MED LIST changes: +CEFD300C41 PO; +CIPROFLOXACIN 400 MG in IV 1 EA IV ONE; +D3 H400T PO; -ISOS1TAB36; +ISOS1TAB36 PO; +LIDOCAINE 1% MDV 20ML VIAL SQ PRN; +LR 1,000 ML IV ONE
[2021-12-17 11:54] LABS: PROTHROMBIN TIME 13.6 SECONDS (12.7-14.5)
[2021-12-17] MEDS ORDERED: propofoL 200 MG/20 ML VIAL As Ordered ONE (12:46)
[2021-12-17] MEDS ORDERED: MIDAZOLAM INJ 2MG/2ML VIAL (J2250 PER 1MG) As Ordered ONE (12:46)
[2021-12-17] MEDS ORDERED: LIDOCAINE 2% 100MG/5ML SDV (FOR ANES.) As Ordered ONE (12:46)
[2021-12-17] MEDS ORDERED: fentaNYL 100 MCG/2 ML INJECTION As Ordered ONE ×2 (12:46→14:14)
[2021-12-17] MEDS ORDERED: ONDANSETRON 4MG/2ML VIAL As Ordered ONE (12:46)
[2021-12-17] MEDS ORDERED: dexameTHASONE 4 MG/ML 1ML VIAL (J1100 PER 1MG) As Ordered ONE (12:46)
[2021-12-17] MEDS ORDERED: SEVOFLURANE INHAL SOLN 250 ML BTL As Ordered ONE (14:04)
[2021-12-17] MEDS ORDERED: ACETAMINOPHEN 1000MG 100ML IV BTL (OFIRMEV) (J0131 PER 10MG) As Ordered ONE (14:14)
[2021-12-17] MEDS ORDERED: CEFD300C41 PO (14:32)
[2021-12-17] MEDS ORDERED: oxyCODONE 5MG TAB PO PRN (14:55)
[2021-12-17] MEDS ORDERED: ONDANSETRON 4MG/2ML VIAL IV PRN (14:55)
[2021-12-17] MEDS ORDERED: LR 1,000 ML IV SCH (14:55)
[2021-12-17] MEDS ORDERED: fentaNYL 100 MCG/2 ML INJECTION IV PRN (14:55)
[2021-12-17 15:30] VITALS: BP 136/65
== END 2021-12-17 15:51 | disposition home or self-care (01) ==
LOC: M SDC 10:34
PROVIDERS: ATTEND Urology
DX: D30.3 Benign neoplasm of bladder (principal); N30.90 Cystitis, unspecified without hematuria; N40.0 Benign prostatic hyperplasia without lower urinary tract symptoms; I11.9 Hypertensive heart disease without heart failure; E11.9 Type 2 diabetes mellitus without complications; K21.9 Gastro-esophageal reflux disease without esophagitis; E78.00 Pure hypercholesterolemia, unspecified; I25.10 Atherosclerotic heart disease of native coronary artery without angina pectoris; Z86.73 Personal history of transient ischemic attack (TIA), and cerebral infarction without residual deficits; M19.90 Unspecified osteoarthritis, unspecified site; M54.9 Dorsalgia, unspecified; Z95.2 Presence of prosthetic heart valve; Z87.891 Personal history of nicotine dependence; Z79.899 Other long term (current) drug therapy; Z79.82 Long term (current) use of aspirin; Z79.2 Long term (current) use of antibiotics; Z79.01 Long term (current) use of anticoagulants; Z79.84 Long term (current) use of oral hypoglycemic drugs
CPT/HCPCS: 36415; 52204; 85610; 87428; 88108; 88305; J0131; J0744; J2250; J2405; J3010

== ENCOUNTER → 2024-03-03 | Outpatient (CLI) | payer MEDICARE, OTHER ==
[~2024-03-03] MED LIST changes: +CEFD1CAP9 PO; -CEFD300C41 PO; -CIPROFLOXACIN 400 MG in IV 1 EA IV ONE; -LIDOCAINE 1% MDV 20ML VIAL SQ PRN; -LR 1,000 ML IV ONE; -PREG25CA2 PO; +PREG25CA3 PO
== END ==
LOC: M EKG 08:32
PROVIDERS: ATTEND Internal Medicine Cardiovascular Disease
DX: I45.3 Trifascicular block (principal); R55 Syncope and collapse

== ENCOUNTER 2024-04-01 09:49 | Day surgery (SDC) | payer MEDICARE ==
[~2024-04-01] VITALS: Ht 180.3 cm; Wt 99.7 kg
[~2024-04-01 09:49] MED LIST changes: +FINA5TAB2 PO; +GLIP5TAB17 PO; +OMEP-173 PO; +RANO500T2 PO; +TAMS1CAP17 PO; +VITA100065 PO
[2024-04-01] MEDS ORDERED: LIDOCAINE 2% 100MG/5ML SDV (FOR ANES.) As Ordered ONE (10:32)
[2024-04-01] MEDS ORDERED: propofoL 200 MG/20 ML VIAL As Ordered ONE (10:32)
[2024-04-01] MEDS ORDERED: GLUCAGON INJ 1MG VIAL SC PRN (10:45)
[2024-04-01] MEDS ORDERED: GLUCOSE 4 GM CHEW PO PRN (10:45)
[2024-04-01] MEDS ORDERED: INSULIN LISPRO (NovoLOG) PER UNIT SC PRN (10:45)
[2024-04-01] MEDS ORDERED: DEXTROSE 50% 50ML SYRINGE IV PRN (10:45)
[2024-04-01 10:55] LABS: INR 1.8; PROTHROMBIN TIME 20.3 SECONDS (12.5-14.5)
[2024-04-01] MEDS: LR 1,000 ML IV SCH (11:41)
[2024-04-01] MEDS: ISOVUE-300 61% 100ML VIAL As Ordered ONE (11:42)
[2024-04-01] MEDS: ceFAZolin SOD 2 GM in IV 1 EA IV ONE (12:05)
[2024-04-01] MEDS: LIDOCAINE 1% MDV 20ML VIAL As Ordered ONE (13:24)
[2024-04-01] MEDS ORDERED: ONDANSETRON 4MG 2ML VIAL IV PRN (13:55)
[2024-04-01 15:02] VITALS: BP 140/79; TEMP 97.1; O2SAT 96
== END 2024-04-01 15:09 | disposition home or self-care (01) ==
LOC: M SDC 09:49
PROVIDERS: ATTEND Internal Medicine Cardiovascular Disease
DX: I44.2 Atrioventricular block, complete (principal); R55 Syncope and collapse; I45.3 Trifascicular block; I44.0 Atrioventricular block, first degree; I45.10 Unspecified right bundle-branch block; I25.10 Atherosclerotic heart disease of native coronary artery without angina pectoris; Z95.1 Presence of aortocoronary bypass graft; Z95.5 Presence of coronary angioplasty implant and graft; Z95.2 Presence of prosthetic heart valve; R07.9 Chest pain, unspecified; E11.9 Type 2 diabetes mellitus without complications; G47.30 Sleep apnea, unspecified; I10 Essential (primary) hypertension; Z86.73 Personal history of transient ischemic attack (TIA), and cerebral infarction without residual deficits; M19.90 Unspecified osteoarthritis, unspecified site; K22.70 Barrett's esophagus without dysplasia; R06.02 Shortness of breath; M54.9 Dorsalgia, unspecified; G57.63 Lesion of plantar nerve, bilateral lower limbs; G57.83 Other specified mononeuropathies of bilateral lower limbs; N40.0 Benign prostatic hyperplasia without lower urinary tract symptoms; Z88.8 Allergy status to other drugs, medicaments and biological substances; Z79.899 Other long term (current) drug therapy
CPT/HCPCS: 33208; 36415; 71045; 76000; 85610; 93005; C1785; C1898; J0690

== ENCOUNTER → 2024-05-11 | Outpatient (REF) | payer MEDICARE ==
[2024-05-11 18:49] LABS: TOTAL PROTEIN,RANDOM URINE 80.5 MG/DL (0.0-14.0)
[2024-05-11 18:53] LABS: CREATININE,RANDOM URINE 173.6 MG/DL
== END ==
LOC: M LAB REF 17:08
PROVIDERS: ATTEND Internal Medicine Nephrology
DX: N18.32 Chronic kidney disease, stage 3b (principal)

== ENCOUNTER → 2024-09-07 | Outpatient (CLI) | payer MEDICARE, OTHER | LOC: M CARPUL 07:54 | PROVIDERS: ATTEND Registered Nurse | DX: I50.32 Chronic diastolic (congestive) heart failure (principal); I49.8 Other specified cardiac arrhythmias; Z95.2 Presence of prosthetic heart valve; I50.810 Right heart failure, unspecified; Z95.810 Presence of automatic (implantable) cardiac defibrillator ==